=== PATIENT | male | born 1935 | race Caucasian/White ===

== ENCOUNTER 2017-07-02 12:03 | Inpatient (IN) ==
[2017-07-02] MEDS ORDERED: IODIXANOL IV ONE (12:04)
[2017-07-02] MEDS ORDERED: ADENOSINE 3 MG/ML VIAL IV ONE ×3 (12:04→23:00)
[2017-07-02] MEDS ORDERED: DILTIAZEM 25 MG/5 ML VIAL IV ONE ×5 (12:15→19:21)
[2017-07-02] MEDS ORDERED: DILTIAZEM 125 MG in 0.9 % SODIUM CHLORIDE 100 ML IV SCH (12:15)
[2017-07-02] MEDS ORDERED: 0.9 % SODIUM CHLORIDE 1,000 ML IV ONE ×3 (12:33→18:24)
--- NOTE | 2017-07-02 12:35 | Emergency Department Note ---
Arrhythmia/Palpitations HPI - General Chief Complaint: Arrhythmia/Palpitations Stated Complaint: rapid heart rate Time Seen by Provider: 07/02/17 12:15 Source: patient Mode of arrival: ambulatory Limitations: no limitations - History of Present Illness HPI Narrative: This patient was sent over from [facility] office with a tachycardia syndrome. Patient is asymptomatic except for up when walking around when he gets a little short of breath. He was slightly hypotensive in the 90s at the office. He has had this a couple times in the recent past. - Related Data Home Medications Medication Instructions Recorded Confirmed aspirin 81 mg tablet,delayed 81 mg PO QDAY tab 05/03/15 03/12/17 release albuterol sulfate concentrate 2.5 5 mg INHALATION Q4H PRN 08/26/15 03/12/17 mg/0.5 mL solution for nebulization ipratropium-albuterol 0.5 mg-3 INHALATION 0 Days 08/26/15 03/12/17 mg(2.5 mg base)/3 mL nebulization soln ascorbic acid (vitamin C) 250 mg 250 mg PO QDAY 03/10/16 03/12/17 tablet losartan 100 mg tablet 50 mg PO QDAY tab 12/18/16 03/12/17 cholecalciferol (vitamin D3) PO QDAY 02/23/17 03/12/17 Previous Rx's Medication Instructions Recorded ferrous sulfate 325 mg (65 mg 325 mg PO .COMPLEX #30 tab 09/24/15 iron) tablet furosemide 20 mg tablet 20 mg PO QDAY #90 tab 10/08/16 atorvastatin 10 mg tablet 10 mg PO QDAY #90 tab 11/10/16 predniSONE [Prednisone] 20 mg PO DAILY #23 tab 01/06/17 amlodipine 10 mg tablet 10 mg PO QDAY #30 tab 04/09/17 hydrocodone 7.5 mg-acetaminophen 1 tab PO Q6H PRN #30 tab 06/04/17 325 mg tablet tramadol 50 mg tablet 50 mg PO TID PRN 90 Days 07/01/17 Allergies Allergy/AdvReac Type Severity Reaction Status Date / Time No Known Drug Allergies Allergy Verified 07/02/17 11:07 Review of Systems Constitutional: Denies: fever Eyes: Denies: eye pain ENT ED: Denies: ear pain Cardiovascular: Reports: dyspnea on exertion. Denies: chest pain Respiratory: Denies: cough Gastrointestinal: Denies: abdominal pain, nausea Genitourinary: Denies: urgency Musculoskeletal: Denies: back pain Integumentary: Denies: rash Neurological: Denies: headache Past Medical History - Past Medical History [facility] Narrative: Medical History (Last Updated 07/02/17 @ 11:45 by Janine Andujar, ANDREEA, EXHIBITION CARVER) Acute exacerbation of chronic obstructive airways disease (Acute) Hypotension (Acute) Cardiac arrhythmia (Chronic) Kidney disease, chronic, stage III (GFR 30-59 ml/min) (Chronic) Hematuria (Chronic) Bilateral carotid artery stenosis (Chronic) Heart valve disease (Chronic) Tobacco abuse (Chronic) SVT (supraventricular tachycardia) (Chronic) Pulmonary hypertension, secondary (Chronic) Mitral valve disorder (Chronic) Lung nodule (Chronic) Hypertension, essential (Chronic) Hyperlipidemia (Chronic) Hip pain (Chronic) Erectile dysfunction (Chronic) CAD (coronary artery disease) (Chronic) Colon polyp (Chronic) COPD (chronic obstructive pulmonary disease) (Chronic) Back pain (Chronic) Anemia (Chronic) Allergic rhinitis (Chronic) Emphysema lung (Resolved) Hemoptysis (Resolved) History of peptic ulcer disease (Resolved) Hx of angiography (Resolved) Hypercholesteremia (Resolved) Hyperkalemia (Resolved) Muscle strain of right upper extremity (Resolved) Pneumonia (Resolved) Pneumothorax after biopsy (Resolved) Screening for colon cancer (Resolved) Screening for prostate cancer (Resolved) Past Surgical History (Last Reviewed 07/02/17 @ 11:44 by Janine Andujar, ANDREEA, EXHIBITION CARVER) History of gastrectomy (Chronic) Hx of appendectomy (Acute) History of carotid endarterectomy (Resolved) History of dental surgery (Resolved) Hx of angioplasty (Resolved) Hx of appendectomy (Resolved) Hx of colonoscopy (Resolved) Hx of esophagogastroduodenoscopy (Resolved) Ulcer, surgical (Resolved) Family History (Last Reviewed 07/02/17 @ 11:44 by Janine Andujar, ANDREEA, EXHIBITION CARVER) mother Family history of malignant neoplasm, Onset Age: 91 Family history of arthritis grandfather (maternal) Acute myocardial infarction son Osteoarthritis Malignant neoplasm of pancreas Medical history: Reports: COPD, coronary artery disease, hyperlipidemia, hypertension, peripheral artery disease, renal disease (Stage III), valvular heart disease (Aortic), other (Pulmonary hypertension, bilateral hearing loss, history of ulcers) Surgical history ED: Reports: angioplasty/stent, appendectomy, carotid endarterectomy, other (Billroth II) Physical Exam - General Limitations: no limitations General appearance: alert, in no apparent distress - Head Head exam: atraumatic, normocephalic - Eye Eye exam: Present: normal appearance - ENT ENT exam: normal exam - Neck Neck exam: Present: normal inspection - Chest Chest inspection: Present: normal inspection - Respiratory Respiratory exam: Present: normal lung sounds bilaterally - Cardiovascular Cardiovascular exam: Present: regular rate, normal rhythm, normal heart sounds - Abdominal Exam Abdominal exam: Present: soft. Absent: distention, tenderness - Neurological Exam Neurological exam: Present: alert - Psychiatric Psychiatric exam: Present: normal affect, normal mood - Skin Skin exam: Present: warm, dry, intact, normal color Course Vital Signs Temperature 97.6 F 07/02/17 12:04 Respiratory Rate 18 07/02/17 12:04 Blood Pressure 108/97 07/02/17 12:04 Pulse Oximetry (%) 97 07/02/17 12:04 Temperature 97.6 F 07/02/17 12:04 Pulse Rate 74 07/02/17 17:21 Respiratory Rate 15 07/02/17 17:21 Blood Pressure 120/70 07/02/17 17:15 Pulse Oximetry (%) 93 07/02/17 17:21 Arrhythmia/Palpitations - [facility] Narrative Medical decision making narrative: This patient was given 6 and then 12 mg of adenosine and did show some flutter waves. We then treated him with diltiazem 5 mg drip and multiple boluses of 10 mg each. His initial troponin was slightly elevated at 0.06 but repeat was 0.04 4 hours later. Have discussed the case with Dr. Ma and he will be admitted to telemetry. - Lab Data Lab results reviewed: Yes I reviewed the patient's lab results. Result diagrams: 07/02/17 12:25 07/02/17 12:25 Lab Results 07/02/17 07/02/17 07/02/17 Range/Units 12:25 12:25 12:25 WBC 7.3 (4.5-11.0) K/mcL RBC 3.69 L (4.50-5.90) M/mcL Hgb 11.6 L (13.5-16.5) g/dL Hct 35.0 L (41.0-55.0) % MCV 94.9 (80.0-100.0) fL MCH 31.4 (26.0-34.0) pg MCHC 33.1 (31.0-36.0) g/dL RDW 14.3 (11.5-14.5) % Plt Count 219 (140-440) K/mcL MPV 7.8 (7.4-10.4) fL Gran % 69.8 (38.0-78.0) % Lymph % (Auto) 18.7 (15.5-49.0) % [place] % (Auto) 9.4 (1.0-12.0) % Eos % (Auto) 1.5 (0.0-7.0) % Baso % (Auto) 0.6 (0.0-2.0) % Gran # 5.1 (1.8-8.0) K/mcL Lymph # (Auto) 1.4 L (1.5-4.8) K/mcL [place] # (Auto) 0.7 (0.1-0.9) K/mcL Eos # (Auto) 0.1 (0.0-0.7) K/mcL Baso # (Auto) 0 (0.0-0.3) K/mcL Sodium 138 (133-145) mmol/L Potassium 4.9 (3.3-5.1) mmol/L Chloride 101 (96-108) mmol/L Carbon Dioxide 25 (22-30) mmol/L Anion Gap 12.0 (8-16) BUN 32 H (8-23) mg/dl Creatinine 1.4 H (0.7-1.2) mg/dl GFR Calculation 46 Glucose 124 H (70-105) mg/dL Calcium 8.9 (8.6-10.4) mg/dl Total Bilirubin 0.4 (0.0-1.0) mg/dL AST 33 (0-37) U/l ALT 39 (0-40) U/l Alkaline Phosphatase 98 (39-117) U/L Troponin T 0.06 H* (0-0.03) ng/ml Total Protein 6.3 (5.9-8.4) gm/dL Albumin 3.8 (3.2-5.2) gm/dL Globulin 2.5 (2.2-3.7) gm/dL Albumin/Globulin Ratio 1.5 (1.0-2.3) 07/02/ Range/Units 16:10 WBC (4.5-11.0) K/mcL RBC (4.50-5.90) M/mcL Hgb (13.5-16.5) g/dL Hct (41.0-55.0) % MCV (80.0-100.0) fL MCH (26.0-34.0) pg MCHC (31.0-36.0) g/dL RDW (11.5-14.5) % Plt Count (140-440) K/mcL MPV (7.4-10.4) fL Gran % (38.0-78.0) % Lymph % (Auto) (15.5-49.0) % [place] % (Auto) (1.0-12.0) % Eos % (Auto) (0.0-7.0) % Baso % (Auto) (0.0-2.0) % Gran # (1.8-8.0) K/mcL Lymph # (Auto) (1.5-4.8) K/mcL [place] # (Auto) (0.1-0.9) K/mcL Eos # (Auto) (0.0-0.7) K/mcL Baso # (Auto) (0.0-0.3) K/mcL Sodium (133-145) mmol/L Potassium (3.3-5.1) mmol/L Chloride (96-108) mmol/L Carbon Dioxide (22-30) mmol/L Anion Gap (8-16) BUN (8-23) mg/dl Creatinine (0.7-1.2) mg/dl GFR Calculation Glucose (70-105) mg/dL Calcium (8.6-10.4) mg/dl Total Bilirubin (0.0-1.0) mg/dL AST (0-37) U/l ALT (0-40) U/l Alkaline Phosphatase (39-117) U/L Troponin T 0.04 H* (0-0.03) ng/ml Total Protein (5.9-8.4) gm/dL Albumin (3.2-5.2) gm/dL Globulin (2.2-3.7) gm/dL Albumin/Globulin Ratio (1.0-2.3) Disposition Pt seen by COFFEE SUPERVISOR/PA only: No Clinical Impression: Atrial flutter Disposition: Xfer As Outpt/Obs ([facility]) Condition: Good Referrals: Janine Andujar DNP, EXHIBITION CARVER [Primary Care Provider] - Time of Disposition: 17:44
[2017-07-02 12:48] LABS: Basophils # (Auto) 0 K/mcL (0.0-0.3); Basophils % (Auto) 0.6 % (0.0-2.0); Eosinophils # (Auto) 0.1 K/mcL (0.0-0.7); Eosinophils % (Auto) 1.5 % (0.0-7.0); Granulocytes % (Auto) 69.8 % (38.0-78.0); Lymphocytes # (Auto) 1.4 K/mcL (1.5-4.8); Lymphocytes % (Auto) 18.7 % (15.5-49.0); Mean Cell Volume 94.9 fL (80.0-100.0); Mean Corpuscular HGB Conc 33.1 g/dL (31.0-36.0); Mean Corpuscular Hemoglobin 31.4 pg (26.0-34.0); Monocytes # (Auto) 0.7 K/mcL (0.1-0.9); Monocytes % (Auto) 9.4 % (1.0-12.0); Platelet Count 219 K/mcL (140-440); RBC 3.69 M/mcL (4.50-5.90); Red Cell Distribution Width 14.3 % (11.5-14.5)
[2017-07-02 13:15] LABS: ALT/SGPT 39 U/l (0-40); Albumin 3.8 gm/dL (3.2-5.2); Albumin/Globulin Ratio 1.5 (1.0-2.3); Alkaline Phosphatase 98 U/L (39-117); Blood Urea Nitrogen 32 mg/dl (8-23)
[2017-07-02] MEDS ORDERED: traMADol 50 MG TABLET PO ONE (18:23)
[2017-07-02] MEDS ORDERED: HYDROcodone/APAP 5/325MG TABLET PO ONE (18:23)
[2017-07-02] MEDS ORDERED: ONDANSETRON 4 MG/2 ML VIAL IV PRN (20:36)
[2017-07-02] MEDS ORDERED: traZODone HCL 50 MG TABLET PO PRN (20:36)
[2017-07-02] MEDS ORDERED: guaiFENesin/CODEINE 10 ML UDC PO PRN (20:36)
[2017-07-02] MEDS ORDERED: POTASSIUM CHLORIDE 20 MEQ PACKET PO PRN (20:36)
[2017-07-02] MEDS ORDERED: MAGNESIUM SULFATE 2 GM/50 ML BAG IV PRN (20:36)
[2017-07-02] MEDS ORDERED: METOPROLOL TARTRATE 25 MG TABLET PO SCH (21:00)
[2017-07-02] MEDS: BUDESONIDE 0.5 MG/2 ML AMPUL.NEB NEB SCH (21:10)
[2017-07-02] MEDS: IPRATROPIUM 2.5 ML AMPUL.NEB NEB PRN (21:10)
[2017-07-02] MEDS ORDERED: IPRATROPIUM 2.5 ML AMPUL.NEB ONE (21:14)
[2017-07-02] MEDS ORDERED: DILTIAZEM 30 MG TABLET PO ONE (21:17)
[2017-07-02] MEDS: SENNOSIDES/DOCUSATE SODIUM 1 TAB TABLET PO SCH (21:18)
[2017-07-02] MEDS: METOPROLOL TARTRATE 5 MG/5 ML VIAL IV SCH (21:18)
[2017-07-02] MEDS: DOCUSATE SODIUM 100 MG CAPSULE PO SCH (21:18)
[2017-07-02] MEDS: HEPARIN 5,000 UNIT/ML VIAL SQ SCH (21:18)
--- NOTE | 2017-07-02 21:44 | Internal Med History&Physical ---
Medical - H&P: HPI Patient information: Note initiated : 07/02/17 at 9:40 pm Service Date, if different from initiated Date: [] Patient: Fareed West 81 y/o M admitted on 07/02/17 for Rapid Heart Rate. Chief Complaint: [] Chief complaint: SOB History of present illness: Mr. West is a 81 year old M who was seen at [facility] Aval[facility]'s office for chest palpitations and shortness of breath. e was subsequently referred to [facility] ER where initial workup was significant for a flutter with RVR with rate around 150. Patient was started on Cardizem drip. Initial troponin 0.06 followed by repeat troponin 4 hour 0.04. Patient responded well to diltiazem drip and subsequently hospitalist service was consulted. Other than that further workup in the ER was essentially unremarkable including CT angiogram chest. At the time of examination patient is alert oriented however fairly short of breath. he was able to answer most of the questions but unable to talk in full sentences. He has been seeing railroad dining car stewardess Dr. Truong along with interventional radiologist Ambrocio Rodriguez for PAD. he denies recent changes in medication. He denies high salt intake diet. He denies chest pain headache photophobia or sick contacts. Denies fever or productive cough. He is currently on aspirin and Plavix. eyes normal baseline he is able to ambulate and currently lives with his son and [id number]. He is fairly functional He denies diarrhea or abdominal pain joint pain and rash. REVIEW OF SYSTEMS a 10 point review of systems is performed and is negative except for those discussed above Review of systems: s above Medical - H&P: PMH Medical history: peripheral artery disease coronary artery disease ypertension Hyperlipidemia COPD Degenerative joint disease Surgical history: History of gastrectomy (Chronic) Hx of appendectomy (Acute) History of carotid endarterectomy (Resolved) History of dental surgery (Resolved) Hx of angioplasty (Resolved) Hx of appendectomy (Resolved) Hx of colonoscopy (Resolved) Hx of esophagogastroduodenoscopy (Resolved) Ulcer, surgical (Resolved) Pertinent family history: mother Family history of malignant neoplasm, Onset Age: 91 Family history of arthritis grandfather (maternal) Acute myocardial infarction son Osteoarthritis Malignant neoplasm of pancreas Functional capacity: uses cane/walker Drug use: none Alcohol use: none Medical - H&P: Meds Home Medications Medication Instructions Recorded Confirmed Type aspirin 81 mg tablet,delayed 81 mg PO QDAY tab 05/03/15 03/12/17 History release albuterol sulfate concentrate 2.5 5 mg INHALATION Q4H PRN 08/26/15 03/12/17 History mg/0.5 mL solution for nebulization ipratropium-albuterol 0.5 mg-3 INHALATION 0 Days 08/26/15 03/12/17 History mg(2.5 mg base)/3 mL nebulization soln ferrous sulfate 325 mg (65 mg 325 mg PO .COMPLEX #30 tab 09/24/15 03/12/17 Rx iron) tablet ascorbic acid (vitamin C) 250 mg 250 mg PO QDAY 03/10/16 03/12/17 History tablet furosemide 20 mg tablet 20 mg PO QDAY #90 tab 10/08/16 03/12/17 Rx atorvastatin 10 mg tablet 10 mg PO QDAY #90 tab 11/10/16 03/12/17 Rx losartan 100 mg tablet 50 mg PO QDAY tab 12/18/16 03/12/17 History predniSONE [Prednisone] 20 mg PO DAILY #23 tab 01/06/17 03/12/17 Rx cholecalciferol (vitamin D3) PO QDAY 02/23/17 03/12/17 History amlodipine 10 mg tablet 10 mg PO QDAY #30 tab 04/09/17 Rx hydrocodone 7.5 mg-acetaminophen 1 tab PO Q6H PRN #30 tab 06/04/17 Rx 325 mg tablet tramadol 50 mg tablet 50 mg PO TID PRN 90 Days 07/01/17 Rx Allergies Allergy/AdvReac Type Severity Reaction Status Date / Time No Known Drug Allergies Allergy Verified 07/02/17 11:07 Medical - H&P: Exam - Constitutional Vitals: Temp Pulse Resp BP Pulse Ox 97.6 F 92 H 18 113/80 94 07/02/17 20:47 07/02/17 21:11 07/02/17 21:11 07/02/17 20:47 07/02/17 21:27 General appearance: thin Exam: pupils symmetric oral cavity dry No eardischarge head normocephalic neck no lymphadenopathy s1 and S2 irregular rhythm, eSM grade 1 prolonged expiratory rhonchi bdomen soft Lower extremity no cyanosis clubbing stasis changes loss of hair folliclesLower extremity kin brawny induration lower extremity Psych alert cooperative neuro nonfocal Medical - H&P: Reslt - Labs CBC & Chem 7: 07/02/17 12:25 07/02/17 12:25 Medical - H&P: A/P (1) Atrial flutter with rapid ventricular response Current visit: Yes Status: Acute * A flutter with RVR-on diltiazem drip. ransition to oral diltiazem. Echo reviewed. EF 65%withmoderate to severe AR. ontinue rate control measures. Admitted to telemetry * cOPD exacerbations continue bronchodilators/nhaled steroids * History of peripheral vascular disease continue aspirin and statin * Hypertension continue olmesartan/amlodipine * full code plan * iV diltiazem,transition to by mouth diltiazem * pre-existing medical condition management as above * admitting to telemetry
[2017-07-02] MEDS: 0.9 % SODIUM CHLORIDE 10 ML SYRINGE IV SCH (22:26)
[2017-07-03] MEDS ORDERED: DILTIAZEM 125 MG in 0.9 % SODIUM CHLORIDE 100 ML IV SCH (00:15)
[2017-07-03] MEDS: ACETAMINOPHEN 325 MG TABLET PO PRN (01:25)
[2017-07-03] MEDS: 0.9 % SODIUM CHLORIDE 10 ML SYRINGE IV SCH ×3 (05:33→22:07)
[2017-07-03 06:23] LABS: Mean Cell Volume 94.7 fL (80.0-100.0); Mean Corpuscular Hemoglobin 31.3 pg (26.0-34.0); Platelet Count 187 K/mcL (140-440); RBC 3.48 M/mcL (4.50-5.90); Red Cell Distribution Width 14.2 % (11.5-14.5)
[2017-07-03 06:54] LABS: ALT/SGPT 80 U/l (0-40); Albumin 3.4 gm/dL (3.2-5.2); Albumin/Globulin Ratio 1.5 (1.0-2.3); Alkaline Phosphatase 139 U/L (39-117); Bilirubin,Direct < 0.2 mg/dL (0.0-0.3); Blood Urea Nitrogen 29 mg/dl (8-23); Gamma Glutamyl Transpeptidase 44 U/L (8-61); Uric Acid 7.5 mg/dL (2.5-8.0)
--- NOTE | 2017-07-03 06:57 | Cat Scan Report ---
CLINICAL INFORMATION: Dyspnea COMPARISON: 03/17/2016 and 04/21/[address] TECHNIQUE: Axial images obtained through the chest. 80 cc intravenous contrast administration was administered, and scanning was performed during pulmonary arterial phase. Sagittally and coronally reformatted images were obtained. MIP reformatted images. FINDINGS: Mediastinal windows show mild enlargement of the central pulmonary arteries compatible with pulmonary hypertension. Pulmonary arteries are well opacified - no evidence of pulmonary embolus. The thoracic aorta normal in contour and caliber with diffuse atherosclerotic plaque. The heart is mildly enlarged and heavy fibrofatty calcific abscess chronic plaque throughout the coronary arteries. A few mildly enlarged lymph nodes in the lower mediastinal region, ranging up to 12 mm in the azygos region, are unchanged previous study. They're almost certainly benign reactive lymph nodes Pulmonary parenchymal windows show severe, but stable, centrilobular emphysema changes featuring chronic bronchitis, elevation lung volumes multiple bullae, predominantly in the upper lobes, and scattered scarring. There is a 19 mm stellate density in the anterior segment left upper lobe (image 44) which shows progression in size since the 03/17/2016 study 1.5 years ago. At that time, it was only 9 mm. A small bandlike region of fibrosis more superiorly in the left upper lobe is stable. There are new moderate sized patchy alveolar infiltrates scattered throughout the right lower lobe (three and, to a lesser extent, the left lower lobe, right middle lobe and both upper lobes. There are also small amounts of debris within the trachea. Findings suspicious for aspiration pneumonia. Small bilateral pleural effusions have also developed. Images through the abdomen show small amount of ascites which is new. The noncontrasted kidneys spleen and liver are grossly normal. Moderate bilateral adrenal hyperplasia again noted IMPRESSION: 1. No evidence of pulmonary embolus 2. Severe centrilobular emphysema changes. Enlarged central pulmonary arteries compatible with pulmonary hypertension related to COPD 3. Moderate sized patchy infiltrates in the peripheral right lower lobe and smaller peripheral infiltrates in the left lower lobe, both upper and right middle lobes. There is also debris within the airways all suspicious for aspiration pneumonia. Small bilateral pleural effusions noted 4. 19 mm enlarging stellate density in the anterior segment of the left upper lobe. While this is likely represents progression of focal fibrosis, neoplasia cannot be excluded 5. Moderate bilateral adrenal hyperplasia - stable 6. Small amount of ascites is noted - new. Interpreted and Authenticated by: Ambrocio Lemus 07/03/17
[2017-07-03 07:18] LABS: Eosinophils % (Manual) 1 % (0-7); Lymphocytes % 17 % (15-49); Monocytes % (Manual) 2 % (1-12); Platelet Estimate NORMAL (NORMAL); RBC Morphology NORMAL (NORMAL); Segmented Neutrophils % 80 % (38-78)
[2017-07-03] MEDS: DILTIAZEM 30 MG TABLET PO SCH ×4 (07:26→23:42)
[2017-07-03] MEDS: MULTIVIT,THER IRON,CA,FA & MIN 1 TABLET PO SCH (07:26)
[2017-07-03] MEDS: DOCUSATE SODIUM 100 MG CAPSULE PO SCH ×2 (07:26→20:43)
[2017-07-03] MEDS: HEPARIN 5,000 UNIT/ML VIAL SQ SCH ×2 (07:26→20:43)
[2017-07-03] MEDS: IPRATROPIUM 2.5 ML AMPUL.NEB NEB PRN ×2 (08:17→19:50)
[2017-07-03] MEDS: BUDESONIDE 0.5 MG/2 ML AMPUL.NEB NEB SCH ×2 (08:17→19:50)
--- NOTE | 2017-07-03 09:01 | XRay Report ---
CLINICAL INFORMATION: Wheezing and shortness of breath COMPARISON: 01/06/2017 FINDINGS: The heart is mildly enlarged - increased from previous study. Mediastinum is unremarkable. The pulmonary arteries are mildly distended and there is mild interstitial edema throughout both lungs. Moderate bibasilar infiltrates have developed with small effusions IMPRESSION: 1. Mild CHF 2. Moderate bibasilar infiltrates with small effusions - suspect aspiration. Interpreted and Authenticated by: Ambrocio Lemus 07/03/17
[2017-07-03] MEDS ORDERED: DILTIAZEM 125 MG in 0.9 % SODIUM CHLORIDE 100 ML IV PRN (10:30)
--- NOTE | 2017-07-03 12:34 | Internal Med Progress Note ---
Medical - PN: Subj Patient information: Note initiated : 07/03/17 at 12:32 pm Service Date, if different from initiated Date: [] Patient: Fareed West a 81 y/o M admitted on 07/02/17 for Rapid Heart Rate. Chief Complaint: [] Interval history: 07/02-Mr. West is a 81 year old M who was seen at [facility] A[facility]'s office for chest palpitations and shortness of breath. e was subsequently referred to [facility] ER where initial workup was significant for a flutter with RVR with rate around 150. Patient was started on Cardizem drip. Initial troponin 0.06 followed by repeat troponin 4 hour 0.04. Patient responded well to diltiazem drip and subsequently hospitalist service was consulted. Other than that further workup in the ER was essentially unremarkable including CT angiogram chest. At the time of examination patient is alert oriented however fairly short of breath. he was able to answer most of the questions but unable to talk in full sentences. He has been seeing client solutions manager Dr. Truong along with interventional radiologist Ambrocio Rodriguez for PAD. he denies recent changes in medication. He denies high salt intake diet. He denies chest pain headache photophobia or sick contacts. Denies fever or productive cough. He is currently on aspirin and Plavix. \ 07/03- atient doing well. Now in sinus rhythm. On diltiazem 60 milligrams 4 times a day. No overnight fever chills nausea vomiting chest pain. no concerns per staff. Ambulating and tolerating diet. - Constitutional Vitals: Vital Signs Temp Pulse Resp BP Pulse Ox 97.4 F 78 20 154/65 94 07/03/17 07:05 07/03/17 08:18 07/03/17 08:18 07/03/17 07:05 07/03/17 08:18 Period Temp Pulse Resp BP Sys/Roche Pulse Ox Last 24 Hr 97.0 F-98.2 F 77-92 18-21 90-154/48-87 85-99 Intake and Output 07/02/17 07/03/17 07/03/17 21:59 05:59 13:59 Intake Total 42 / 42 420 / 420 Output Total 225 / 225 200 / 200 Balance -183 / -183 220 / 220 Weight 120 lb 120 lb Patient Weight 07/04/17 05:59 Weight 120 lb Intake & Output: Intake & Output 07/02/17 07/03/17 07/03/17 21:59 05:59 13:59 Intake Total 42 / 42 420 / 420 Output Total 225 / 225 200 / 200 Balance -183 / -183 220 / 220 Weight 120 lb 120 lb Intake: IV 42 / 42 Oral 420 / 420 Output: Void Amount 225 / 225 200 / 200 Other: Meal Breakfast Percent of Meal Consumed 100% Feeding Ability Assist with Tray Set Up # Voids 1 General appearance: no acute distress, thin Exam: lert oriented nonlabored breathing nondistended abdomen telemetry tachycardia with sinus Medical - PN: Obj Da - Labs CBC & Chem 7: 07/03/17 03:51 07/03/17 03:51 Labs: Abnormal Lab Results 07/03/17 07/03/17 03:51 03:51 RBC 3.48 L Hgb 10.9 L Hct 33.0 L Seg Neutrophils % 80 H Potassium 5.2 H Carbon Dioxide 19 L BUN 29 H Calcium 8.5 L AST 70 H ALT 80 H Alkaline Phosphatase 139 H Total Protein 5.6 L Meds: Medications Acetaminophen (Tylenol) 650 mg PO Q4-6HP PRN PRN Reason: PAIN/FEVER > 101 Last Admin: 07/03/17 01:25 Dose: 650 mg Budesonide (Pulmicort) 0.5 mg NEB Q12 [facility] Last Admin: 07/03/17 08:17 Dose: 0.5 mg Diltiazem HCl (Cardizem) 60 mg PO ACHS [facility] Last Admin: 07/03/17 07:26 Dose: 60 mg Docusate Sodium (Colace) 100 mg PO BID [facility] Last Admin: 07/03/17 07:26 Dose: 100 mg Guaifenesin/Codeine Phosphate (Robitussin Ac) 10 ml PO Q4HP PRN PRN Reason: Cough Heparin Sodium (Porcine) (Heparin) 5,000 unit SQ Q12 [facility] Last Admin: 07/03/17 07:26 Dose: 5,000 unit Magnesium Sulfate (Magnesium Sulfate) 2 gm in 50 mls @ 50 mls/hr IV UD PRN PRN Reason: MG = or < 1.7 Diltiazem HCl 125 mg/ Sodium (Chloride) 125 mls @ 5 mls/hr IV Q12HP PRN; Protocol; 5 MG/HR PRN Reason: Tachyarrhythmias Ipratropium Bishop (Atrovent) 2.5 ml NEB Q6HRT PRN PRN Reason: Wheezing Last Admin: 07/03/17 08:17 Dose: 2.5 ml Iron Carb/Multivit/[place]/Folic Acid (Multivitamin W/Minerals) 1 tab PO DAILY [facility] Last Admin: 07/03/17 07:26 Dose: 1 tab Ondansetron HCl (Zofran) 4 mg IV Q4-6HP PRN PRN Reason: Nausea And Vomiting Potassium Chloride (Klor-Con) 40 meq PO DAILYP PRN PRN Reason: K+ < 3.5 Senna/Docusate Sodium (Senna Plus Tablet) 1 tab PO HS [facility] Last Admin: 07/02/17 21:18 Dose: Not Given Sodium Chloride (Saline Flush) 10 ml IV Q8 [facility] Last Admin: 07/03/17 05:33 Dose: 10 ml Trazodone HCl (Desyrel) 50 mg PO HSP PRN PRN Reason: Insomnia Last Admin: 07/02/17 21:18 Dose: 50 mg Warfarin Sodium (Coumadin Per Pharmacy) 1 order PO DAILY@1400 [facility] Medical - PN: A/P - Time Spent With Patient Total time spent is greater than 50% in coordination of care (as documented) at patient's floor/unit and/or counseling patient: 15 - 24 minutes (1) Atrial flutter with rapid ventricular response Status: Acute Assessment and plan: * A flutter with RVR-esponded well to diltiazem drip and converted to sinus. Continue oral diltiazem. Echo reviewed. EF 65% with moderate to severe AR. * COPD exacerbations-esponding well to bronchodilators/nhaled steroids * History of peripheral vascular disease continue aspirin and statin * Hypertension continue olmesartan/amlodipine * full code plan * Continue oral diltiazem * pre-existing medical condition management as above * ossible discharge in 24 hours Current Visit: Yes Medical - PN: Qual - VTE Deep Vein Thrombosis/Pulmonary Embolism Present on Admission: No
[2017-07-03] MEDS: SENNOSIDES/DOCUSATE SODIUM 1 TAB TABLET PO SCH (20:43)
[2017-07-04] MEDS ORDERED: DILTIAZEM 125 MG/25 ML VIAL IV ONE (05:23)
[2017-07-04] MEDS ORDERED: ADENOSINE 3 MG/ML VIAL IV ONE (05:37)
[2017-07-04 06:06] LABS: Mean Cell Volume 94.3 fL (80.0-100.0); Mean Corpuscular HGB Conc 33.3 g/dL (31.0-36.0); Mean Corpuscular Hemoglobin 31.4 pg (26.0-34.0); Platelet Count 218 K/mcL (140-440); RBC 3.67 M/mcL (4.50-5.90); Red Cell Distribution Width 14.6 % (11.5-14.5)
[2017-07-04] MEDS: 0.9 % SODIUM CHLORIDE 10 ML SYRINGE IV SCH ×3 (06:15→23:59)
[2017-07-04] MEDS: DILTIAZEM 30 MG TABLET PO SCH ×4 (06:15→23:59)
[2017-07-04 06:50] LABS: ALT/SGPT 63 U/l (0-40); Albumin 3.4 gm/dL (3.2-5.2); Albumin/Globulin Ratio 1.4 (1.0-2.3); Alkaline Phosphatase 136 U/L (39-117); Bilirubin,Direct < 0.2 mg/dL (0.0-0.3); Blood Urea Nitrogen 28 mg/dl (8-23); Gamma Glutamyl Transpeptidase 43 U/L (8-61); Magnesium 2.1 mg/dL (1.6-2.5); Uric Acid 7.7 mg/dL (2.5-8.0)
[2017-07-04 06:51] LABS: Band Neutrophils % 2 % (0-10); Lymphocytes % 7 % (15-49); Monocytes % (Manual) 8 % (1-12); Platelet Estimate NORMAL (NORMAL); RBC Morphology NORMAL (NORMAL); Segmented Neutrophils % 81 % (38-78)
[2017-07-04] MEDS: IPRATROPIUM 2.5 ML AMPUL.NEB NEB PRN ×2 (07:23→19:52)
[2017-07-04] MEDS: BUDESONIDE 0.5 MG/2 ML AMPUL.NEB NEB SCH ×2 (07:23→19:52)
[2017-07-04] MEDS: ACETAMINOPHEN 325 MG TABLET PO PRN (08:19)
[2017-07-04] MEDS: HEPARIN 5,000 UNIT/ML VIAL SQ SCH ×2 (09:31→20:23)
[2017-07-04] MEDS: MULTIVIT,THER IRON,CA,FA & MIN 1 TABLET PO SCH (09:31)
[2017-07-04] MEDS: DOCUSATE SODIUM 100 MG CAPSULE PO SCH ×2 (09:32→20:18)
[2017-07-04] MEDS ORDERED: HYDROCODONE/APAP 7.5/325MG TABLET PO PRN (09:37)
--- NOTE | 2017-07-04 09:54 | Internal Med Progress Note ---
Medical - PN: Subj Patient information: Note initiated : 07/04/17 at 9:52 am Service Date, if different from initiated Date: [] Patient: Fareed West 81 y/o M admitted on 07/02/17 for Rapid Heart Rate. Chief Complaint: [] Interval history: 07/02-Mr. West is a 81 year old M who was seen at [facility] Avalos's office for chest palpitations and shortness of breath. e was subsequently referred to [facility] ER where initial workup was significant for a flutter with RVR with rate around 150. Patient was started on Cardizem drip. Initial troponin 0.06 followed by repeat troponin 4 hour 0.04. Patient responded well to diltiazem drip and subsequently hospitalist service was consulted. Other than that further workup in the ER was essentially unremarkable including CT angiogram chest. At the time of examination patient is alert oriented however fairly short of breath. he was able to answer most of the questions but unable to talk in full sentences. He has been seeing bookbinding machine operator Dr. Truong along with interventional radiologist Ambrocio Rodriguez for PAD. he denies recent changes in medication. He denies high salt intake diet. He denies chest pain headache photophobia or sick contacts. Denies fever or productive cough. He is currently on aspirin and Plavix. \ 07/03- atient doing well. Now in sinus rhythm. On diltiazem 60 milligrams 4 times a day. No overnight fever chills nausea vomiting chest pain. no concerns per staff. Ambulating and tolerating diet. 07/04- patient developed runs of SVT around 180. Responded to adenosine. Diltiazem drip started but discontinued after patient converted to sinus. therwiseno other overnight events including fever chills chest pain shortness of breath. Patient feels better. Ongoing physical therapy. Continue telemetry monitoring. Diltiazem at 60every 6 hours. anticipate discharge in 24 hours if no further episodes of rapid ventricular rate - Constitutional Vitals: Vital Signs Temp Pulse Resp BP Pulse Ox 100.1 F H 90 22 141/65 86 L 07/04/17 06:26 07/04/17 07:24 07/04/17 07:24 07/04/17 06:37 07/04/17 08:36 Period Temp Pulse Resp BP Sys/Roche Pulse Ox Last 24 Hr 97.7 F-100.1 F 70-90 18-22 123-165/60-129 86-100 Intake and Output 07/03/17 07/04/17 07/04/17 21:59 05:59 13:59 Intake Total 600 / 600 120 / 120 Output Total 350 / 350 400 / 400 Balance 250 / 250 -400 / -400 120 / 120 Weight 123 lb 3.2 oz Intake & Output: Intake & Output 07/03/17 07/04/17 07/04/17 21:59 05:59 13:59 Intake Total 600 / 600 120 / 120 Output Total 350 / 350 400 / 400 Balance 250 / 250 -400 / -400 120 / 120 Weight 123 lb 3.2 oz Intake: Oral 600 / 600 120 / 120 Output: Void Amount 350 / 350 400 / 400 Other: Meal Dinner Breakfast Percent of Meal Consumed 50% 100% Feeding Ability Assist with Tray Set Up Independent # Bowel Movements 0 1 General appearance: no acute distress, thin Exam: alert oriented nonlabored breathing with minimal rhonchi No pallor no anxiety Medical - PN: Obj Da - Labs CBC & Chem 7: 07/04/17 04:00 07/04/17 04:00 Labs: Abnormal Lab Results 07/04/17 07/04/17 07/03/17 04:00 04:00 03:51 RBC 3.67 L Hgb 11.5 L Hct 34.6 L RDW 14.6 H Seg Neutrophils % 81 H Lymphocytes % 7 L Potassium 5.2 H Carbon Dioxide 19 L BUN 28 H 29 H Calcium 8.5 L AST 40 H 70 H ALT 63 H 80 H Alkaline Phosphatase 136 H 139 H Total Protein 5.6 L 07/03/17 03:51 RBC 3.48 L Hgb 10.9 L Hct 33.0 L RDW Seg Neutrophils % 80 H Lymphocytes % Potassium Carbon Dioxide BUN Calcium AST ALT Alkaline Phosphatase Total Protein Meds: Medications Acetaminophen (Tylenol) 650 mg PO Q4-6HP PRN PRN Reason: PAIN/FEVER > 101 Last Admin: 07/04/17 08:19 Dose: 650 mg Hydrocodone Bitart/Acetaminophen ([place] 7.5/325mg) 1 tab PO Q6HP PRN PRN Reason: pain Aspirin (Ecotrin) 325 mg PO DAILY ONOFRE Atorvastatin Calcium (Lipitor) 10 mg PO HS ONOFRE Budesonide (Pulmicort) 0.5 mg NEB Q12 [facility] Last Admin: 07/04/17 07:23 Dose: 0.5 mg Diltiazem HCl (Cardizem) 60 mg PO Q6 [facility] Last Admin: 07/04/17 06:15 Dose: 60 mg Docusate Sodium (Colace) 100 mg PO BID [facility] Last Admin: 07/04/17 09:32 Dose: Not Given Furosemide (Lasix) 20 mg PO QDAY [facility] Guaifenesin/Codeine Phosphate (Robitussin Ac) 10 ml PO Q4HP PRN PRN Reason: Cough Heparin Sodium (Porcine) (Heparin) 5,000 unit SQ Q12 [facility] Last Admin: 07/04/17 09:31 Dose: 5,000 unit Magnesium Sulfate (Magnesium Sulfate) 2 gm in 50 mls @ 50 mls/hr IV UD PRN PRN Reason: MG = or < 1.7 Diltiazem HCl 125 mg/ Sodium (Chloride) 125 mls @ 5 mls/hr IV Q12HP PRN; Protocol; 5 MG/HR PRN Reason: Tachyarrhythmias Ipratropium Chama (Atrovent) 2.5 ml NEB Q6HRT PRN PRN Reason: Wheezing Last Admin: 07/04/17 07:23 Dose: 2.5 ml Iron Carb/Multivit/[place]/Folic Acid (Multivitamin W/Minerals) 1 tab PO DAILY [facility] Last Admin: 07/04/17 09:31 Dose: 1 tab Losartan Potassium (Cozaar) 50 mg PO DAILY [facility] Non-Formulary Medication (Albuterol Sulfate [Albuterol Sulfate]) 3 mg INHALATION TID [facility] Ondansetron HCl (Zofran) 4 mg IV Q4-6HP PRN PRN Reason: Nausea And Vomiting Potassium Chloride (Klor-Con) 40 meq PO DAILYP PRN PRN Reason: K+ < 3.5 Senna/Docusate Sodium (Senna Plus Tablet) 1 tab PO HS [facility] Last Admin: 07/03/17 20:43 Dose: 1 tab Sodium Chloride (Saline Flush) 10 ml IV Q8 [facility] Last Admin: 07/04/17 06:15 Dose: 10 ml Trazodone HCl (Desyrel) 50 mg PO HSP PRN PRN Reason: Insomnia Last Admin: 07/02/17 21:18 Dose: 50 mg Medical - PN: A/P - Time Spent With Patient Total time spent is greater than 50% in coordination of care (as documented) at patient's floor/unit and/or counseling patient: 25 - 35 minutes (1) Atrial flutter with rapid ventricular response Status: Acute Assessment and plan: * supraventricular tachycardia-responded to adenosine and now in sinus * A flutter with RVR-ow in sinus. continued Cardizem 60 every . echo reviewed. moderate to severe AR. * COPD exacerbation-clinically resolved and now at baseline * History of peripheral vascular disease continue aspirin and statin. * Hypertension continue olmesartan/amlodipine. systolics around 140 * full code plan * Continue telemetry monitoring * Continue oral diltiazem * pre-existing medical condition management as above Current Visit: Yes Medical - PN: Qual - VTE Deep Vein Thrombosis/Pulmonary Embolism Present on Admission: No
[2017-07-04] MEDS ORDERED: LOSARTAN 50 MG TABLET PO ONE (12:28)
[2017-07-04] MEDS ORDERED: FUROSEMIDE 20 MG TABLET PO ONE (12:30)
[2017-07-04] MEDS ORDERED: ASPIRIN 325 MG ENTERIC COATED TABLET PO ONE (12:30)
[2017-07-04] MEDS ORDERED: ALBUTEROL SULFATE 3 MG INHALATION SCH (15:00)
[2017-07-04] MEDS: SENNOSIDES/DOCUSATE SODIUM 1 TAB TABLET PO SCH (20:18)
[2017-07-04] MEDS ORDERED: ATORVASTATIN 20 MG TABLET PO SCH (21:00)
[2017-07-05] MEDS: 0.9 % SODIUM CHLORIDE 10 ML SYRINGE IV SCH ×2 (05:37→09:47)
[2017-07-05] MEDS: DILTIAZEM 30 MG TABLET PO SCH (05:37)
[2017-07-05 05:55] LABS: Mean Cell Volume 94.9 fL (80.0-100.0); Mean Corpuscular HGB Conc 32.8 g/dL (31.0-36.0); Mean Corpuscular Hemoglobin 31.2 pg (26.0-34.0); Platelet Count 227 K/mcL (140-440); RBC 4.02 M/mcL (4.50-5.90); Red Cell Distribution Width 14.9 % (11.5-14.5)
[2017-07-05 06:24] LABS: ALT/SGPT 46 U/l (0-40); Albumin 3.3 gm/dL (3.2-5.2); Albumin/Globulin Ratio 1.4 (1.0-2.3); Alkaline Phosphatase 122 U/L (39-117); Bilirubin,Direct < 0.2 mg/dL (0.0-0.3); Blood Urea Nitrogen 25 mg/dl (8-23); Gamma Glutamyl Transpeptidase 39 U/L (8-61)
[2017-07-05 07:04] LABS: Anisocytosis 1+ (NONE SEEN); Band Neutrophils % 1 % (0-10); Eosinophils % (Manual) 1 % (0-7); Lymphocytes % 5 % (15-49); Monocytes % (Manual) 7 % (1-12); Ovalocytes FEW (NONE SEEN); Platelet Estimate NORMAL (NORMAL); RBC Morphology ABNORM (NORMAL); Segmented Neutrophils % 81 % (38-78)
[2017-07-05] MEDS ORDERED: ASPIRIN 325 MG ENTERIC COATED TABLET PO SCH (09:00)
[2017-07-05] MEDS ORDERED: LOSARTAN 50 MG TABLET PO SCH (09:00)
[2017-07-05] MEDS ORDERED: FUROSEMIDE 20 MG TABLET PO SCH (09:00)
--- NOTE | 2017-07-05 09:09 | Discharge Summary ---
Medical - DS: Prov Patient information: Note initiated : 07/05/17 at 9:06 am Service Date, if different from initiated Date: [] Patient: Fareed West 81 y/o M admitted on 07/02/17 for Rapid Heart Rate. Chief Complaint: [] Date of admission: 07/02/17 20:37 Discharge date: 07/05/17 Primary care physician: Janine Andujar Medical - DS: Meds - Discharge Medications Prescriptions: Diltiazem HCl [Diltiazem 24Hr Cd] 240 mg PO DAILY #30 cap.er.24h Active and Home Medications: Home Medications aspirin 81 mg tablet,delayed release 325 mg PO QDAY tab 05/03/15 [History Confirmed 07/02/17 Last Taken 07/02/17] albuterol sulfate concentrate 2.5 mg/0.5 mL solution for nebulization 3 mg INHALATION TID 08/26/15 [History Confirmed 07/02/17 Last Taken 07/02/17] ipratropium-albuterol 0.5 mg-3 mg(2.5 mg base)/3 mL nebulization soln 3 ml INHALATION TID 0 Days 08/26/15 [History Confirmed 07/02/17 Last Taken 07/02/17] ascorbic acid (vitamin C) 250 mg tablet 250 mg PO QDAY 03/10/16 [History Confirmed 07/02/17 Last Taken 07/02/17] furosemide 20 mg tablet 20 mg PO QDAY #90 tab 10/08/16 [Rx Confirmed 07/02/17 Last Taken 07/02/17] atorvastatin 10 mg tablet 10 mg PO QDAY #90 tab 11/10/16 [Rx Confirmed 07/02/17 Last Taken 07/02/17] losartan 100 mg tablet 50 mg PO QDAY tab 12/18/16 [History Confirmed 07/02/17 Last Taken 07/02/17] cholecalciferol (vitamin D3) 1 tab PO QDAY 02/23/17 [History Confirmed 07/02/17 Last Taken 07/02/17] hydrocodone 7.5 mg-acetaminophen 325 mg tablet 1 tab PO Q6H PRN #30 tab [Rx Confirmed 07/02/17 Last Taken 07/02/17] tramadol 50 mg tablet 50 mg PO TID PRN 90 Days 07/01/17 [Rx Confirmed 07/02/17 Last Taken 07/02/17] Ferrous Sulfate 325 mg PO DAILY 07/02/17 [History Confirmed 07/02/17 Last Taken 07/02/17] Diltiazem HCl [Diltiazem 24Hr Cd] 240 mg PO DAILY #30 cap.er.24h 07/05/17 [Rx Last Taken Unknown] Medical - DS: Hosp Hospital course: DISCHARGE DIAGNOSIS * A flutter with RVR-ow in sinus. continued Cardizem 240 XL every day . echo reviewed. moderate to severe AR. * supraventricular tachycardia-responded to adenosine and now in sinus * COPD exacerbation-clinically resolved and now at baseline. Continue bronchodilators as outpatient * History of peripheral vascular disease continue aspirin and statin. * Hypertension continue olmesartan/amlodipine. systolics around 140 BRIEF HOSPITAL COURSE 07/02-Mr. West is a 81 year old M who was seen at [facility] Aval[facility]'s office for chest palpitations and shortness of breath. e was subsequently referred to [facility] ER where initial workup was significant for a flutter with RVR with rate around 150. Patient was started on Cardizem drip. Initial troponin 0.06 followed by repeat troponin 4 hour 0.04. Patient responded well to diltiazem drip and subsequently hospitalist service was consulted. Other than that further workup in the ER was essentially unremarkable including CT angiogram chest. At the time of examination patient is alert oriented however fairly short of breath. he was able to answer most of the questions but unable to talk in full sentences. He has been seeing utility appraiser Dr. Truong along with interventional radiologist Ambrocio Rodriguez for PAD. he denies recent changes in medication. He denies high salt intake diet. He denies chest pain headache photophobia or sick contacts. Denies fever or productive cough. He is currently on aspirin and Plavix. \ 07/03- atient doing well. Now in sinus rhythm. On diltiazem 60 milligrams 4 times a day. No overnight fever chills nausea vomiting chest pain. no concerns per staff. Ambulating and tolerating diet. 07/04- patient developed runs of SVT around 180. Responded to adenosine. Diltiazem drip started but discontinued after patient converted to sinus. the[place]o other overnight events including fever chills chest pain shortness of breath. Patient feels better. Ongoing physical therapy. Continue telemetry monitoring. Diltiazem at 60every 6 hours. anticipate discharge in 24 hours if no further episodes of rapid ventricular rate 07/05- no further episodes of rapid ventricular rhythm. Currently in sinus. o overnight events including fever chills chest palpitation. Tolerating diet and ambulating and tolerating physical therapy. Discharging home with detailed discharge instructions as below. Continue Cardizem 240 extended release daily Discharge diagnosis: flutter with RVR - Time Spent with Patient Total time spent providing and/or coordinating discharge services: Greater than 30 minutes Medical - DS: Exam - Constitutional Vitals: Vital Signs Temp Pulse Resp BP Pulse Ox 07/05/17 08:01 98.8 F 18 146/86 97 07/05/17 08:00 20 98 07/05/17 07:18 83 16 100 07/05/17 04:06 97 07/05/17 04:00 137/70 97 07/05/17 00:10 95 07/05/17 00:00 98.6 F 106/49 94 07/04/17 21:40 100 07/04/17 20:21 88 20 100 07/04/17 20:01 143/73 100 07/04/17 20:00 95 07/04/17 19:50 88 20 07/04/17 16:00 98.6 F 20 137/68 96 07/04/17 15:59 137/68 96 07/04/17 15:57 98.8 F 155/134 95 07/04/17 11:51 122/57 100 07/04/17 11:39 98.4 F 16 122/57 100 07/04/17 10:34 185/81 89 L 07/04/17 10:00 145/70 99 07/04/17 09:19 152/74 81 L Intake and Output 07/04/17 07/05/17 07/05/17 21:59 05:59 13:59 Intake Total 300 / 300 420 / 420 Output Total 375 / 375 500 / 500 250 / 250 Balance -75 / -75 -500 / -500 170 / 170 Intake: Oral 300 / 300 420 / 420 Output: Void Amount 375 / 375 500 / 500 Urine/Stool Mix 250 / 250 Other: Meal Lunch Breakfast Percent of Meal Consumed 50% 100% Feeding Ability Independent Independent # Voids 1 Weight 121 lb 4.8 oz Medical - DS: Data Labs on day of discharge: Labs from last 24 hours 07/05/17 07/05/17 03:50 03:50 WBC 8.3 RBC 4.02 L Hgb 12.5 L Hct 38.2 L MCV 94.9 MCH 31.2 MCHC 32.8 RDW 14.9 H Plt Count 227 MPV 7.7 Total Counted 100 Seg Neutrophils % 81 H Band Neutrophils % 1 Lymphocytes % 5 L Monocytes % (Manual) 7 Eosinophils % (Manual) 1 Reactive Lymphocytes 5 H Platelet Estimate Normal RBC Morphology Abnorm A Anisocytosis 1+ A Ovalocytes Few A Sodium 138 Potassium 4.3 Chloride 101 Carbon Dioxide 27 Anion Gap 10.0 BUN 25 H Creatinine 0.9 GFR Calculation 79 Glucose 98 Uric Acid 7.0 Calcium 8.9 Phosphorus 2.1 L Magnesium 2.0 Total Bilirubin 0.3 Direct Bilirubin < 0.2 GGT 39 AST 29 ALT 46 H Alkaline Phosphatase 122 H Lactate Dehydrogenase 199 Total Protein 5.6 L Albumin 3.3 Globulin 2.3 Albumin/Globulin Ratio 1.4 Triglycerides 87 Medical - DS: A/P - Patient/Caregiver Discharge Instructions Activity: increase activity as tolerated Diet: Cardiac Additional Instructions: Follow-up PCP in 5 days I recommend SNF physician to check CBC BMP UA as a posthospital follow-up Please schedule pulmonary function test as outpatient in 3 weeks Continue aggressive bowel regimen to prevent constipation Continue fall precautions All meals on chair sitting upright at 90 degrees to prevent aspiration Return to ER if worsening fever chills shortness of breath, diarrhea, bleeding Review risk and side effect profile of medications includingiltiazem. Side effect may include mild to severe reaction including rash, low blood pressure, slow heart rate and n rare cases even which can be prevented by close follow-up with PCP and monitoring for side effects Refrain from smoking and alcohol Continue diet and activity as advised Discussed importance of medication adherence Please review medication list with patient prior to discharge Please schedule follow-up with PCP/Providers prior to discharge and provide printouts Portions of this chart may have been created with [employer] voice recognition software. Occasional wrong-word or ?sound-like? substitutions may have occurred due to the inherent limitations of voice recognition software. Please read the chart carefully and recognize, using context, where the substitutions have occurred. CC- PCP Prescriptions: Diltiazem HCl [Diltiazem 24Hr Cd] 240 mg PO DAILY #30 cap.er.24h - Problem Maintenance (1) Atrial flutter with rapid ventricular response Status: Acute - Follow up Plan Follow up with: Janine Andujar, ANDREEA, DEBURR OPERATOR [Primary Care Provider] - Disposition: Home, Self-Care Prognosis: Good Rehab Potential: Fair I certify that the patient requires SNF services: No Overall status at discharge: patient is back to baseline Medical - DS: Qual - VTE Deep Vein Thrombosis/Pulmonary Embolism Present on Admission: No
[2017-07-05] MEDS: BUDESONIDE 0.5 MG/2 ML AMPUL.NEB NEB SCH (09:18)
[2017-07-05] MEDS: DOCUSATE SODIUM 100 MG CAPSULE PO SCH (09:21)
[2017-07-05] MEDS: MULTIVIT,THER IRON,CA,FA & MIN 1 TABLET PO SCH (09:22)
[2017-07-05] MEDS: HEPARIN 5,000 UNIT/ML VIAL SQ SCH (09:22)
[2017-07-05] MEDS ORDERED: NEUTRA PHOS 1 PACKET PO ONE (09:33)
[2017-07-05] MEDS ORDERED: IPRATROPIUM 2.5 ML AMPUL.NEB NEB PRN (11:25)
[2017-07-05] MEDS ORDERED: guaiFENesin/CODEINE 10 ML UDC PO PRN (11:25)
[2017-07-05] MEDS ORDERED: POTASSIUM CHLORIDE 20 MEQ PACKET PO PRN (11:25)
[2017-07-05] MEDS ORDERED: MAGNESIUM SULFATE 2 GM/50 ML BAG IV PRN (11:25)
[2017-07-05] MEDS ORDERED: traZODone HCL 50 MG TABLET PO PRN (11:25)
[2017-07-05] MEDS ORDERED: DILTIAZEM 125 MG in 0.9 % SODIUM CHLORIDE 100 ML IV PRN (11:25)
[2017-07-05] MEDS ORDERED: HYDROCODONE/APAP 7.5/325MG TABLET PO PRN (11:25)
[2017-07-05] MEDS ORDERED: ONDANSETRON 4 MG/2 ML VIAL IV PRN (11:25)
[2017-07-05] MEDS ORDERED: ACETAMINOPHEN 325 MG TABLET PO PRN (11:25)
[2017-07-05] MEDS ORDERED: DILTIAZEM 30 MG TABLET PO SCH (12:00)
[2017-07-05] MEDS ORDERED: 0.9 % SODIUM CHLORIDE 10 ML SYRINGE IV SCH (14:00)
[2017-07-05] MEDS ORDERED: ATORVASTATIN 20 MG TABLET PO SCH (21:00)
[2017-07-05] MEDS ORDERED: DOCUSATE SODIUM 100 MG CAPSULE PO SCH (21:00)
[2017-07-05] MEDS ORDERED: SENNOSIDES/DOCUSATE SODIUM 1 TAB TABLET PO SCH (21:00)
[2017-07-05] MEDS ORDERED: HEPARIN 5,000 UNIT/ML VIAL SQ SCH (21:00)
[2017-07-05] MEDS ORDERED: BUDESONIDE 0.5 MG/2 ML AMPUL.NEB NEB SCH (21:00)
[2017-07-06] MEDS ORDERED: FUROSEMIDE 20 MG TABLET PO SCH (09:00)
[2017-07-06] MEDS ORDERED: NEUTRA PHOS 1 PACKET PO SCH (09:00)
[2017-07-06] MEDS ORDERED: ASPIRIN 325 MG ENTERIC COATED TABLET PO SCH (09:00)
[2017-07-06] MEDS ORDERED: LOSARTAN 50 MG TABLET PO SCH (09:00)
[2017-07-06] MEDS ORDERED: MULTIVIT,THER IRON,CA,FA & MIN 1 TABLET PO SCH (09:00)
== END 2017-07-05 11:05 | disposition home or self-care (01) | DRG 309 ==
LOC: ED 12:03 → ICU 20:37
PROVIDERS: ADMIT Internal Medicine; ATTEND Internal Medicine

== ENCOUNTER 2019-03-29 09:56 | Inpatient (IN) ==
[2019-03-29] MEDS ORDERED: IPRATROPIUM/ALBUTEROL 3 ML AMPUL.NEB NEB ONE (10:30)
--- NOTE | 2019-03-29 10:41 | XRay Report ---
CLINICAL INFORMATION: Sob, cough COMPARISON: 10/27/2018 plain film and chest CT from 09/08/2017 FINDINGS: Heart size, mediastinum and pulmonary vessels are normal. A moderate patchy infiltrate has developed in the anterior segment of the left upper lobe with a small infiltrate in the right middle lobe. Moderate underlying centrilobular emphysema noted (confirmed on [address] No effusions. Mild old compression fractures midthoracic spine stable IMPRESSION: Moderate patchy left upper lobe and small right middle lobe infiltrates Moderate/severe centrilobular emphysema Interpreted and Authenticated by: Ambrocio Lemus 03/29/19
[2019-03-29] MEDS ORDERED: LEVOFLOXACIN 500 MG/100 ML BAG IV ONE (10:54)
[2019-03-29 12:14] LABS: Hematocrit 37.5 % (41.0-55.0); Hemoglobin 12.2 g/dL (13.5-16.5); Mean Cell Volume 92.5 fL (80.0-100.0); Mean Corpuscular HGB Conc 32.7 g/dL (31.0-36.0); Mean Platelet Volume 8.4 fL (7.4-10.4); Platelet Count 216 K/mcL (140-440); RBC 4.05 M/mcL (4.50-5.90); Red Cell Distribution Width 14.4 % (11.5-14.5); WBC 16.2 K/mcL (4.5-11.0)
[2019-03-29 12:29] LABS: ALT/SGPT 13 U/l (0-40); AST/SGOT 14 U/l (0-37); Albumin 3.4 gm/dL (3.2-5.2); Albumin/Globulin Ratio 1.1 (1.0-2.3); Alkaline Phosphatase 70 U/L (39-117); Bilirubin,Total 0.5 mg/dL (0.0-1.0); Blood Urea Nitrogen 50 mg/dl (8-23); Carbon Dioxide 24 mmol/L (22-30); Chloride 94 mmol/L (96-108); Globulin 3.2 gm/dL (2.2-3.7); Glomerular Filtration Rate 39; Glucose 137 mg/dL (70-105); Potassium 4.2 mmol/L (3.3-5.1); Sodium 134 mmol/L (133-145)
[2019-03-29 12:32] LABS: Lymphocytes % 6 % (15-49); Monocytes % (Manual) 9 % (1-12); Platelet Estimate NORMAL (NORMAL); Polychromasia RARE (NONE SEEN); RBC Morphology ABNORMAL (NORMAL); Segmented Neutrophils % 85 % (38-78)
--- NOTE | 2019-03-29 12:49 | Emergency Department Note ---
General Adult HPI - General Chief complaint: Cold/Flu Symptoms Stated complaint: Cold symptoms Time Seen by Provider: 03/29/19 10:29 Source: patient Mode of arrival: ambulatory Limitations: no limitations - History of Present Illness HPI Narrative: 83-year-old male presents with shortness of breath for the last month and a half. Progressively getting worse and not improving. He has a productive cough with greenish sputum that is occasionally blood-tinged. Shortness of breath is much worse with any exertion. Positive chills, unknown fever for the last couple of days. No nausea or vomiting. Has had a few episodes of diarrhea. No chest pain. Has had similar episodes in the past but states he is getting worse, not better. Associated symptoms: Reports: cough, diaphoresis, fever/chills, malaise, shortness of breath. Denies: confusion, chest pain, loss of appetite, nausea/vomiting, rash, seizure, syncope, weakness Treatments Prior to Arrival: none - Related Data Home Medications Medication Instructions Recorded Confirmed ascorbic acid (vitamin C) 250 mg 500 mg PO QDAY tab 01/21/18 02/28/19 tablet aspirin 325 mg tablet 325 mg PO QDAY 01/21/18 02/28/19 cholecalciferol (vitamin D3) 2,000 1,000 unit PO QDAY cap 07/06/18 02/28/19 unit capsule cyanocobalamin (vit B-12) 1,000 1,000 mcg PO QDAY 07/06/18 02/28/19 mcg tablet tramadol 50 mg tablet 50 mg PO TID PRN tab 10/03/18 02/28/19 ferrous sulfate 325 mg (65 mg 325 mg PO QDAY tab 02/28/19 02/28/19 iron) tablet furosemide 20 mg tablet 20 mg PO BID #180 tab 02/28/19 02/28/19 nitroglycerin 0.4 mg sublingual 0.4 mg SUBLINGUAL Q5-15M PRN 02/28/19 02/28/19 tablet Previous Rx's Medication Instructions Recorded atorvastatin 10 mg tablet 10 mg PO QDAY #90 tab 03/10/18 fluticasone fur. 100 mcg-umeclid 1 inh INHALATION QDAY #60 each 09/05/18 62.5 mcg-vilant 25 mcg inhalat.powder hydrocodone 7.5 mg-acetaminophen 1 tab PO Q6H PRN #30 tab 09/13/18 325 mg tablet diltiazem CD 240 mg 240 mg PO DAILY #90 cap 10/12/18 capsule,extended release 24 hr compressor, for nebulizer See Dose Instructions .ROUTE 10/27/18 .MEDSUPPLY #1 each Allergies Allergy/AdvReac Type Severity Reaction Status Date / Time No Known Drug Allergies Allergy Verified 03/29/19 09:56 Review of Systems All systems ED: reviewed and negative except as stated. Past Medical History - Past Medical History [facility] Narrative: Medical History (Last Reviewed 02/28/19 @ 09:52 by Mary Goyal MD) Osteoporosis (Acute) Chest pressure (Acute) Acute exacerbation of chronic obstructive airways disease (Acute) Mitral valve disorder (Chronic) C. difficile diarrhea (Resolved) Atrial fibrillation with rapid ventricular response (Resolved) Hypotension (Resolved) Cardiac arrhythmia (Chronic) Kidney disease, chronic, stage III (GFR 30-59 ml/min) (Chronic) Hematuria (Chronic) Bilateral carotid artery stenosis (Chronic) Heart valve disease (Chronic) Tobacco abuse (Resolved) SVT (supraventricular tachycardia) (Chronic) Pulmonary hypertension, secondary (Chronic) Mitral valve disorder (Chronic) Lung nodule (Chronic) Hypertension, essential (Chronic) Hyperlipidemia (Chronic) Hip pain (Chronic) Hearing loss (Chronic) Erectile dysfunction (Chronic) CAD (coronary artery disease) (Chronic) Colon polyp (Chronic) COPD (chronic obstructive pulmonary disease) (Chronic) Back pain (Chronic) Anemia (Chronic) Allergic rhinitis (Chronic) Emphysema lung (Resolved) Hemoptysis (Resolved) History of peptic ulcer disease (Resolved) Hx of angiography (Resolved) Hypercholesteremia (Resolved) Hyperkalemia (Resolved) Muscle strain of right upper extremity (Resolved) Pneumonia (Resolved) Pneumothorax after biopsy (Resolved) Screening for colon cancer (Resolved) Screening for prostate cancer (Resolved) Past Surgical History (Last Reviewed 02/28/19 @ 09:52 by Mary Goyal MD) History of gastrectomy (Chronic) Hx of appendectomy (Acute) History of endoscopy (Chronic 07/20/18) History of carotid endarterectomy (Resolved) History of dental surgery (Resolved) Hx of angioplasty (Resolved) Hx of appendectomy (Resolved) Hx of colonoscopy (Resolved) Hx of esophagogastroduodenoscopy (Resolved) Ulcer, surgical (Resolved) Medical history: Reports: COPD, CAD (coronary artery disease), hyperlipidemia, hypertension, peripheral artery disease, renal disease (Stage III), valvular heart disease (Aortic), other (Pulmonary hypertension, bilateral hearing loss, history of ulcers). Denies: CHF Surgical history ED: Reports: angioplasty/stent, appendectomy, carotid endarterectomy, other (Billroth II) - Social History smoking status: Former smoker (quit in september 2018) Alcohol use: Reports: Unknown Drug use: Reports: none Physical Exam Limitations: no limitations General appearance: alert Head: atraumatic, normocephalic, normal inspection Eye: Present: normal appearance. Absent: conjunctival injection ENT: normal exam, normal oropharynx, mucous membranes moist, TM's normal bilaterally, normal external ear exam Chest: Present: symmetric chest wall rise Respiratory: Present: rales/crackles (Crackles in the bases bilaterally and diminished throughout arrival. Speaks 2-3 words at this time.). Absent: respiratory distress Cardiovascular: Present: regular rate, normal heart sounds Extremities: Present: normal inspection. Absent: pedal edema Neurological: Present: alert, oriented X3 Psychiatric: Present: normal affect, normal mood Skin: Present: warm, dry, intact, normal color. Absent: rash, cyanosis, diaphoresis, erythema Course Course Narrative: At [address]255 I did speak with Dr. Oleary, hospitalist, who agrees to accept this patient. Vital Signs Temperature 97.7 F 03/29/19 09:56 Pulse Rate 75 03/29/19 09:56 Respiratory Rate 20 03/29/19 09:56 Blood Pressure 94/51 03/29/19 09:56 Pulse Oximetry (%) 91 03/29/19 09:56 Temperature 97.7 F 03/29/19 09:56 Pulse Rate 72 03/29/19 12:24 Respiratory Rate 20 03/29/19 09:56 Blood Pressure 123/63 03/29/19 12:15 Pulse Oximetry (%) 90 03/29/19 12:24 Medical Decision Making - Lab Data Lab results reviewed: Yes I reviewed the patient's lab results. Result diagrams: 03/29/19 10:22 03/29/19 10:22 Lab Results 03/29/19 03/29/19 03/29/19 Range/Units 10:22 10:22 10:22 WBC 16.2 H (4.5-11.0) K/mcL RBC 4.05 L (4.50-5.90) M/mcL Hgb 12.2 L (13.5-16.5) g/dL Hct 37.5 L (41.0-55.0) % MCV 92.5 (80.0-100.0) fL MCH 30.2 (26.0-34.0) pg MCHC 32.7 (31.0-36.0) g/dL RDW 14.4 (11.5-14.5) % Plt Count 216 (140-440) K/mcL MPV 8.4 (7.4-10.4) fL Total Counted 100 Seg Neutrophils % 85 H (38-78) % Band Neutrophils % Not Reportable Lymphocytes % 6 L (15-49) % Monocytes % (Manual) 9 (1-12) % Platelet Estimate Normal (NORMAL) RBC Morphology Abnormal (NORMAL) Polychromasia Rare A (NONE SEEN) D-Dimer (0.00-0.40) ug/ml VBG Lactic Acid 1.1 (0.5-2.0) mmol/L Sodium 134 (133-145) mmol/L Potassium 4.2 (3.3-5.1) mmol/L Chloride 94 L (96-108) mmol/L Carbon Dioxide 24 (22-30) mmol/L Anion Gap 16.0 (8-16) BUN 50 H (8-23) mg/dl Creatinine 1.6 H (0.7-1.2) mg/dl GFR Calculation 39 Glucose 137 H (70-105) mg/dL Calcium 9.0 (8.6-10.4) mg/dl Total Bilirubin 0.5 (0.0-1.0) mg/dL AST 14 (0-37) U/l ALT 13 (0-40) U/l Alkaline Phosphatase 70 (39-117) U/L NT-Pro-B Natriuret Pep 1620.0 H (0-450) pg/ml Total Protein 6.6 (5.9-8.4) gm/dL Albumin 3.4 (3.2-5.2) gm/dL Globulin 3.2 (2.2-3.7) gm/dL Albumin/Globulin Ratio 1.1 (1.0-2.3) Procalcitonin (<0.10) ng/mL 03/29/19 03/29/19 Range/Units 10:22 10:22 WBC (4.5-11.0) K/mcL RBC (4.50-5.90) M/mcL Hgb (13.5-16.5) g/dL Hct (41.0-55.0) % MCV (80.0-100.0) fL MCH (26.0-34.0) pg MCHC (31.0-36.0) g/dL RDW (11.5-14.5) % Plt Count (140-440) K/mcL MPV (7.4-10.4) fL Total Counted Seg Neutrophils % (38-78) % Band Neutrophils % Lymphocytes % (15-49) % Monocytes % (Manual) (1-12) % Platelet Estimate (NORMAL) RBC Morphology (NORMAL) Polychromasia (NONE SEEN) D-Dimer 0.96 H (0.00-0.40) ug/ml VBG Lactic Acid (0.5-2.0) mmol/L Sodium (133-145) mmol/L Potassium (3.3-5.1) mmol/L Chloride (96-108) mmol/L Carbon Dioxide (22-30) mmol/L Anion Gap (8-16) BUN (8-23) mg/dl Creatinine (0.7-1.2) mg/dl GFR Calculation Glucose (70-105) mg/dL Calcium (8.6-10.4) mg/dl Total Bilirubin (0.0-1.0) mg/dL AST (0-37) U/l ALT (0-40) U/l Alkaline Phosphatase (39-117) U/L NT-Pro-B Natriuret Pep (0-450) pg/ml Total Protein (5.9-8.4) gm/dL Albumin (3.2-5.2) gm/dL Globulin (2.2-3.7) gm/dL Albumin/Globulin Ratio (1.0-2.3) Procalcitonin 0.83 (<0.10) ng/mL - Radiology Data Radiology results reviewed: Yes I reviewed the patient's radiology results. Disposition Pt seen by RN INFUSION/PA only: Yes Clinical Impression: SOB (shortness of breath), Pneumonia Disposition: Xfer As Outpt/Obs ([facility]) Condition: Fair Referrals: Janine Andujar, ANDREEA, ORTHOTIC AIDE [Primary Care Provider] - Time of Disposition: 12:55
--- NOTE | 2019-03-29 14:05 | Internal Med History&Physical ---
Medical - H&P: HPI Patient information: Note initiated : 03/29/19 at 1:59 pm Service Date, if different from initiated Date: [] Patient: Fareed West 83 y/o M admitted on for Cold symptoms. Chief Complaint: [] History of present illness: Mr. West is a 83 year old M with history of COPD on home oxygen 2 L at [facility] presents to the emergency room with complaints of shortness of breath that has been going on for the last 1 month. Over the last few days the patient shortness of breath is progressively gotten worse. The patient notes that he ran out of his inhaler as few days ago. He also has cough with greenish- yellowish sputum. Shortness of breath is gotten worse that he is unable to do his activities of daily living. The patient denies any fever chills headache changes in vision difficulty in sw allowing denies any chest pain nausea vomiting did have some transient abdominal pain which is resolved now no diarrhea or constipation reported. No joint pains no leg swelling no blood in the stools or melena reported In the emergency room on presentation patient is afebrile heart rate 75 blood p ressure 123/63, saturating 91% on 2 L of oxygen. Labs show W his count of 16,000 hemoglobin 12.2 platelets 216 chemistries show a creatinine of 1.6 which is at baseline procalcitonin is 0.83 lactic acid 1.1 Chest x-ray shows emphysema right middle lobe as well as left upper lobe infiltrate Patient is being admitted to the hospital with a diagnosis of pneumonia and COPD exacerbation All systems: reviewed and no additional remarkable complaints except as stated (as per HPI) Medical - H&P: PM Medical history: Medical History (Last Reviewed 02/28/19 @ 09:52 by Mray Goyal MD) Osteoporosis (Acute) Chest pressure (Acute) Acute exacerbation of chronic obstructive airways disease (Acute) Mitral valve disorder (Chronic) C. difficile diarrhea (Resolved) Atrial fibrillation with rapid ventricular response (Resolved) Hypotension (Resolved) Cardiac arrhythmia (Chronic) Kidney disease, chronic, stage III (GFR 30-59 ml/min) (Chronic) Hematuria (Chronic) Bilateral carotid artery stenosis (Chronic) Heart valve disease (Chronic) Tobacco abuse (Resolved) SVT (supraventricular tachycardia) (Chronic) Pulmonary hypertension, secondary (Chronic) Mitral valve disorder (Chronic) Lung nodule (Chronic) Hypertension, essential (Chronic) Hyperlipidemia (Chronic) Hip pain (Chronic) Hearing loss (Chronic) Erectile dysfunction (Chronic) CAD (coronary artery disease) (Chronic) Colon polyp (Chronic) COPD (chronic obstructive pulmonary disease) (Chronic) Back pain (Chronic) Anemia (Chronic) Allergic rhinitis (Chronic) Emphysema lung (Resolved) Hemoptysis (Resolved) History of peptic ulcer disease (Resolved) Hx of angiography (Resolved) Hypercholesteremia (Resolved) Hyperkalemia (Resolved) Muscle strain of right upper extremity (Resolved) Pneumonia (Resolved) Pneumothorax after biopsy (Resolved) Screening for colon cancer (Resolved) Screening for prostate cancer (Resolved) Surgical history: Past Surgical History (Last Reviewed 02/28/19 @ 09:52 by Mary Goyal MD) History of gastrectomy (Chronic) Hx of appendectomy (Acute) History of endoscopy (Chronic 07/20/18) History of carotid endarterectomy (Resolved) History of dental surgery (Resolved) Hx of angioplasty (Resolved) Hx of appendectomy (Resolved) Hx of colonoscopy (Resolved) Hx of esophagogastroduodenoscopy (Resolved) Ulcer, surgical (Resolved) Pertinent family history: Family History (Last Reviewed 02/28/19 @ 09:52 by Mary Goyal MD) mother Family history of malignant neoplasm, Onset Age: 91 Family history of arthritis grandfather (maternal) Acute myocardial infarction son Osteoarthritis Malignant neoplasm of pancreas Medical - H&P: Meds Home Medications Medication Instructions Recorded Confirmed Type ascorbic acid (vitamin C) 250 mg 500 mg PO QDAY tab 01/21/18 03/29/19 History tablet aspirin 325 mg tablet 325 mg PO QDAY 01/21/18 03/29/19 History atorvastatin 10 mg tablet 10 mg PO QDAY #90 tab 03/10/18 03/29/19 Rx cholecalciferol (vitamin D3) 2,000 1,000 unit PO QDAY cap 07/06/18 03/29/19 History unit capsule cyanocobalamin (vit B-12) 1,000 1,000 mcg PO QDAY 07/06/18 03/29/19 History mcg tablet fluticasone fur. 100 mcg-umeclid 1 inh INHALATION QDAY #60 each 09/05/18 03/29/19 Rx 62.5 mcg-vilant 25 mcg inhalat.powder hydrocodone 7.5 mg-acetaminophen 1 tab PO Q6H PRN #30 tab 09/13/18 03/29/19 Rx 325 mg tablet tramadol 50 mg tablet 50 mg PO TIDP PRN tab 10/03/18 03/29/19 History diltiazem CD 240 mg 240 mg PO DAILY #90 cap 10/12/18 03/29/19 Rx capsule,extended release 24 hr compressor, for nebulizer See Dose Instructions .ROUTE 10/27/18 10/27/18 Rx .MEDSUPPLY #1 each ferrous sulfate 325 mg (65 mg 325 mg PO QDAY tab 02/28/19 03/29/19 History iron) tablet furosemide 20 mg tablet 20 mg PO BID #180 tab 02/28/19 03/29/19 History nitroglycerin 0.4 mg sublingual 0.4 mg SUBLINGUAL Q5-15M PRN 02/28/19 03/29/19 History tablet Allergies Allergy/AdvReac Type Severity Reaction Status Date / Time No Known Drug Allergies Allergy Verified 03/29/19 09:56 Medical - H&P: Exam - Constitutional Vitals: Temp Pulse Resp BP Pulse Ox 97.7 F 75 20 110/57 98 03/29/19 09:56 03/29/19 13:49 03/29/19 11:10 03/29/19 13:49 03/29/19 13:49 Exam: GENERAL: The patient is a well-developed, well-nourished in no apparent distress. Is alert and oriented x3. VITAL SIGNS: Reviewed and as noted elsewhere. HEENT: Head is normocephalic and atraumatic. Extraocular muscles are intact. Pupils are equal, round, and reactive to light. Nares appeared normal. Mouth appears any without lesions. Mucous membranes are dry NECK: Normal to inspection, Supple, No lymphadenopathy or thyromegaly. LUNGS: Air entry equal on both sides, chuck exp wheezing, no crackles or rhonchi noted. No accessory muscles of respiration HEART: Regular rate and rhythm normal, S1 and S2 heard, no Gallop, S3 or Rub Noted, No Gross murmur heard. ABDOMEN: Soft, nontender, and nondistended. Positive bowel sounds. No hepatosplenomegaly was noted. EXTREMITIES: No cyanosis, clubbing, rash, lesions or edema. NEUROLOGIC: Cranial nerves II through XII are grossly intact. Motor and Sensory System Grossly Intact PSYCHIATRIC: Normal affect, Normal Mood. Appropriate Behavior. SKIN: No ulceration or wounds noted, No jaundice, No rash noted. Medical - H&P: Reslt - Labs CBC & Chem 7: 03/29/19 10:22 03/29/19 10:22 Labs: Short CBC 03/29/19 Range/Units 10:22 WBC 16.2 H (4.5-11.0) K/mcL Hgb 12.2 L (13.5-16.5) g/dL Hct 37.5 L (41.0-55.0) % Plt Count 216 (140-440) K/mcL BMP 03/29/19 10:22 Sodium 134 Potassium 4.2 Chloride 94 L Carbon Dioxide 24 BUN 50 H Creatinine 1.6 H Glucose 137 H Calcium 9.0 Liver Function 03/29/19 Range/Units 10:22 Total Bilirubin 0.5 (0.0-1.0) mg/dL AST 14 (0-37) U/l ALT 13 (0-40) U/l Alkaline Phosphatase 70 (39-117) U/L Albumin 3.4 (3.2-5.2) gm/dL Medical - H&P: A/P - Narrative A/P Narrative: A/P Pneumonia,bacterial Acute exacerbation of COPD Chronic Respiratory failure, on 2 L oxygen Mitral valve disease Emphysema h/o aflutter/Afib CAD Plan Admit to med surg Steroids and abx for copd Levofloxacin for pna sputum cx , blood cx sent , viral resp panel resume home medications as appropriate not on anticoagulation? DVT heps q Diet regular DNR code status.
[2019-03-29] MEDS ORDERED: HYDROCODONE/APAP 7.5/325MG TABLET PO PRN (15:00)
[2019-03-29] MEDS ORDERED: NALOXONE HCL 0.4 MG/ML VIAL IV PRN (15:00)
[2019-03-29] MEDS ORDERED: ACETAMINOPHEN 325 MG TABLET PO PRN (15:00)
[2019-03-29] MEDS ORDERED: LEVOFLOXACIN 500 MG TABLET PO ONE (15:00)
[2019-03-29] MEDS ORDERED: ONDANSETRON 4 MG/2 ML VIAL IV PRN (15:00)
[2019-03-29] MEDS ORDERED: NITROGLYCERIN 0.4 MG TAB.SUBL SL PRN (15:00)
[2019-03-29] MEDS: IPRATROPIUM/ALBUTEROL 3 ML AMPUL.NEB NEB SCH ×3 (15:17→22:14)
[2019-03-29] MEDS: predniSONE 20 MG TABLET PO SCH (15:58)
[2019-03-29] MEDS: 0.9 % SODIUM CHLORIDE 10 ML SYRINGE IV SCH ×2 (16:00→20:44)
[2019-03-29] MEDS: FUROSEMIDE 20 MG TABLET PO SCH (20:43)
[2019-03-29] MEDS: HEPARIN 5,000 UNIT/ML VIAL SQ SCH (20:43)
--- NOTE | 2019-03-29 21:59 | Emergency Department Note ---
ED Note Addendum Note Addendum: I discussed this case with the mid-level provider and agree with the assessment and plan.
[2019-03-30] MEDS: IPRATROPIUM/ALBUTEROL 3 ML AMPUL.NEB NEB SCH ×6 (03:03→23:30)
[2019-03-30 06:01] LABS: Basophils # (Auto) 0 K/mcL (0.0-0.3); Basophils % (Auto) 0 % (0.0-2.0); Eosinophils # (Auto) 0 K/mcL (0.0-0.7); Eosinophils % (Auto) 0 % (0.0-7.0); Granulocytes % (Auto) 91.9 % (38.0-78.0); Hematocrit 35.7 % (41.0-55.0); Hemoglobin 11.6 g/dL (13.5-16.5); Lymphocytes # (Auto) 0.3 K/mcL (1.5-4.8); Lymphocytes % (Auto) 2.5 % (15.5-49.0); Mean Cell Volume 92.8 fL (80.0-100.0); Mean Corpuscular HGB Conc 32.6 g/dL (31.0-36.0); Mean Platelet Volume 7.9 fL (7.4-10.4); Monocytes # (Auto) 0.8 K/mcL (0.1-0.9); Monocytes % (Auto) 5.6 % (1.0-12.0); Platelet Count 201 K/mcL (140-440); RBC 3.85 M/mcL (4.50-5.90); Red Cell Distribution Width 14.8 % (11.5-14.5); WBC 13.4 K/mcL (4.5-11.0)
[2019-03-30 06:33] LABS: ALT/SGPT 10 U/l (0-40); AST/SGOT 11 U/l (0-37); Albumin/Globulin Ratio 0.9 (1.0-2.3); Alkaline Phosphatase 66 U/L (39-117); Bilirubin,Direct < 0.2 mg/dL (0.0-0.3); Bilirubin,Total 0.3 mg/dL (0.0-1.0); Blood Urea Nitrogen 46 mg/dl (8-23); Calcium 8.7 mg/dl (8.6-10.4); Carbon Dioxide 26 mmol/L (22-30); Chloride 95 mmol/L (96-108); Gamma Glutamyl Transpeptidase 10 U/L (8-61); Globulin 3.3 gm/dL (2.2-3.7); Glomerular Filtration Rate 39; Glucose 152 mg/dL (70-105); Lactate Dehydrogenase 130 U/L (94-250); Magnesium 2.3 mg/dL (1.6-2.5); Phosphorous 3.3 mg/dL (2.7-4.5); Potassium 3.9 mmol/L (3.3-5.1); Sodium 135 mmol/L (133-145); Triglycerides 54 mg/dl (<150); Uric Acid 9.8 mg/dL (2.5-8.0)
[2019-03-30] MEDS ORDERED: PANTOPRAZOLE 40 MG TABLET PO SCH (07:30)
[2019-03-30] MEDS ORDERED: ASPIRIN 325 MG ENTERIC COATED TABLET PO SCH (09:00)
[2019-03-30] MEDS ORDERED: DILTIAZEM 240 MG CAP.XL.24H PO SCH (09:00)
[2019-03-30] MEDS ORDERED: ATORVASTATIN 20 MG TABLET PO SCH (09:00)
[2019-03-30] MEDS ORDERED: FERROUS SULFATE 325 MG TABLET PO SCH (09:00)
[2019-03-30] MEDS ORDERED: FLUTICASONE 100 MCG INH SCH (09:00)
[2019-03-30] MEDS ORDERED: CYANOCOBALAMIN (VITAMIN B-12) 500 MCG TABLET PO SCH (09:00)
[2019-03-30] MEDS ORDERED: VILANTEROL INH SCH (09:00)
[2019-03-30] MEDS ORDERED: ASCORBIC ACID 500 MG TABLET PO SCH (09:00)
[2019-03-30] MEDS ORDERED: UMECLIDINIUM 62.5 MCG INH SCH (09:00)
[2019-03-30] MEDS: predniSONE 20 MG TABLET PO SCH (09:40)
[2019-03-30] MEDS: HEPARIN 5,000 UNIT/ML VIAL SQ SCH ×2 (09:40→21:04)
[2019-03-30] MEDS: 0.9 % SODIUM CHLORIDE 10 ML SYRINGE IV SCH ×3 (09:42→21:05)
[2019-03-30] MEDS: FUROSEMIDE 20 MG TABLET PO SCH ×2 (09:43→21:05)
--- NOTE | 2019-03-30 11:07 | Internal Med Progress Note ---
Medical - PN: Subj Patient information: Note initiated : 03/30/19 at 11:01 am Service Date, if different from initiated Date: [] Patient: Fareed West 83 y/o M admitted on 03/29/19 for Cold symptoms. Chief Complaint: [] Interval history: Mr. West is a 83 year old M with history of COPD on home oxygen 2 L [place] presents to the emergency room with complaints of shortness of breath that has been going on for the last 1 month. Over the last few days the patient shortness of breath is progressively gotten worse. The patient notes that he ran out of his inhaler as few days ago. He also has cough with greenish- yellowish sputum. Shortness of breath is gotten worse that he is unable to do his activities of daily living. The patient denies any fever chills headache changes in vision difficulty in swa llowing denies any chest pain nausea vomiting did have some transient abdominal pain which is resolved now no diarrhea or constipation reported. No joint pains no leg swelling no blood in the stools or melena reported In the emergency room on presentation patient is afebrile heart rate 75 blood pr essure 123/63, saturating 91% on 2 L of oxygen. Labs show W his count of 16,000 hemoglobin 12.2 platelets 216 chemistries show a creatinine of 1.6 which is at baseline procalcitonin is 0.83 lactic acid 1.1 Chest x-ray shows emphysema right middle lobe as well as left upper lobe infiltrate Patient is being admitted to the hospital with a diagnosis of pneumonia and COPD exacerbation 03/30 Patient seen examined Patient still short of breath on exertion, he is on 1.5 L of oxygen to keep his oxygen saturation more than 90%. He does feel better compared to yesterday WBC count is trending down his blood pressure was low, health a.m. blood pressure medications as well as his diuretics Patient has irregular rhythm intermittently, he does have a history of A. fib I reviewed with him he follows with Dr. Garcia takes aspirin, Pertinent ROS: Denies headache, dizziness Denies chest pain, palpitations Improving cough and shortness of breath Denies abdominal pain, nausea or vomiting. - Constitutional Vitals: Vital Signs Temp Pulse Resp BP Pulse Ox 97.9 F 84 20 95/62 96 03/30/19 07:42 03/30/19 07:26 03/30/19 07:42 03/30/19 07:42 03/30/19 07:42 Period Temp Pulse Resp BP Sys/Roche Pulse Ox Last 24 Hr 97.3 F-98.7 F 48-132 18-20 92-130/43-71 88-99 Intake and Output 03/29/19 03/30/19 03/30/19 21:59 05:59 13:59 Intake Total 240 500 120 Output Total 250 200 375 Balance -10 300 -255 Weight 113 lb Intake & Output: Intake & Output 03/29/19 03/30/19 03/30/19 21:59 05:59 13:59 Intake Total 240 500 120 Output Total 250 200 375 Balance -10 300 -255 Weight 113 lb Intake: Oral 240 500 120 Output: Void Amount 250 200 375 Other: Meal Dinner Breakfast Percent of Meal Consumed 100% 100% Feeding Ability Independent Independent Urine Appearance Clear Clear Urine Color Light Rubi Bright Yellow Exam: Constitutional; Afebrile, cooperative, alert, not in distress. Respiratory system: Air Entry equal on both sides, air entry is much improved compared to yesterday, very mild wheeze now. CVS- Rate rhythm regular, S1,S2 heard, no gallop, no rub. Abdomen- Soft nontender abdomen, no organomegaly, no tenderness, no guarding or rigidity, BASTER HAND- AOOx3, moving all extremities, no gross focal deficit noted. Medical - PN: Obj Da - Labs CBC & Chem 7: 03/30/19 04:47 03/30/19 04:47 Labs: Abnormal Lab Results 03/30/19 03/30/19 03/29/19 04:47 04:47 10:22 WBC 13.4 H RBC 3.85 L Hgb 11.6 L Hct 35.7 L RDW 14.8 H Gran % 91.9 H Lymph % (Auto) 2.5 L Gran # 12.3 H Lymph # (Auto) 0.3 L Seg Neutrophils % Lymphocytes % Polychromasia D-Dimer 0.96 H Chloride 95 L BUN 46 H Creatinine 1.6 H Glucose 152 H Uric Acid 9.8 H NT-Pro-B Natriuret Pep Albumin 3.0 L Albumin/Globulin Ratio 0.9 L 03/29/19 03/29/19 10:22 10:22 WBC 16.2 H RBC 4.05 L Hgb 12.2 L Hct 37.5 L RDW Gran % Lymph % (Auto) Gran # Lymph # (Auto) Seg Neutrophils % 85 H Lymphocytes % 6 L Polychromasia Rare A D-Dimer Chloride 94 L BUN 50 H Creatinine 1.6 H Glucose 137 H Uric Acid NT-Pro-B Natriuret Pep 1620.0 H Albumin Albumin/Globulin Ratio Meds: Medications Acetaminophen (Tylenol) 650 mg PO Q6HP PRN PRN Reason: PAIN/FEVER > 101 Hydrocodone Bitart/Acetaminophen ([place] 7.5/325mg) 1 tab PO Q6HP PRN PRN Reason: pain Albuterol/Ipratropium (Duoneb) 3 ml NEB Q4HRT [facility] Last Admin: 03/30/19 07:06 Dose: 3 ml Documented by: Ascorbic Acid (Vitamin C) 500 mg PO DAILY [facility] Last Admin: 03/30/19 09:40 Dose: 500 mg Documented by: Aspirin (Ecotrin) 325 mg PO DAILY [facility] Last Admin: 03/30/19 09:40 Dose: 325 mg Documented by: Atorvastatin Calcium (Lipitor) 10 mg PO QDAY [facility] Last Admin: 03/30/19 09:40 Dose: 10 mg Documented by: Cyanocobalamin (Vitamin B-12) 1,000 mcg PO DAILY [facility] Last Admin: 03/30/19 09:39 Dose: 1,000 mcg Documented by: Diltiazem HCl (Cardizem Cd) 240 mg PO DAILY [facility] Last Admin: 03/30/19 09:43 Dose: Not Given Documented by: Ferrous Sulfate (Ferrous Sulfate) 325 mg PO QDAY [facility] Last Admin: 03/30/19 09:40 Dose: 325 mg Documented by: Furosemide (Lasix) 20 mg PO BID [facility] Last Admin: 03/30/19 09:43 Dose: Not Given Documented by: Heparin Sodium (Porcine) (Heparin) 5,000 unit SQ Q12 [facility] Last Admin: 03/30/19 09:40 Dose: 5,000 unit Documented by: Levofloxacin (Levaquin) 750 mg PO Q48H [facility]; Protocol Naloxone HCl (Narcan) 0.1 mg IV Q2MIN PRN PRN Reason: Opiate Reversal Nitroglycerin (Nitrostat) 0.4 mg SL Q5MINP PRN PRN Reason: Chest Pain Ondansetron HCl (Zofran) 4 mg IV Q6HP PRN PRN Reason: Nausea And Vomiting Pantoprazole [facility] ([facility]tonix) [facility] Last Admin: 03/30/19 07:33 Dose: 40 mg Documented by: Fluticasone 100 Mcg- Umeclidinium 62.5 Mcg- Vilanterol 25 Mcg Inhaler 1 dose INH DAILY [facility]Pred[facility]one) [facility] Last Admin: 03/30/19 09:40 Dose: 40 mg Documented by: Sodium Chloride (Saline Flush) 10 ml IV Q8 [facility] Last Admin: 03/30/19 09:42 Dose: 10 ml Documented by: Medical - PN: A/P - Time Spent With Patient Total time spent is greater than 50% in coordination of care (as documented) at patient's floor/unit and/or counseling patient: - Narrative A/P Narrative: A/P Pneumonia,bacterial Acute exacerbation of COPD Chronic Respiratory failure, on 2 L oxygen Mitral valve disease Emphysema h/o aflutter/Afib CAD Plan Steroids and abx for copd, pt improving Levofloxacin for pna, improving, wbc trending down sputum cx , blood cx sent , viral resp panel is negative resume home medications as appropriate not on anticoagulation? on asa, follows with Dr garcia for his cardiac issues. DVT hep sq Diet regular DNR code status. Medical - PN: Qual - VTE Deep Vein Thrombosis/Pulmonary Embolism Present on Admission: No
[2019-03-30] MEDS ORDERED: DIGOXIN 500 MCG/2 ML AMPUL IV ONE ×2 (16:00→16:09)
[2019-03-30] MEDS ORDERED: METOPROLOL TARTRATE 5 MG/5 ML VIAL IV PRN (16:00)
--- NOTE | 2019-03-30 16:05 | Internal Med Progress Note ---
Medical - PN: Subj Patient information: Note initiated : 03/30/19 at 4:03 pm Service Date, if different from initiated Date: [] Patient: Fareed West 83 y/o M admitted on 03/29/19 for Cold symptoms. Chief Complaint: [] Interval history: Mr. West is a 83 year old M with history of COPD on home oxygen 2 L [place] presents to the emergency room with complaints of shortness of breath that has been going on for the last 1 month. Over the last few days the patient shortness of breath is progressively gotten worse. The patient notes that he ran out of his inhaler as few days ago. He also has cough with greenish- yellowish sputum. Shortness of breath is gotten worse that he is unable to do his activities of daily living. The patient denies any fever chills headache changes in vision difficulty in swa [place]lowing denies any chest pain nausea vomiting did have some transient abdominal pain which is resolved now no diarrhea or constipation reported. No joint pains no leg swelling no blood in the stools or melena reported In the emergency room on presentation patient is afebrile heart rate 75 blood pr essure 123/63, saturating 91% on 2 L of oxygen. Labs show W his count of 16,000 hemoglobin 12.2 platelets 216 chemistries show a creatinine of 1.6 which is at baseline procalcitonin is 0.83 lactic acid 1.1 Chest x-ray shows emphysema right middle lobe as well as left upper lobe infiltrate Patient is being admitted to the hospital with a diagnosis of pneumonia and COPD exacerbation 03/30 Patient seen examined Patient still short of breath on exertion, he is on 1.5 L of oxygen to keep his oxygen saturation more than 90%. He does feel better compared to yesterday WBC count is trending down his blood pressure was low, health a.m. blood pressure medications as well as his diuretics Patient has irregular rhythm intermittently, he does have a history of A. fib I reviewed with him he follows with Dr. John takes aspirin, 03/30 4 PM- patient heart rate in 180 with blood pressure down to mid 70s. Digoxin loaded 250 mcg/metoprolol IV as needed. Transfer to telemetry. Hold antihypertensives. Continue close monitoring hemodynamics. Inadequate response to digoxin with heart rate/RVR sustained around 180. Failed metoprolol dose with blood pressure dropping to 70s. Started on amiodarone l oad. Critical time spent over 45 minutes on management of A. fib RVR/hypotension - Constitutional Vitals: Vital Signs Temp Pulse Resp BP Pulse Ox 97.5 F 46 L 14 121/67 96 03/30/19 11:57 03/30/19 15:30 03/30/19 15:30 03/30/19 11:57 03/30/19 15:30 Period Temp Pulse Resp BP Sys/Roche Pulse Ox Last 24 Hr 97.5 F-98.7 F 46-97 14-20 92-130/43-68 95-98 Intake and Output 03/30/19 03/30/19 03/30/19 05:59 13:59 21:59 Intake Total 500 120 Output Total 200 375 300 Balance 300 -255 -300 Weight 113 lb Patient Weight 03/31/19 05:59 Weight 113 lb Intake & Output: Intake & Output 03/30/19 03/30/19 03/30/19 05:59 13:59 21:59 Intake Total 500 120 Output Total 200 375 300 Balance 300 -255 -300 Weight 113 lb Intake: Oral 500 120 Output: Void Amount 200 375 300 Other: Meal Breakfast Percent of Meal Consumed 100% Feeding Ability Independent Urine Appearance Clear Clear Clear Urine Color Light Rubi Bright Yellow Dark Yellow Urine Odor Normal General appearance: moderate distress (lightheaded), thin Exam: Short of breath Tachycardic around 180 Crackles bases Anxious Medical - PN: Obj Da - Labs CBC & Chem 7: 03/31/19 03:57 03/31/19 03:57 Labs: Abnormal Lab Results 03/30/19 03/30/19 03/29/19 04:47 04:47 10:22 WBC 13.4 H RBC 3.85 L Hgb 11.6 L Hct 35.7 L RDW 14.8 H Gran % 91.9 H Lymph % (Auto) 2.5 L Gran # 12.3 H Lymph # (Auto) 0.3 L Seg Neutrophils % Lymphocytes % Polychromasia D-Dimer 0.96 H Chloride 95 L BUN 46 H Creatinine 1.6 H Glucose 152 H Uric Acid 9.8 H NT-Pro-B Natriuret Pep Albumin 3.0 L Albumin/Globulin Ratio 0.9 L 05/22/19 05/22/19 10:22 10:22 WBC 16.2 H RBC 4.05 L Hgb 12.2 L Hct 37.5 L RDW Gran % Lymph % (Auto) Gran # Lymph # (Auto) Seg Neutrophils % 85 H Lymphocytes % 6 L Polychromasia Rare A D-Dimer Chloride 94 L BUN 50 H Creatinine 1.6 H Glucose 137 H Uric Acid NT-Pro-B Natriuret Pep 1620.0 H Albumin Albumin/Globulin Ratio Meds: Medications Acetaminophen (Tylenol) 650 mg PO Q6HP PRN PRN Reason: PAIN/FEVER > 101 Hydrocodone Bitart/Acetaminophen ([place] 7.5/325mg) 1 tab PO Q6HP PRN PRN Reason: pain Albuterol/Ipratropium (Duoneb) [address] [facility] Last Admin: 03/30/19 15:20 Dose: 3 ml Documented by: Ascorbic Acid (Vitamin C) [address] [facility] Last Admin: 03/30/19 09:40 Dose: 500 mg Documented by: Aspirin (Ecotrin) [address] [facility] Last Admin: 03/30/19 09:40 Dose: 325 mg Documented by: Atorvastatin Calcium (Lipitor) [address] [facility] Last Admin: 03/30/19 09:40 Dose: 10 mg Documented by: Cyanocobalamin (Vitamin B-12) 1,[address] [facility] Last Admin: 03/30/19 09:39 Dose: 1,000 mcg Documented by: Digoxin (Lanoxin) 250 mcg IV ONCE ONE Stop: 03/30/19 16:01 Diltiazem HCl (Cardizem Cd) [address] [facility] Last Admin: 03/30/19 09:43 Dose: Not Given Documented by: Ferrous Sulfate (Ferrous Sulfate) [address] [facility] Last Admin: 03/30/19 09:40 Dose: 325 mg Documented by: Furosemide (Lasix) [address] [facility] Last Admin: 03/30/19 09:43 Dose: Not Given Documented by: Heparin Sodium (Porcine) (Heparin) 5,[address] [facility] Last Admin: 03/30/19 09:40 Dose: 5,000 unit Documented by: Levofloxacin (Levaquin) [address] [facility]; Protocol Metoprolol Tartrate (Lopressor) 5 mg IV Q5M PRN PRN Reason: heart rate> 130 Stop: 03/30/19 16:11 Naloxone HCl (Narcan) 0.1 mg IV Q2MIN PRN PRN Reason: Opiate Reversal Nitroglycerin (Nitrostat) 0.4 mg SL Q5MINP PRN PRN Reason: Chest Pain Ondansetron HCl (Zofran) 4 mg IV Q6HP PRN PRN Reason: Nausea And Vomiting Pantoprazole Sodium (Protonix) 40 mg PO [facility] Last Admin: 03/30/19 07:33 Dose: 40 mg Documented by: Fluticasone 100 Mcg- Umeclidinium 62.5 Mcg- Vilanterol 25 Mcg Inhaler [address] [facility] Prednisone (Prednisone) 40 mg PO [facility] Last Admin: 03/30/19 09:40 Dose: 40 mg Documented by: Sodium Chloride (Saline Flush) [address] [facility] Last Admin: 03/30/19 09:42 Dose: 10 ml Documented by: Medical - PN: A/P - Time Spent With Patient Total time spent is greater than 50% in coordination of care (as documented) at patient's floor/unit and/or counseling patient: 25 - 35 minutes (critical care time) (1) Atrial flutter with rapid ventricular response Status: Acute Assessment and plan: * A. fib RVR-inadequately response to IV metoprolol/digoxin load. Started on a miodarone in light of hypotension. * Hypotension-hold antihypertensive/start crystalloid challenge. Likely secondary to RVR-related low cardiac output Plan * Transfer to ICU * Crystalloid bolus * Amiodarone load Current Visit: No Medical - PN: Qual - VTE Deep Vein Thrombosis/Pulmonary Embolism Present on Admission: No
[2019-03-30] MEDS ORDERED: 0.9 % SODIUM CHLORIDE 500 ML IV ONE (16:48)
[2019-03-30] MEDS ORDERED: NALOXONE HCL 0.4 MG/ML VIAL IV PRN (16:49)
[2019-03-30] MEDS ORDERED: NITROGLYCERIN 0.4 MG TAB.SUBL SL PRN (16:49)
[2019-03-30] MEDS ORDERED: ONDANSETRON 4 MG/2 ML VIAL IV PRN (16:49)
[2019-03-30] MEDS ORDERED: ACETAMINOPHEN 325 MG TABLET PO PRN (16:49)
[2019-03-30] MEDS: HYDROCODONE/APAP 7.5/325MG TABLET PO PRN (19:24)
[2019-03-30] MEDS ORDERED: METOPROLOL TARTRATE 5 MG/5 ML VIAL IV ONE ×2 (22:29→22:48)
[2019-03-30] MEDS: METOPROLOL TARTRATE 5 MG/5 ML VIAL IV SCH ×2 (22:35→23:19)
[2019-03-30] MEDS ORDERED: AMIODARONE 150 MG/3 ML VIAL IV ONE ×2 (22:58→23:05)
[2019-03-30] MEDS ORDERED: AMIODARONE 360 MG/200 ML BAG IV ONE (23:00)
[2019-03-30] MEDS ORDERED: AMIODARONE 150 MG in DEXTROSE 5% IN WATER 50 ML IV ONE (23:10)
[2019-03-30] MEDS ORDERED: AMIODARONE 360 MG in PREMIX 1 BAG IV SCH (23:45)
[2019-03-31] MEDS: IPRATROPIUM/ALBUTEROL 3 ML AMPUL.NEB NEB SCH ×2 (04:19→07:32)
[2019-03-31] MEDS ORDERED: AMIODARONE 360 MG/200 ML BAG IV ONE (05:23)
[2019-03-31] MEDS ORDERED: AMIODARONE 360 MG in PREMIX 1 BAG IV SCH (05:30)
[2019-03-31] MEDS: 0.9 % SODIUM CHLORIDE 10 ML SYRINGE IV SCH ×3 (05:40→21:00)
[2019-03-31 06:56] LABS: Basophils # (Auto) 0 K/mcL (0.0-0.3); Basophils % (Auto) 0 % (0.0-2.0); Eosinophils # (Auto) 0 K/mcL (0.0-0.7); Eosinophils % (Auto) 0.4 % (0.0-7.0); Granulocytes % (Auto) 89.1 % (38.0-78.0); Hematocrit 35.4 % (41.0-55.0); Hemoglobin 11.3 g/dL (13.5-16.5); Lymphocytes # (Auto) 0.3 K/mcL (1.5-4.8); Lymphocytes % (Auto) 3.5 % (15.5-49.0); Mean Cell Volume 93.3 fL (80.0-100.0); Mean Platelet Volume 7.7 fL (7.4-10.4); Monocytes # (Auto) 0.7 K/mcL (0.1-0.9); Platelet Count 218 K/mcL (140-440); RBC 3.79 M/mcL (4.50-5.90); Red Cell Distribution Width 14.6 % (11.5-14.5); WBC 9.7 K/mcL (4.5-11.0)
[2019-03-31 07:11] LABS: ALT/SGPT 19 U/l (0-40); AST/SGOT 21 U/l (0-37); Albumin 2.6 gm/dL (3.2-5.2); Albumin/Globulin Ratio 0.8 (1.0-2.3); Alkaline Phosphatase 66 U/L (39-117); Bilirubin,Direct < 0.2 mg/dL (0.0-0.3); Bilirubin,Total 0.2 mg/dL (0.0-1.0); Blood Urea Nitrogen 51 mg/dl (8-23); Calcium 8.4 mg/dl (8.6-10.4); Carbon Dioxide 24 mmol/L (22-30); Chloride 98 mmol/L (96-108); Gamma Glutamyl Transpeptidase 13 U/L (8-61); Globulin 3.4 gm/dL (2.2-3.7); Glomerular Filtration Rate 42; Glucose 132 mg/dL (70-105); Lactate Dehydrogenase 192 U/L (94-250); Magnesium 2.7 mg/dL (1.6-2.5); Sodium 137 mmol/L (133-145); Triglycerides 75 mg/dl (<150); Uric Acid 9.6 mg/dL (2.5-8.0)
[2019-03-31] MEDS: PANTOPRAZOLE 40 MG TABLET PO SCH (07:38)
[2019-03-31] MEDS: CYANOCOBALAMIN (VITAMIN B-12) 500 MCG TABLET PO SCH (08:36)
[2019-03-31] MEDS: predniSONE 20 MG TABLET PO SCH (08:37)
[2019-03-31] MEDS: ASPIRIN 325 MG ENTERIC COATED TABLET PO SCH (08:37)
[2019-03-31] MEDS: FUROSEMIDE 20 MG TABLET PO SCH ×2 (08:38→21:00)
[2019-03-31] MEDS: FERROUS SULFATE 325 MG TABLET PO SCH (08:38)
[2019-03-31] MEDS: ASCORBIC ACID 500 MG TABLET PO SCH (08:39)
[2019-03-31] MEDS: ATORVASTATIN 20 MG TABLET PO SCH (08:39)
[2019-03-31] MEDS: HEPARIN 5,000 UNIT/ML VIAL SQ SCH ×2 (08:40→21:00)
[2019-03-31] MEDS: UMECLIDINIUM 62.5 MCG INH SCH ×2 (08:41→11:11)
[2019-03-31] MEDS: VILANTEROL INH SCH ×2 (08:41→11:11)
[2019-03-31] MEDS: FLUTICASONE 100 MCG INH SCH ×2 (08:41→11:11)
[2019-03-31] MEDS: LEVOFLOXACIN 750 MG TABLET PO SCH (08:43)
[2019-03-31] MEDS ORDERED: LEVOFLOXACIN 750 MG TABLET PO SCH (09:00)
[2019-03-31] MEDS ORDERED: IPRATROPIUM/ALBUTEROL 3 ML AMPUL.NEB NEB PRN (09:05)
[2019-03-31] MEDS: DILTIAZEM 240 MG CAP.XL.24H PO SCH (09:45)
--- NOTE | 2019-03-31 11:20 | Internal Med Progress Note ---
Medical - PN: Subj Patient information: Note initiated : 03/31/19 at 11:17 am Service Date, if different from initiated Date: [] Patient: Fareed West 83 y/o M admitted on 03/29/19 for Cold symptoms. Chief Complaint: [] Interval history: Mr. West is a 83 year old M with history of COPD on home oxygen 2 L at [facility] presents to the emergency room with complaints of shortness of breath that has been going on for the last 1 month. Over the last few days the patient shortness of breath is progressively gotten worse. The patient notes that he ran out of his inhaler as few days ago. He also has cough with greenish- yellowish sputum. Shortness of breath is gotten worse that he is unable to do his activities of daily living. The patient denies any fever chills headache changes in vision difficulty in sw allowing denies any chest pain nausea vomiting did have some transient abdominal pain which is resolved now no diarrhea or constipation reported. No joint pains no leg swelling no blood in the stools or melena reported In the emergency room on presentation patient is afebrile heart rate 75 blood p ressure 123/63, saturating 91% on 2 L of oxygen. Labs show W his count of 16,000 hemoglobin 12.2 platelets 216 chemistries show a creatinine of 1.6 which is at baseline procalcitonin is 0.83 lactic acid 1.1 Chest x-ray shows emphysema right middle lobe as well as left upper lobe infiltrate Patient is being admitted to the hospital with a diagnosis of pneumonia and COPD exacerbation 03/30 Patient seen examined Patient still short of breath on exertion, he is on 1.5 L of oxygen to keep his oxygen saturation more than 90%. He does feel better compared to yesterday WBC count is trending down his blood pressure was low, health a.m. blood pressure medications as well as his diuretics Patient has irregular rhythm intermittently, he does have a history of A. fib I reviewed with him he follows with Dr. John takes aspirin, 03/30 4 PM- patient heart rate in 180 with blood pressure down to mid 70s. Digoxin loaded 250 mcg/metoprolol IV as needed. Transfer to telemetry. Hold antihypertensives. Continue close monitoring hemodynamics. Inadequate response to digoxin with heart rate/RVR sustained around 180. Failed metoprolol dose with blood pressure dropping to 70s. Started on amiodarone load. 03/31-patient doing well. Currently in sinus after amiodarone load. Blood pressures 140. Feeling a lot better. Stable hemodynamics. Continue telemetry monitoring. Restart diltiazem. White count down from 16.2-9.7. On antibiotic coverage/steroids for pneumonia/COPD flare. Currently on 2 L oxygen. - Constitutional Vitals: Vital Signs Temp Pulse Resp BP Pulse Ox 98.4 F 90 20 140/55 93 03/31/19 08:01 03/31/19 07:35 03/31/19 08:01 03/31/19 09:32 03/31/19 08:32 Period Temp Pulse Resp BP Sys/Roche Pulse Ox Last 24 Hr 97.5 F-99.6 F 42-188 14-20 79-174/53-95 92-100 Intake and Output 03/30/19 03/31/19 03/31/19 21:59 05:59 13:59 Intake Total 540 245 60 Output Total 300 250 Balance 240 -5 60 Weight 118 lb 12.8 oz Intake & Output: Intake & Output 03/30/19 03/31/19 03/31/19 21:59 05:59 13:59 Intake Total 540 245 60 Output Total 300 250 Balance 240 -5 60 Weight 118 lb 12.8 oz Intake: IV 245 60 Cordarone 150 mg In Dextrose 5% 53 in Water 50 ml @ 300 mls/hr IV ONCE ONE Rx#:[id number] Nexterone 360 mg In Premix 1 192 60 Bag @ 0.5 MG/MIN 16.67 mls/hr IV .Q12H [facility] Rx#:[id number] Oral 540 Output: Void Amount 300 250 Other: Meal Dinner Percent of Meal Consumed 50% Feeding Ability Independent Urine Appearance Clear Urine Color Dark Yellow Urine Odor Normal Stool Size Small Stool Color Brown Stool Consistency Formed # Bowel Movements 1 General appearance: no acute distress Exam: Alert oriented sinus rhythm No anxiety Nonlabored breathing Medical - PN: Obj Da - Labs CBC & Chem 7: 03/31/19 03:57 03/31/19 03:57 Labs: Abnormal Lab Results 03/31/19 03/31/19 03/30/19 03:57 03:57 04:47 WBC RBC 3.79 L Hgb 11.3 L Hct 35.4 L RDW 14.6 H Gran % 89.1 H Lymph % (Auto) 3.5 L Gran # 8.6 H Lymph # (Auto) 0.3 L Seg Neutrophils % Lymphocytes % Polychromasia D-Dimer Chloride 95 L BUN 51 H 46 H Creatinine 1.5 H 1.6 H Glucose 132 H 152 H Uric Acid 9.6 H 9.8 H Calcium 8.4 L Magnesium 2.7 H NT-Pro-B Natriuret Pep Albumin 2.6 L 3.0 L Albumin/Globulin Ratio 0.8 L 0.9 L 03/30/19 03/29/19 03/29/19 04:47 10:22 10:22 WBC 13.4 H RBC 3.85 L Hgb 11.6 L Hct 35.7 L RDW 14.8 H Gran % 91.9 H Lymph % (Auto) 2.5 L Gran # 12.3 H Lymph # (Auto) 0.3 L Seg Neutrophils % Lymphocytes % Polychromasia D-Dimer 0.96 H Chloride 94 L BUN 50 H Creatinine 1.6 H Glucose 137 H Uric Acid Calcium Magnesium NT-Pro-B Natriuret Pep 1620.0 H Albumin Albumin/Globulin Ratio 03/29/19 10:22 WBC 16.2 H RBC 4.05 L Hgb 12.2 L Hct 37.5 L RDW Gran % Lymph % (Auto) Gran # Lymph # (Auto) Seg Neutrophils % 85 H Lymphocytes % 6 L Polychromasia Rare A D-Dimer Chloride BUN Creatinine Glucose Uric Acid Calcium Magnesium NT-Pro-B Natriuret Pep Albumin Albumin/Globulin Ratio Meds: Medications Acetaminophen (Tylenol) 650 mg PO Q6HP PRN PRN Reason: PAIN/FEVER > 101 Hydrocodone Bitart/Acetaminophen ([place] 7.5/325mg) 1 tab PO Q6HP PRN PRN Reason: pain Last Admin: 03/30/19 19:24 Dose: 1 tab Documented by: Albuterol/Ipratropium (Duoneb) 3 ml NEB Q4HP PRN PRN Reason: Shortness Of Breath Or Wheezing Ascorbic Acid (Vitamin C) 500 mg PO DAILY [facility] Last Admin: 03/31/19 08:39 Dose: 500 mg Documented by: Aspirin (Ecotrin) 325 mg PO DAILY [facility] Last Admin: 03/31/19 08:37 Dose: 325 mg Documented by: Atorvastatin Calcium (Lipitor) 10 mg PO QDAY [facility] Last Admin: 03/31/19 08:39 Dose: 10 mg Documented by: Cyanocobalamin (Vitamin B-12) 1,000 mcg PO DAILY [facility] Last Admin: 03/31/19 08:36 Dose: 1,000 mcg Documented by: Diltiazem HCl (Cardizem Cd) 240 mg PO DAILY [facility] Last Admin: 03/31/19 09:45 Dose: 240 mg Documented by: Ferrous Sulfate (Ferrous Sulfate) 325 mg PO QDAY [facility] Last Admin: 03/31/19 08:38 Dose: 325 mg Documented by: Furosemide (Lasix) 20 mg PO BID [facility] Last Admin: 03/31/19 08:38 Dose: 20 mg Documented by: Heparin Sodium (Porcine) (Heparin) 5,000 unit SQ Q12 [facility] Last Admin: 03/31/19 08:40 Dose: 5,000 unit Documented by: Levofloxacin (Levaquin) 750 mg PO Q48H [facility]; Protocol Last Admin: 03/31/19 08:43 Dose: 750 mg Documented by: Naloxone HCl (Narcan) 0.1 mg IV Q2MIN PRN PRN Reason: Opiate Reversal Nitroglycerin (Nitrostat) 0.4 mg SL Q5MINP PRN PRN Reason: Chest Pain Ondansetron HCl (Zofran) 4 mg IV Q6HP PRN PRN Reason: Nausea And Vomiting [facility] Admin: 03/31/19 07:38 Dose: 40 mg Documented by: Fluticasone 100 Mcg- Umeclidinium 62.5 Mcg- Vilanterol 25 Mcg Inhaler 1 dose INH DAILY [facility] Last Admin: 03/31/19 11:11 Dose: 1 dose Documented by: Prednisone (Prednisone) [address] [facility] Last Admin: 03/31/19 08:37 Dose: 40 mg Documented by: Sodium Chloride (Saline Flush) 10 ml IV Q8 [facility] Last Admin: 03/31/19 05:40 Dose: Not Given Documented by: Medical - PN: A/P - Time Spent With Patient Total time spent is greater than 50% in coordination of care (as documented) at patient's floor/unit and/or counseling patient: 25 - 35 minutes (1) Atrial flutter with rapid ventricular response Status: Acute Assessment and plan: * Paroxysmal A. fib RVR-converted to sinus post amiodarone load. Continue diltiazem, DC amiodarone. Continue aspirin for CVA prophylaxis * Hypotension-hold antihypertensive/start crystalloid challenge. Likely secondary to RVR-related low cardiac output * Bacterial pneumonia clinically improving on Levaquin * COPD exacerbation continue bronchodilators/pulmonary toilet/steroids, sputum cultures negative so far * Hypoxic respiratory failure secondary to above continue oxygen/probably tolerate * DNR * Prophylaxis heparin Plan * Continue telemetry monitoring * DC amiodarone * Continue antibiotic coverage/pulmonary toilet and steroids * PT OT/nutrition support * Discharge planning Current Visit: No Medical - PN: Qual - VTE Deep Vein Thrombosis/Pulmonary Embolism Present on Admission: No
[2019-04-01] MEDS: 0.9 % SODIUM CHLORIDE 10 ML SYRINGE IV SCH ×3 (05:50→21:21)
[2019-04-01 05:52] LABS: Basophils # (Auto) 0 K/mcL (0.0-0.3); Basophils % (Auto) 0.1 % (0.0-2.0); Eosinophils # (Auto) 0 K/mcL (0.0-0.7); Eosinophils % (Auto) 0 % (0.0-7.0); Granulocytes % (Auto) 90.2 % (38.0-78.0); Hematocrit 35.6 % (41.0-55.0); Hemoglobin 11.6 g/dL (13.5-16.5); Lymphocytes # (Auto) 0.6 K/mcL (1.5-4.8); Lymphocytes % (Auto) 5.2 % (15.5-49.0); Mean Cell Volume 92.8 fL (80.0-100.0); Mean Corpuscular HGB Conc 32.5 g/dL (31.0-36.0); Mean Platelet Volume 7.7 fL (7.4-10.4); Monocytes # (Auto) 0.5 K/mcL (0.1-0.9); Monocytes % (Auto) 4.5 % (1.0-12.0); Platelet Count 264 K/mcL (140-440); RBC 3.83 M/mcL (4.50-5.90); Red Cell Distribution Width 14.6 % (11.5-14.5); WBC 10.6 K/mcL (4.5-11.0)
[2019-04-01 06:08] LABS: ALT/SGPT 21 U/l (0-40); AST/SGOT 19 U/l (0-37); Albumin 2.9 gm/dL (3.2-5.2); Albumin/Globulin Ratio 0.9 (1.0-2.3); Alkaline Phosphatase 64 U/L (39-117); Bilirubin,Direct < 0.2 mg/dL (0.0-0.3); Bilirubin,Total 0.2 mg/dL (0.0-1.0); Blood Urea Nitrogen 51 mg/dl (8-23); Calcium 8.7 mg/dl (8.6-10.4); Carbon Dioxide 26 mmol/L (22-30); Chloride 98 mmol/L (96-108); Gamma Glutamyl Transpeptidase 16 U/L (8-61); Globulin 3.3 gm/dL (2.2-3.7); Glomerular Filtration Rate 46; Glucose 111 mg/dL (70-105); Lactate Dehydrogenase 171 U/L (94-250); Magnesium 2.6 mg/dL (1.6-2.5); Phosphorous 2.7 mg/dL (2.7-4.5); Potassium 4.5 mmol/L (3.3-5.1); Sodium 137 mmol/L (133-145); Triglycerides 88 mg/dl (<150); Uric Acid 9.6 mg/dL (2.5-8.0)
[2019-04-01] MEDS: DILTIAZEM 240 MG CAP.XL.24H PO SCH (09:09)
[2019-04-01] MEDS: ASCORBIC ACID 500 MG TABLET PO SCH (09:09)
[2019-04-01] MEDS: ASPIRIN 325 MG ENTERIC COATED TABLET PO SCH (09:10)
[2019-04-01] MEDS: ATORVASTATIN 20 MG TABLET PO SCH (09:10)
[2019-04-01] MEDS: CYANOCOBALAMIN (VITAMIN B-12) 500 MCG TABLET PO SCH (09:10)
[2019-04-01] MEDS: PANTOPRAZOLE 40 MG TABLET PO SCH (09:10)
[2019-04-01] MEDS: FERROUS SULFATE 325 MG TABLET PO SCH (09:10)
[2019-04-01] MEDS: FUROSEMIDE 20 MG TABLET PO SCH ×2 (09:11→21:21)
[2019-04-01] MEDS: predniSONE 20 MG TABLET PO SCH (09:11)
[2019-04-01] MEDS: HEPARIN 5,000 UNIT/ML VIAL SQ SCH ×2 (09:11→21:21)
[2019-04-01] MEDS: VILANTEROL INH SCH (09:25)
[2019-04-01] MEDS: FLUTICASONE 100 MCG INH SCH (09:25)
[2019-04-01] MEDS: UMECLIDINIUM 62.5 MCG INH SCH (09:25)
--- NOTE | 2019-04-01 10:17 | Internal Med Progress Note ---
Medical - PN: Subj Patient information: Note initiated : 04/01/19 at 10:15 am Service Date, if different from initiated Date: [] Patient: aFreed West 83 y/o M admitted on 03/29/19 for Cold symptoms. Chief Complaint: [] Interval history: Mr. West is a 83 year old M with history of COPD on home oxygen 2 L at [facility] presents to the emergency room with complaints of shortness of breath that has been going on for the last 1 month. Over the last few days the patient shortness of breath is progressively gotten worse. The patient notes that he ran out of his inhaler as few days ago. He also has cough with greenish- yellowish sputum. Shortness of breath is gotten worse that he is unable to do his activities of daily living. The patient denies any fever chills headache changes in vision difficulty in sw allowing denies any chest pain nausea vomiting did have some transient abdominal pain which is resolved now no diarrhea or constipation reported. No joint pains no leg swelling no blood in the stools or melena reported In the emergency room on presentation patient is afebrile heart rate 75 blood p ressure 123/63, saturating 91% on 2 L of oxygen. Labs show W his count of 16,000 hemoglobin 12.2 platelets 216 chemistries show a creatinine of 1.6 which is at baseline procalcitonin is 0.83 lactic acid 1.1 Chest x-ray shows emphysema right middle lobe as well as left upper lobe infiltrate Patient is being admitted to the hospital with a diagnosis of pneumonia and COPD exacerbation 03/30 Patient seen examined Patient still short of breath on exertion, he is on 1.5 L of oxygen to keep his oxygen saturation more than 90%. He does feel better compared to yesterday WBC count is trending down his blood pressure was low, health a.m. blood pressure medications as well as his diuretics Patient has irregular rhythm intermittently, he does have a history of A. fib I reviewed with him he follows with Dr. John takes aspirin, 03/30 4 PM- patient heart rate in 180 with blood pressure down to mid 70s. Digoxin loaded 250 mcg/metoprolol IV as needed. Transfer to telemetry. Hold antihypertensives. Continue close monitoring hemodynamics. Inadequate response to digoxin with heart rate/RVR sustained around 180. Failed metoprolol dose with blood pressure dropping to 70s. Started on amiodarone load. 03/31-patient doing well. Currently in sinus after amiodarone load. Blood pressures 140. Feeling a lot better. Stable hemodynamics. Continue telemetry monitoring. Restart diltiazem. White count down from 16.2-9.7. On antibiotic coverage/steroids for pneumonia/COPD flare. Currently on 2 L oxygen. 04/01- patient doing well. Currently in sinus rhythm. Off oxygen. One episode of RVR around early this morning. Short lived. White count down to 10.6 and 16.2. Hypotension resolved. Clinical improvement pneumonia noted. Possible discharge in 24 hours with no further episodes of RVR. We will downgrade to medical floor later this evening if remains rate controlled. No overnight fever or chills. Stable labs, creatinine 1.4. - Constitutional Vitals: Vital Signs Temp Pulse Resp BP Pulse Ox 98.3 F 72 20 154/71 92 04/01/19 07:36 03/31/19 23:19 04/01/19 07:36 04/01/19 07:36 04/01/19 07:36 Period Temp Pulse Resp BP Sys/Roche Pulse Ox Last 24 Hr 97.4 F-99.3 F 72 16-20 119-154/57-106 92-98 Intake and Output 03/31/19 04/01/19 04/01/19 21:59 05:59 13:59 Intake Total 480 650 240 Output Total 240 575 125 Balance 240 75 115 Weight 121 lb 4.8 oz Intake & Output: Intake & Output 03/31/19 04/01/19 04/01/19 21:59 05:59 13:59 Intake Total 480 650 240 Output Total 240 575 125 Balance 240 75 115 Weight 121 lb 4.8 oz Intake: Oral 480 650 240 Output: Void Amount 240 575 125 # of times incontinent of urine 0 Other: Meal Dinner Breakfast Percent of Meal Consumed 100% 90 Feeding Ability Independent Independent Urine Appearance Clear Clear Urine Color Dark Yellow Bright Yellow Urine Odor Normal # Voids 0 General appearance: no acute distress Exam: Alert oriented Nonlabored breathing, minimal rhonchi Sinus rhythm on telemetry Ambulating Anxiety Medical - PN: Obj Da - Labs CBC & Chem 7: 04/01/19 03:35 04/01/19 03:35 Labs: Abnormal Lab Results 04/01/19 04/01/19 03/31/19 03:35 03:35 03:57 WBC RBC 3.83 L Hgb 11.6 L Hct 35.6 L RDW 14.6 H Gran % 90.2 H Lymph % (Auto) 5.2 L Gran # 9.5 H Lymph # (Auto) 0.6 L Seg Neutrophils % Lymphocytes % Polychromasia D-Dimer Chloride BUN 51 H 51 H Creatinine 1.4 H 1.5 H Glucose 111 H 132 H Uric Acid 9.6 H 9.6 H Calcium 8.4 L Magnesium 2.6 H 2.7 H NT-Pro-B Natriuret Pep Albumin 2.9 L 2.6 L Albumin/Globulin Ratio 0.9 L 0.8 L 03/31/19 03/30/19 03/30/19 03:57 04:47 04:47 WBC 13.4 H RBC 3.79 L 3.85 L Hgb 11.3 L 11.6 L Hct 35.4 L 35.7 L RDW 14.6 H 14.8 H Gran % 89.1 H 91.9 H Lymph % (Auto) 3.5 L 2.5 L Gran # 8.6 H 12.3 H Lymph # (Auto) 0.3 L 0.3 L Seg Neutrophils % Lymphocytes % Polychromasia D-Dimer Chloride 95 L BUN 46 H Creatinine 1.6 H Glucose 152 H Uric Acid 9.8 H Calcium Magnesium NT-Pro-B Natriuret Pep Albumin 3.0 L Albumin/Globulin Ratio 0.9 L 03/29/19 03/29/19 03/29/19 10:22 10:22 10:22 WBC 16.2 H RBC 4.05 L Hgb 12.2 L Hct 37.5 L RDW Gran % Lymph % (Auto) Gran # Lymph # (Auto) Seg Neutrophils % 85 H Lymphocytes % 6 L Polychromasia Rare A D-Dimer 0.96 H Chloride 94 L BUN 50 H Creatinine 1.6 H Glucose 137 H Uric Acid Calcium Magnesium NT-Pro-B Natriuret Pep 1620.0 H Albumin Albumin/Globulin Ratio Meds: Medications Acetaminophen (Tylenol) 650 mg PO Q6HP PRN PRN Reason: PAIN/FEVER > 101 Hydrocodone Bitart/Acetaminophen ([place] 7.5/325mg) 1 tab PO Q6HP PRN PRN Reason: pain Last Admin: 03/30/19 19:24 Dose: 1 tab Documented by: Albuterol/Ipratropium (Duoneb) 3 ml NEB Q4HP PRN PRN Reason: Shortness Of Breath Or Wheezing Ascorbic Acid (Vitamin C) 500 mg PO DAILY [facility] Last Admin: 04/01/19 09:09 Dose: 500 mg Documented by: Aspirin (Ecotrin) 325 mg PO DAILY [facility] Last Admin: 04/01/19 09:10 Dose: 325 mg Documented by: Atorvastatin Calcium (Lipitor) 10 mg PO QDAY [facility] Last Admin: 04/01/19 09:10 Dose: 10 mg Documented by: Cyanocobalamin (Vitamin B-12) 1,000 mcg PO DAILY [facility] Last Admin: 04/01/19 09:10 Dose: 1,000 mcg Documented by: Diltiazem HCl (Cardizem Cd) 240 mg PO DAILY [facility] Last Admin: 04/01/19 09:09 Dose: 240 mg Documented by: Ferrous Sulfate (Ferrous Sulfate) 325 mg PO QDAY [facility] Last Admin: 04/01/19 09:10 Dose: 325 mg Documented by: Furosemide (Lasix) 20 mg PO BID [facility] Last Admin: 04/01/19 09:11 Dose: 20 mg Documented by: Heparin Sodium (Porcine) (Heparin) 5,000 unit SQ Q12 [facility] Last Admin: 04/01/19 09:11 Dose: 5,000 unit Documented by: Levofloxacin (Levaquin) 750 mg PO Q48H [facility]; Protocol Last Admin: 03/31/19 08:43 Dose: 750 mg Documented by: Naloxone HCl (Narcan) 0.1 mg IV Q2MIN PRN PRN Reason: Opiate Reversal Nitroglycerin (Nitrostat) 0.4 mg SL Q5MINP PRN PRN Reason: Chest Pain Ondansetron HCl (Zofran) 4 mg IV Q6HP PRN PRN Reason: Nausea And Vomiting [facility] Last Admin: 04/01/19 09:10 Dose: 40 mg Documented by: Fluticasone 100 Mcg- Umeclidinium 62.5 Mcg- Vilanterol 25 Mcg Inhaler 1 dose INH DAILY [facility] Last Admin: 04/01/19 09:25 Dose: 1 dose Documented by: Prednisone (Prednisone) 40 mg PO [facility] Last Admin: 04/01/19 09:11 Dose: 40 mg Documented by: Sodium Chloride (Saline Flush) 10 ml IV Q8 [facility] Last Admin: 04/01/19 05:50 Dose: 10 ml Documented by: Medical - PN: A/P - Time Spent With Patient Total time spent is greater than 50% in coordination of care (as documented) at patient's floor/unit and/or counseling patient: 15 - 24 minutes (1) Atrial flutter with rapid ventricular response Status: Acute Assessment and plan: * Bacterial pneumonia clinically improving on Levaquin * COPD exacerbation continue bronchodilators/pulmonary toilet/steroids, sputum cultures negative so far * Hypoxic respiratory failure secondary to above -Clinically resolved now on RA * Paroxysmal A. fib RVR-converted to sinus post amiodarone load. Continue diltiazem. Continue aspirin for CVA prophylaxis * Hypotension-resolved. Likely secondary to RVR-related low cardiac output * DNR * Prophylaxis heparin Plan * Transfer to medical floor * Continue antibiotic coverage/pulmonary toilet and steroids * PT OT/nutrition support * Discharge in 24 hours Current Visit: No Medical - PN: Qual - VTE Deep Vein Thrombosis/Pulmonary Embolism Present on Admission: No
[2019-04-01] MEDS: HYDROCODONE/APAP 7.5/325MG TABLET PO PRN (16:08)
[2019-04-02 05:33] LABS: ALT/SGPT 19 U/l (0-40); AST/SGOT 17 U/l (0-37); Albumin 2.8 gm/dL (3.2-5.2); Albumin/Globulin Ratio 0.9 (1.0-2.3); Alkaline Phosphatase 61 U/L (39-117); Bilirubin,Direct < 0.2 mg/dL (0.0-0.3); Bilirubin,Total 0.3 mg/dL (0.0-1.0); Blood Urea Nitrogen 54 mg/dl (8-23); Calcium 8.7 mg/dl (8.6-10.4); Carbon Dioxide 26 mmol/L (22-30); Chloride 98 mmol/L (96-108); Gamma Glutamyl Transpeptidase 16 U/L (8-61); Globulin 3.2 gm/dL (2.2-3.7); Glomerular Filtration Rate 46; Glucose 116 mg/dL (70-105); Lactate Dehydrogenase 192 U/L (94-250); Magnesium 2.5 mg/dL (1.6-2.5); Phosphorous 3.1 mg/dL (2.7-4.5); Potassium 4.9 mmol/L (3.3-5.1); Sodium 135 mmol/L (133-145); Triglycerides 112 mg/dl (<150); Uric Acid 8.8 mg/dL (2.5-8.0)
[2019-04-02 05:35] LABS: Basophils # (Auto) 0 K/mcL (0.0-0.3); Basophils % (Auto) 0 % (0.0-2.0); Eosinophils # (Auto) 0 K/mcL (0.0-0.7); Eosinophils % (Auto) 0.2 % (0.0-7.0); Granulocytes % (Auto) 87.4 % (38.0-78.0); Hematocrit 38.9 % (41.0-55.0); Hemoglobin 12.4 g/dL (13.5-16.5); Lymphocytes # (Auto) 0.8 K/mcL (1.5-4.8); Mean Cell Volume 92.9 fL (80.0-100.0); Mean Corpuscular HGB Conc 31.9 g/dL (31.0-36.0); Mean Platelet Volume 7.2 fL (7.4-10.4); Monocytes # (Auto) 0.4 K/mcL (0.1-0.9); Monocytes % (Auto) 4.4 % (1.0-12.0); Platelet Count 270 K/mcL (140-440); RBC 4.19 M/mcL (4.50-5.90); Red Cell Distribution Width 14.4 % (11.5-14.5); WBC 9.7 K/mcL (4.5-11.0)
[2019-04-02] MEDS: 0.9 % SODIUM CHLORIDE 10 ML SYRINGE IV SCH (05:52)
[2019-04-02] MEDS: PANTOPRAZOLE 40 MG TABLET PO SCH (07:12)
[2019-04-02] MEDS: LEVOFLOXACIN 750 MG TABLET PO SCH (08:57)
[2019-04-02] MEDS: FUROSEMIDE 20 MG TABLET PO SCH (08:58)
[2019-04-02] MEDS: ATORVASTATIN 20 MG TABLET PO SCH (08:58)
[2019-04-02] MEDS: FERROUS SULFATE 325 MG TABLET PO SCH (08:58)
[2019-04-02] MEDS: predniSONE 20 MG TABLET PO SCH (08:59)
[2019-04-02] MEDS: CYANOCOBALAMIN (VITAMIN B-12) 500 MCG TABLET PO SCH (08:59)
[2019-04-02] MEDS: ASCORBIC ACID 500 MG TABLET PO SCH (08:59)
[2019-04-02] MEDS: ASPIRIN 325 MG ENTERIC COATED TABLET PO SCH (08:59)
[2019-04-02] MEDS: FLUTICASONE 100 MCG INH SCH (09:00)
[2019-04-02] MEDS: UMECLIDINIUM 62.5 MCG INH SCH (09:00)
[2019-04-02] MEDS: VILANTEROL INH SCH (09:00)
[2019-04-02] MEDS: HEPARIN 5,000 UNIT/ML VIAL SQ SCH (09:00)
[2019-04-02] MEDS: DILTIAZEM 240 MG CAP.XL.24H PO SCH (09:00)
--- NOTE | 2019-04-02 09:48 | Discharge Summary ---
Medical - DS: Prov Patient information: Note initiated : 04/02/19 at 9:45 am Service Date, if different from initiated Date: [] Patient: Fareed West 83 y/o M admitted on 03/29/19 for Cold symptoms. Chief Complaint: [] Date of admission: 03/29/19 14:54 Discharge date: 04/02/19 Primary care physician: Janine Andujar Consults: 03/29/19 12:54 Consult to Physician [CONS] Stat Comment: Consulting Provider: Lisa Oleary Reason For Exam: Physician to Consult Medical - DS: Meds - Discharge Medications Prescriptions: Levofloxacin [Levaquin] 750 mg PO Q48H #3 tab predniSONE [Prednisone] 40 [facility] tab Active and Home Medications: Home Medications ascorbic acid (vitamin C) 250 mg tablet 500 mg PO QDAY tab 01/21/18 [History Confirmed 03/29/19 Last Taken 03/28/19] aspirin 325 mg tablet 325 mg PO QDAY 01/21/18 [History Confirmed 03/29/19 Last Taken 03/28/19] atorvastatin 10 mg tablet 10 mg PO QDAY #90 tab 03/10/18 [Rx Confirmed 03/29/19 Last Taken 03/28/19] cholecalciferol (vitamin D3) 2,000 unit capsule 1,000 unit PO QDAY cap 07/06/18 [History Confirmed 03/29/19 Last Taken 03/28/19] cyanocobalamin (vit B-12) 1,000 mcg tablet 1,000 mcg PO QDAY 07/06/18 [History Confirmed 03/29/19 Last Taken 03/28/19] fluticasone fur. 100 mcg-umeclid 62.5 mcg-vilant 25 mcg inhalat.powder 1 inh INHALATION QDAY #60 each 09/05/18 [Rx Confirmed 03/29/19 Last Taken Unknown] hydrocodone 7.5 mg-acetaminophen 325 mg tablet 1 tab PO Q6H PRN #30 tab 09/13/18 [Rx Confirmed 03/29/19 Last Taken Unknown] tramadol 50 mg tablet 50 mg PO TIDP PRN tab 10/03/18 [History Confirmed 03/29/19 Last Taken Unknown] diltiazem CD 240 mg capsule,extended release 24 hr 240 mg PO DAILY #90 cap 10/12/18 [Rx Confirmed 03/29/19 Last Taken 03/28/19] compressor, for nebulizer See Dose Instructions .ROUTE .MEDSUPPLY #1 each 10/27/18 [Rx Confirmed 10/27/18 Last Taken Unknown] ferrous sulfate 325 mg (65 mg iron) tablet 325 mg PO QDAY tab 02/28/19 [History Confirmed 03/29/19 Last Taken 03/28/19] furosemide 20 mg tablet 20 mg PO BID #180 tab 02/28/19 [History Confirmed 03/29/19 Last Taken 03/28/19] nitroglycerin 0.4 mg sublingual tablet 0.4 mg SUBLINGUAL Q5-15M PRN 02/28/19 [History Confirmed 03/29/19 Last Taken Unknown] Levofloxacin [Levaquin] 750 mg PO Q48H #3 tab 04/02/19 [Rx Last Taken Unknown] predniSONE [Prednisone] 40 [facility] #4 tab 04/02/19 [Rx Last Taken Unknown] Medical - DS: Hosp Hospital course: Discharge diagnoses * Bacterial pneumonia clinically improved on Levaquin. Continue additional 3 doses * COPD exacerbation clinical improvement noted on bronchodilators/pulmonary toilet/steroids, sputum cultures negative so far. Continue outpatient bronchodilators/steroids for additional 48 hours. * Hypoxic respiratory failure secondary to above -Clinically resolved now on room air * Paroxysmal A. fib RVR-converted to sinus post amiodarone load. Continue diltiazem. Continue aspirin for CVA prophylaxis * Hypotension-resolved. Likely secondary to RVR-related low cardiac output * Hyperlipidemia continue statin * Degenerative joint disease continue home dose Eleva * GERD contributing PPI * History of iron deficiency anemia continue oral iron Brief hospital course Mr. West is a 83 year old M with history of COPD on home oxygen 2 L at baseline presents to the emergency room with complaints of shortness of breath that has been going on for the last 1 month. Over the last few days the patient shortness of breath is progressively gotten worse. The patient notes that he ran out of his inhaler as few days ago. He also has cough with greenish- yellowish sputum. Shortness of breath is gotten worse that he is unable to do his activities of daily living. The patient denies any fever chills headache changes in vision difficulty in swallowing denies any chest pain nausea vomiting did have some transient abdominal pain which is resolved now no diarrhea or constipation reported. No joint pains no leg swelling no blood in the stools or melena reported In the emergency room on presentation patient is afebrile heart rate 75 blood pressure 123/63, saturating 91% on 2 L of oxygen. Labs show W his count of 16,000 hemoglobin 12.2 platelets 216 chemistries show a creatinine of 1.6 which is at baseline procalcitonin is 0.83 lactic acid 1.1 Chest x-ray shows emphysema right middle lobe as well as left upper lobe infiltrate Patient is being admitted to the hospital with a diagnosis of pneumonia and COPD exacerbation 03/30 Patient seen examined Patient still short of breath on exertion, he is on 1.5 L of oxygen to keep his oxygen saturation more than 90%. He does feel better compared to yesterday WBC count is trending down his blood pressure was low, health a.m. blood pressure medications as well as his diuretics Patient has irregular rhythm intermittently, he does have a history of A. fib I reviewed with him he follows with Dr. John takes aspirin, 03/30 4 PM- patient heart rate in 180 with blood pressure down to mid 70s. Digoxin loaded 250 mcg/metoprolol IV as needed. Transfer to telemetry. Hold antihypertensives. Continue close monitoring hemodynamics. Inadequate response to digoxin with heart rate/RVR sustained around 180. Failed metoprolol dose with blood pressure dropping to 70s. Started on amiodarone load. 03/31-patient doing well. Currently in sinus after amiodarone load. Blood pressures 140. Feeling a lot better. Stable hemodynamics. Continue telemetry monitoring. Restart diltiazem. White count down from 16.2-9.7. On antibiotic coverage/steroids for pneumonia/COPD flare. Currently on 2 L oxygen. 04/01- patient doing well. Currently in sinus rhythm. Off oxygen. One episode of RVR around early this morning. Short lived. White count down to 10.6 and 16.2. Hypotension resolved. Clinical improvement pneumonia noted. Possible discharge in 24 hours with no further episodes of RVR. We will downgrade to medical floor later this evening if remains rate controlled. No overnight fever or chills. Stable labs, creatinine 1.4. 04/02-patient doing remarkably better. Currently in paroxysmal A. fib. Rate controlled. No overnight fever chills. Currently on room air. Denies fever chills cough. Ambulating and tolerating physical therapy and diet. Feels at baseline. Requesting discharge. Continue antibiotics for additional 3 doses along with steroid for additional 48 hours. Follow outpatient with PCP on discharge. Instructions as below Discharge diagnosis: . - Time Spent with Patient Total time spent providing and/or coordinating discharge services: Greater than 30 minutes Medical - DS: Exam - Constitutional Vitals: Vital Signs Temp Pulse Resp BP BP Pulse Ox 04/02/19 08:01 98.3 F 20 123/72 92 04/02/19 03:26 96.8 F L 16 141/64 92 04/01/19 23:21 97.5 F 63 16 129/61 97 04/01/19 19:03 98.8 F 67 16 133/59 91 04/01/19 16:02 151/88 93 04/01/19 12:35 146/81 04/01/19 12:00 99.4 F H 20 138/67 94 04/01/19 11:36 138/67 Intake and Output 04/01/19 04/02/19 04/02/19 21:59 05:59 13:59 Intake Total 990 240 Output Total 350 Balance 990 -110 Intake: Oral 870 240 Tube Feeding 120 Output: Void Amount 350 # of times incontinent of urine 0 Other: Meal Dinner Breakfast Percent of Meal Consumed 90 100% Feeding Ability Independent Independent Urine Appearance Clear Urine Color Bright Yellow Urine Odor Normal # Voids 1 0 Weight 119 lb Medical - DS: Data Labs on day of discharge: Labs from last 24 hours 04/02/19 04/02/19 03:26 03:26 WBC 9.7 RBC 4.19 L Hgb 12.4 L Hct 38.9 L MCV 92.9 MCH 29.7 MCHC 31.9 RDW 14.4 Plt Count 270 MPV 7.2 L Gran % 87.4 H Lymph % (Auto) 8.0 L [place] % (Auto) 4.4 Eos % (Auto) 0.2 Baso % (Auto) 0 Gran # 8.4 H Lymph # (Auto) 0.8 L [place] # (Auto) 0.4 Eos # (Auto) 0 Baso # (Auto) 0 Sodium 135 Potassium 4.9 Chloride 98 Carbon Dioxide 26 Anion Gap 11.0 BUN 54 H Creatinine 1.4 H GFR Calculation 46 Glucose 116 H Uric Acid 8.8 H Calcium 8.7 Phosphorus 3.1 Magnesium 2.5 Total Bilirubin 0.3 Direct Bilirubin < 0.2 GGT 16 AST 17 ALT 19 Alkaline Phosphatase 61 Lactate Dehydrogenase 192 Total Protein 6.0 Albumin 2.8 L Globulin 3.2 Albumin/Globulin Ratio 0.9 L Triglycerides 112 Preliminary micro results at discharge 03/29/19 10:22 Blood Culture - Preliminary Blood 03/29/19 10:39 Blood Culture - Preliminary Blood Medical - DS: A/P - Patient/Caregiver Discharge Instructions Activity: increase activity as tolerated, resume usual activities as tolerated Diet: Regular Diet Additional Instructions: Follow-up PCP in 5 days I recommend [facility] physician to check CBC BMP UA as a posthospital follow-up Continue antibiotic for additional 3 doses Continue steroid for 48 hours Recommend pulmonary function test as outpatient in 3 weeks Continue aggressive bowel regimen to prevent constipation Continue fall precautions All meals on chair sitting upright at 90 degrees to prevent aspiration Return to ER if worsening fever chills shortness of breath, diarrhea, bleeding Review risk and side effect profile of medications including antibiotics. Side effect may include mild to severe reaction including rash, diarrhea, cdiff and even which can be prevented by close follow-up with PCP and monitoring for side effects Refrain from smoking and alcohol Continue diet and activity as advised Discussed importance of medication adherence Please review medication list with patient prior to discharge Please schedule follow-up with PCP/Providers prior to discharge and provide printouts Prescriptions: Levofloxacin [Levaquin] 750 mg PO Q48H #3 tab predniSONE [Prednisone] 40 mg PO QAC #4 tab - Problem Maintenance (1) Atrial flutter with rapid ventricular response Status: Acute - Follow up Plan Follow up with: Janine Andujar, ANDREEA, [employer] ADMIN[employer]RATIVE TECHNICIAN [Primary Care Provider] - Disposition: Home, Self-Care Prognosis: Fair Rehab Potential: Fair I certify that the patient requires SNF services: No Overall status at discharge: patient is progressing back to baseline Medical - DS: Qual - VTE Deep Vein Thrombosis/Pulmonary Embolism Present on Admission: No
== END 2019-04-02 11:35 | disposition home or self-care (01) | DRG 190 ==
LOC: ED 09:56 → MEDSUR 14:54 → ICU 03-30 16:43
PROVIDERS: ADMIT Internal Medicine; ATTEND Internal Medicine

== ENCOUNTER 2020-04-13 10:57 | Inpatient (IN) ==
[2020-04-13] MEDS ORDERED: LACTATED RINGERS 1,000 ML IV ONE (11:17)
[2020-04-13] MEDS ORDERED: IPRATROPIUM/ALBUTEROL 3 ML AMPUL.NEB NEB ONE (11:17)
[2020-04-13] MEDS ORDERED: DILTIAZEM 25 MG/5 ML VIAL IV ONE ×2 (11:28→12:55)
[2020-04-13] MEDS ORDERED: DIGOXIN 500 MCG/2 ML AMPUL IV ONE (11:45)
--- NOTE | 2020-04-13 12:12 | Emergency Department Note ---
Weakness HPI - General Chief complaint: Weakness Stated complaint: Increased weakness and sob Time Seen by Provider: 04/13/20 11:09 Source: patient, family Mode of arrival: ambulatory - History of Present Illness HPI Narrative: This 84-year-old gentleman is brought in by his daughter secondary to generalized weakness, increased difficulty with his breathing. The last 2 days. Notably he was seen here a few weeks ago at which time he was thought to have an episode of atrial fibrillation which had resolved and where he stayed in sinus rhythm. Discharge to home with a negative chest x-ray. While on one other occasion he was thought to have COPD exacerbation and he was discharged to home on doxycycline as well as some prednisone. At this time he denies chest pain. Notably he had an episode of atrial tachycardia with a rate in the 180s while he was in the ED and on the monitor and along with that episode of tachycardia his blood pressure was in the 50s systolic. He normally is on 3 L of O2 at home via nasal cannula but on arrival he was on 5 L of. He's had a slight cough, nonproductive, not associated with fevers or chest pain. He denies ankle edema. He does take blood thinners and denies any recent falls or trauma. No nausea or vomiting, he is not eating real well, denies black tarry stools, denies diarrhea. MD Complaint: generalized weakness, lack of energy Onset (ago): day(s) Duration: constant Location: generalized - Related Data Home Medications Medication Instructions Recorded Confirmed ascorbic acid (vitamin C) 250 mg 500 mg PO QDAY tab 01/21/18 04/06/20 tablet aspirin 325 mg tablet 325 mg PO QDAY 01/21/18 04/13/20 cholecalciferol (vitamin D3) 50 2,000 unit PO QDAY cap 07/06/18 04/13/20 mcg (2,000 unit) capsule cyanocobalamin (vitamin B-12) 1,000 mcg PO QDAY 07/06/18 04/13/20 1,000 mcg tablet nitroglycerin 0.4 mg sublingual 0.4 mg SUBLINGUAL Q5-15M PRN 02/28/19 04/13/20 tablet furosemide 20 mg tablet 20 mg PO BID #180 tab 07/03/19 04/13/20 levothyroxine 25 mcg capsule 25 mcg PO QDAY 07/03/19 04/13/20 Clopidogrel Bisulfate [Plavix] 75 mg PO DAILY 04/06/20 04/06/20 Trelegy 1 puff IH DAILY 04/06/20 04/06/20 Previous Rx's Medication Instructions Recorded atorvastatin 10 mg tablet 10 mg PO QDAY #90 tab 03/10/18 hydrocodone 7.5 mg-acetaminophen 1 tab PO Q6H PRN #30 tab 09/13/18 325 mg tablet diltiazem HCl 240 mg 240 mg PO DAILY #90 cap 10/12/18 capsule,extended release 24 hr Allergies Allergy/AdvReac Type Severity Reaction Status Date / Time No Known Drug Allergies Allergy Verified 03/20/20 18:47 Review of Systems Limitations: ROS unobtainable due to patients medical condition Constitutional: Denies: fever, chills ENT ED: Denies: throat pain Cardiovascular: Reports: palpitations, dyspnea on exertion. Denies: chest pain Respiratory: Reports: shortness of breath, cough Gastrointestinal: Denies: abdominal pain, nausea, vomiting Genitourinary: Denies: dysuria Past Medical History - Past Medical History [facility] Narrative: - Past Medical History [facility] Narrative: Medical History (Last Reviewed 01/02/20 @ 08:00 by Fareed Sánchez MD) Peripheral arterial disease (Chronic ~10/2014) CAD (coronary artery disease) (Chronic) Atrial flutter with rapid ventricular response (Resolved) Pulmonary hypertension, secondary (Chronic) Hyperlipidemia (Chronic) Hypertension, essential (Chronic) Bilateral carotid artery stenosis (Chronic) Mitral valve disorder (Chronic) Aortic valve disorder (Chronic) Cardiac arrhythmia (Chronic) Kidney disease, chronic, stage III (GFR 30-59 ml/min) (Chronic) COPD (chronic obstructive pulmonary disease) with emphysema (Chronic) Osteoporosis (Chronic) Clostridium difficile infection (Resolved) Intussusception of jejunum (Chronic) Hematuria (Chronic) Tobacco abuse (Resolved) SVT (supraventricular tachycardia) (Chronic) Lung nodule (Chronic) Hip pain (Chronic) Hearing loss (Chronic) Erectile dysfunction (Chronic) Colon polyp (Chronic) Back pain (Chronic) Anemia (Chronic) Allergic rhinitis (Chronic) Acute exacerbation of chronic obstructive airways disease (Resolved) Atrial fibrillation (Resolved) Atrial fibrillation with rapid ventricular response (Resolved) C. difficile diarrhea (Resolved) Chest pressure (Resolved) Dehydration (Resolved) Dehydration with hyponatremia (Resolved) Diarrhea (Resolved) Emphysema lung (Resolved) Foreign body left in wound (Resolved) Hemoptysis (Resolved) History of peptic ulcer disease (Resolved) Hx of angiography (Resolved) Hypercholesteremia (Resolved) Hyperkalemia (Resolved) Hypotension (Resolved) Muscle strain of right upper extremity (Resolved) Occipital scalp laceration (Resolved) Orthostatic hypotension (Resolved) Pneumonia (Resolved) Pneumonia (Resolved) Pneumothorax after biopsy (Resolved) Screening for colon cancer (Resolved) Screening for prostate cancer (Resolved) Heart valve disease (Inactive) Past Surgical History (Last Reviewed 01/02/20 @ 08:00 by Fareed Sánchez MD) S/P insertion of iliac artery stent (Chronic) Hx of appendectomy (Acute) History of endoscopy (Chronic 07/20/18) History of carotid endarterectomy (Resolved) History of dental surgery (Resolved) History of gastrectomy (Resolved) Hx of angioplasty (Resolved) Hx of appendectomy (Resolved) Hx of colonoscopy (Resolved) Hx of esophagogastroduodenoscopy (Resolved) Ulcer, surgical (Resolved) Source: old records reviewed, nursing notes reviewed Medical history: Reports: CAD (coronary artery disease), COPD, hyperlipidemia, hypertension, peripheral artery disease, renal disease (Stage III), valvular heart disease (Aortic), other (Pulmonary hypertension, bilateral hearing loss, history of ulcers). Denies: CHF Psychiatric history: Reports: no psych history Surgical history ED: Reports: angioplasty/stent, appendectomy, carotid endarterectomy, other (Billroth II) Family history: Reports: cancer, hypertension - Social History smoking status: Former smoker Alcohol use: Reports: Unknown Drug use: Reports: none Physical Exam General appearance: alert, cachectic, in distress, nontoxic Head: atraumatic, normocephalic, normal inspection Eye: Present: normal appearance, PERRL, EOMI. Absent: scleral icterus, conjunctival injection ENT: Present: normal exam, normal oropharynx, mucous membranes dry, other (hearing aids bilaterally, quite hard of hearing) Neck: Present: normal inspection, full ROM, trachea midline. Absent: tenderness, lymphadenopathy Chest: Present: normal inspection, symmetric chest wall rise Respiratory: Present: rales/crackles, accessory muscle use, decreased breath sounds. Absent: wheezes Cardiovascular: Present: regular rate, tachycardia. Absent: gallop, JVD Abdominal: Present: soft, diminished bowel sounds. Absent: distention, tenderness, guarding, rebound, rigidity Extremities: Present: normal inspection, full ROM. Absent: tenderness, pedal edema, cyanosis, clubbing Back: Present: normal inspection. Absent: CVA tenderness (R), CVA tenderness (L) Neurological: Present: alert, oriented X3 Psychiatric: Present: normal affect Skin: Present: warm, dry, cyanosis, pallor. Absent: rash, diaphoresis Course - Reevaluation(s) Reevaluation #1: Patient started on IV fluids, we did give him a small fluid bolus as he was hypotensive. Given that his blood pressure recently was 84 systolic we held off on giving him Cardizem IV. Instead we chose to use digoxin 0.25 mg IV for rate control and at this time he is still in sinus rhythm. Pulmonary EKG showing sinus tachycardia, occasional PVCs, [address] segment depression in V4. P pulmonale and signs of right ventricular hypertrophy. Reevaluation #2: Did get hold of the family member and this seems to be a compliance issue with his medications as well. He cannot remember exactly when his dose of diltiazem was. His blood pressure did improve with small fluid bolus and administration of digoxin IV. In comparing his creatinine of 1.7 with previous values. This seems about the same. His proBNP is elevated compared to one that was done a year ago. He had 2 episodes of tachycardia which appeared to be in atrial tachycardia with a rate of 180 and associated with hypotension while he was in the ED. This was documented on the rhythm strip. His troponin was 0.02, is not having active chest pain at this time. I do think that his condition warrants observation in the hospital for 24 hours. Given that he's had 2 episodes of hypotension. CBC otherwise with normal white count. Chest x-ray without acute infiltrates, his lung exam without acute wheezing and thus I do not think he has COPD exacerbation. His weakness is rather from a rhythm issue. We did give him 10 mg IV of Cardizem and right now he is in sinus tachycardia and his blood pressure has been stable after fluid administration. Hospitalist, Dr. Sargent was paged Vital Signs Temperature 97.2 F 04/13/20 10:58 Pulse Rate 120 H 04/13/20 10:58 Respiratory Rate 23 H 04/13/20 10:58 Blood Pressure 156/83 04/13/20 10:58 Pulse Oximetry (%) 93 04/13/20 10:58 Temperature 97.2 F 04/13/20 10:58 Pulse Rate 158 H 04/13/20 12:31 Respiratory Rate 21 04/13/20 12:31 Blood Pressure 129/79 04/13/20 12:31 Pulse Oximetry (%) 100 04/13/20 12:31 Weakness - MDM Narrative Medical decision making narrative: Impression is CHF, atrial tachycardia associated with hypotension. History of COPD, generalized weakness from atrial tachycardia - Lab Data Lab results reviewed: Yes I reviewed the patient's lab results. Result diagrams: 04/13/20 11:26 04/13/20 11:25 Lab Results 04/13/20 04/13/20 04/13/20 Range/Units 11:25 11:25 11:25 WBC (4.50-11.00) K/mcL RBC (4.63-6.08) M/mcL Hgb (13.7-17.5) g/dL Hct (40.1-51.0) % MCV (80.0-100.0) fL MCH (26.0-34.0) pg MCHC (31.0-36.0) g/dL RDW (11.5-14.5) % Plt Count (140-440) K/mcL MPV (7.4-10.4) fL Gran % (38.0-78.0) % Lymph % (Auto) (15.5-49.0) % [place] % (Auto) (1.0-12.0) % Eos % (Auto) (0.0-7.0) % Baso % (Auto) (0.0-2.0) % Gran # (1.80-8.00) K/mcL Lymph # (Auto) (1.50-4.80) K/mcL [place] # (Auto) (0.10-0.90) K/mcL Eos # (Auto) (0.00-0.70) K/mcL Baso # (Auto) (0.00-0.30) K/mcL VBG Lactic Acid 1.2 (0.5-2.0) mmol/L Sodium 139 (133-145) mmol/L Potassium 4.0 (3.3-5.1) mmol/L Chloride 98 (96-108) mmol/L Carbon Dioxide 27 (22-30) mmol/L Anion Gap 14.0 (8-16) BUN 31 H (8-23) mg/dl Creatinine 1.7 H (0.7-1.2) mg/dl GFR Calculation 36 Glucose 118 H (70-105) mg/dL Calcium 8.8 (8.6-10.4) mg/dl Total Bilirubin 0.3 (0.0-1.0) mg/dL AST 17 (0-37) U/l ALT 13 (0-40) U/l Alkaline Phosphatase 65 (39-117) U/L Troponin T 0.02 (0-0.03) ng/ml NT-Pro-B Natriuret Pep 3267.0 H (0-450) pg/ml Total Protein 6.5 (5.9-8.4) gm/dL Albumin 3.6 (3.2-5.2) gm/dL Globulin 2.9 (2.2-3.7) gm/dL Albumin/Globulin Ratio 1.2 (1.0-2.3) 04/13/20 Range/Units 11:26 WBC 9.6 (4.50-11.00) K/mcL RBC 4.19 L (4.63-6.08) M/mcL Hgb 12.9 L (13.7-17.5) g/dL Hct 39.6 L (40.1-51.0) % MCV 94.5 (80.0-100.0) fL MCH 30.8 (26.0-34.0) pg MCHC 32.6 (31.0-36.0) g/dL RDW 13.4 (11.5-14.5) % Plt Count 233 (140-440) K/mcL MPV 9.4 (7.4-10.4) fL Gran % 72.0 (38.0-78.0) % Lymph % (Auto) 17.2 (15.5-49.0) % [place] % (Auto) 8.9 (1.0-12.0) % Eos % (Auto) 1.6 (0.0-7.0) % Baso % (Auto) 0.3 (0.0-2.0) % Gran # 6.89 (1.80-8.00) K/mcL Lymph # (Auto) 1.65 (1.50-4.80) K/mcL [place] # (Auto) 0.85 (0.10-0.90) K/mcL Eos # (Auto) 0.15 (0.00-0.70) K/mcL Baso # (Auto) 0.03 (0.00-0.30) K/mcL VBG Lactic Acid (0.5-2.0) mmol/L Sodium (133-145) mmol/L Potassium (3.3-5.1) mmol/L Chloride (96-108) mmol/L Carbon Dioxide (22-30) mmol/L Anion Gap (8-16) BUN (8-23) mg/dl Creatinine (0.7-1.2) mg/dl GFR Calculation Glucose (70-105) mg/dL Calcium (8.6-10.4) mg/dl Total Bilirubin (0.0-1.0) mg/dL AST (0-37) U/l ALT (0-40) U/l Alkaline Phosphatase (39-117) U/L Troponin T (0-0.03) ng/ml NT-Pro-B Natriuret Pep (0-450) pg/ml Total Protein (5.9-8.4) gm/dL Albumin (3.2-5.2) gm/dL Globulin (2.2-3.7) gm/dL Albumin/Globulin Ratio (1.0-2.3) - Radiology Data Radiology results reviewed: Yes I reviewed the patient's radiology results. - EKG Data EKG attestation: Yes I reviewed and interpreted this EKG. EKG results narrative: Occasional PACs, occasional PVCs. EKG shows normal: sinus rhythm Rate: tachycardia Rhythm: NSR, arrhythmia, junctional, PVC's Voltage: c/w atrial hypertrophy Disposition Pt seen by [employer]/PA only: No Clinical Impression: Atrial tachycardia determined by electrocardiography, Hypotension, COPD (chronic obstructive pulmonary disease) with emphysema, Dehydration, Kidney disease, chronic, stage III (GFR 30-59 ml/min) Disposition: Xfer As Outpt/Obs ([facility]) Condition: Fair Referrals: Janine Andujar, ANDREEA, BIOMETR[employer] SCREENER [Primary Care Provider] -
[2020-04-13 12:25] LABS: Basophils # (Auto) 0.03 K/mcL (0.00-0.30); Basophils % (Auto) 0.3 % (0.0-2.0); Eosinophils # (Auto) 0.15 K/mcL (0.00-0.70); Eosinophils % (Auto) 1.6 % (0.0-7.0); Hematocrit 39.6 % (40.1-51.0); Hemoglobin 12.9 g/dL (13.7-17.5); Lymphocytes # (Auto) 1.65 K/mcL (1.50-4.80); Lymphocytes % (Auto) 17.2 % (15.5-49.0); Mean Cell Volume 94.5 fL (80.0-100.0); Mean Corpuscular HGB Conc 32.6 g/dL (31.0-36.0); Mean Platelet Volume 9.4 fL (7.4-10.4); Monocytes # (Auto) 0.85 K/mcL (0.10-0.90); Monocytes % (Auto) 8.9 % (1.0-12.0); Platelet Count 233 K/mcL (140-440); RBC 4.19 M/mcL (4.63-6.08); Red Cell Distribution Width 13.4 % (11.5-14.5); WBC 9.6 K/mcL (4.50-11.00)
[2020-04-13 12:51] LABS: ALT/SGPT 13 U/l (0-40); AST/SGOT 17 U/l (0-37); Albumin 3.6 gm/dL (3.2-5.2); Albumin/Globulin Ratio 1.2 (1.0-2.3); Alkaline Phosphatase 65 U/L (39-117); Bilirubin,Total 0.3 mg/dL (0.0-1.0); Blood Urea Nitrogen 31 mg/dl (8-23); Calcium 8.8 mg/dl (8.6-10.4); Carbon Dioxide 27 mmol/L (22-30); Chloride 98 mmol/L (96-108); Globulin 2.9 gm/dL (2.2-3.7); Glucose 118 mg/dL (70-105)
[2020-04-13 12:59] LABS: Glomerular Filtration Rate 36
[2020-04-13 14:39] LABS: Thyroid Stimulating Hormone 1.23 uIU/ml (0.27-5.01)
--- NOTE | 2020-04-13 14:40 | Internal Med History&Physical ---
Medical - H&P: [facility] Patient information: Note initiated : 04/13/20 at 2:34 pm Service Date, if different from initiated Date: [] Patient: Fareed West a 84 y/o M admitted on for Increased weakness and sob. Chief Complaint: [] History of present illness: Mr. West is a 84 year old M Presents the ED with several days of shortness of breath and weakness. In the ED he was found to be hypotensive and tachycardic but appeared to be SVT. Than digoxin and then when his blood pressure came up was given diltiazem with b estela rate control. Old notes mention paroxysmal atrial fibrillation/flutter. Looking at some of t he old EKGs no obvious fibrillation/flutter although a couple telemetry strips and the beginning of a EKG look like they might have started to catch this arrhythmia but difficult to tell. When EKG with an SVT in the past. Patient is never been on anticoagulation. Patient reports a chronic cough but nothing new, states he coughs up phlegm. Family members question whether or not he is taking his medications correctly. Patient denies any headache fever chills. Denies chest pain. No swelling in his legs. This x-ray shows chronic changes, including fibrosis. Had a recent CT chest. Review of Systems: Pertinent positives as above. Denies headache/fever/chills/nausea/vomiting/chest or abdominal pain//diarrhea. Remaining 10 point review of system reviewed negative Medical - H&P: [facility] Medical history: Medical History (Last Reviewed 01/02/20 @ 08:00 by Fareed Sánchez MD) Peripheral arterial disease (Chronic ~10/2014) CAD (coronary artery disease) (Chronic) Atrial flutter with rapid ventricular response (Resolved) Pulmonary hypertension, secondary (Chronic) Hyperlipidemia (Chronic) Hypertension, essential (Chronic) Bilateral carotid artery stenosis (Chronic) Mitral valve disorder (Chronic) Aortic valve disorder (Chronic) Cardiac arrhythmia (Chronic) Kidney disease, chronic, stage III (GFR 30-59 ml/min) (Chronic) COPD (chronic obstructive pulmonary disease) with emphysema (Chronic) Osteoporosis (Chronic) Clostridium difficile infection (Resolved) Intussusception of jejunum (Chronic) Hematuria (Chronic) Tobacco abuse (Resolved) SVT (supraventricular tachycardia) (Chronic) Lung nodule (Chronic) Hip pain (Chronic) Hearing loss (Chronic) Erectile dysfunction (Chronic) Colon polyp (Chronic) Back pain (Chronic) Anemia (Chronic) Allergic rhinitis (Chronic) Acute exacerbation of chronic obstructive airways disease (Resolved) Atrial fibrillation (Resolved) Atrial fibrillation with rapid ventricular response (Resolved) C. difficile diarrhea (Resolved) Chest pressure (Resolved) Dehydration (Resolved) Dehydration with hyponatremia (Resolved) Diarrhea (Resolved) Emphysema lung (Resolved) Foreign body left in wound (Resolved) Hemoptysis (Resolved) History of peptic ulcer disease (Resolved) Hx of angiography (Resolved) Hypercholesteremia (Resolved) Hyperkalemia (Resolved) Hypotension (Resolved) Muscle strain of right upper extremity (Resolved) Occipital scalp laceration (Resolved) Orthostatic hypotension (Resolved) Pneumonia (Resolved) Pneumonia (Resolved) Pneumothorax after biopsy (Resolved) Screening for colon cancer (Resolved) Screening for prostate cancer (Resolved) Heart valve disease (Inactive) Past Surgical History (Last Reviewed 01/02/20 @ 08:00 by Fareed Sánchez MD) S/P insertion of iliac artery stent (Chronic) Hx of appendectomy (Acute) History of endoscopy (Chronic 07/20/18) History of carotid endarterectomy (Resolved) History of dental surgery (Resolved) History of gastrectomy (Resolved) Hx of angioplasty (Resolved) Hx of appendectomy (Resolved) Hx of colonoscopy (Resolved) Hx of esophagogastroduodenoscopy (Resolved) Ulcer, surgical (Resolved) Family History (Last Reviewed 01/02/20 @ 08:00 by Fareed Sánchez MD) mother Family history of malignant neoplasm, Onset Age: 91 Family history of arthritis grandfather (maternal) Acute myocardial infarction son Osteoarthritis Malignant neoplasm of pancreas Social History (Last Updated 01/02/20 @ 09:28 by Fareed Sánchez MD) Patient states he quit smoking several years ago Denies alcohol Ambulates with a cane Lives at home with family Medical - H&P: Meds Home Medications Medication Instructions Recorded Confirmed Type ascorbic acid (vitamin C) 250 mg 500 mg PO QHS tab 01/21/18 04/13/20 History tablet aspirin 325 mg tablet 325 mg PO QDAY 01/21/18 04/13/20 History atorvastatin 10 mg tablet 10 mg PO QDAY #90 tab 03/10/18 04/13/20 Rx cholecalciferol (vitamin D3) 50 2,000 unit PO QDAY cap 07/06/18 04/13/20 History mcg (2,000 unit) capsule cyanocobalamin (vitamin B-12) 1,000 mcg PO QDAY 07/06/18 04/13/20 History 1,000 mcg tablet hydrocodone 7.5 mg-acetaminophen 1 tab PO Q6H PRN #30 tab 09/13/18 04/13/20 Rx 325 mg tablet diltiazem HCl 240 mg 240 mg PO DAILY #90 cap 10/12/18 04/13/20 Rx capsule,extended release 24 hr nitroglycerin 0.4 mg sublingual 0.4 mg SUBLINGUAL Q5-15M PRN 02/28/19 04/13/20 History tablet furosemide 20 mg tablet 20 mg PO BID #180 tab 07/03/19 04/13/20 History levothyroxine 25 mcg capsule 25 mcg PO QDAY 07/03/19 04/13/20 History Trelegy 1 puff IH DAILY 04/06/20 04/13/20 History Allergies Allergy/AdvReac Type Severity Reaction Status Date / Time No Known Drug Allergies Allergy Verified 03/20/20 18:47 Medical - H&P: Exam - Constitutional Vitals: Temp Pulse Resp BP Pulse Ox 97.2 F 75 16 148/58 97 04/13/20 10:58 04/13/20 14:17 04/13/20 14:17 04/13/20 14:17 04/13/20 14:17 Exam: General: Alert, Awake, No acute Distress Eyes/N/T: EOMI, PERRL, dry MM Head/Neck: neck supple, normocephalic atraumatic CV: Regular with occasional irregularity, telemetry with PACs and an occasional PVC, No murmurs, normal s1/s2 Pulm: Clear b/l, no wheezing/rhonchi/rales, prolonged expiratory phase Abd: soft, nontender, +BS x4 Ext: no clubbing/cyanosis/edema Neuro: Alert, no focal deficits, moves all extremities, CN 2-12 grossly intact, symmetrical strength b/l upper/lower, sensations intact b/l upper/lower Skin: warm/dry Medical - H&P: Reslt - Labs CBC & Chem 7: 04/13/20 11:26 04/13/20 11:25 Labs: Short CBC 04/13/20 Range/Units 11:26 WBC 9.6 (4.50-11.00) K/mcL Hgb 12.9 L (13.7-17.5) g/dL Hct 39.6 L (40.1-51.0) % Plt Count 233 (140-440) K/mcL BMP 04/13/20 11:25 Sodium 139 Potassium 4.0 Chloride 98 Carbon Dioxide 27 BUN 31 H Creatinine 1.7 H Glucose 118 H Calcium 8.8 Cardiac Enzymes 04/13/20 Range/Units 11:25 Troponin T 0.02 (0-0.03) ng/ml Liver Function 04/13/20 Range/Units 11:25 Total Bilirubin 0.3 (0.0-1.0) mg/dL AST 17 (0-37) U/l ALT 13 (0-40) U/l Alkaline Phosphatase 65 (39-117) U/L Albumin 3.6 (3.2-5.2) gm/dL Medical - H&P: A/P - Narrative A/P Narrative: A: *SVT with hypotension: Resolved in ED but had several episodes. *History of arrhythmia: -Old notes mention paroxysmal atrial flutter/fibrillation but unable to find any EKGs definitively show this and patient not on anticoagulation -one was obviously SVT, others ?MAT *Family concerned he may not be taking his medications correctly: *COPD (on 3L NC@home): *HTN: *PVD: incluing HIMANSHU/LE dz/SUE *CKD IIIb: *volume depletion: P: -monitor on tele -con home dilt -may updated echo done over a year ago -cont home IH, prn nebs, home O2 -check TSH/Mg -cont ASA/Plavix - -pt/ot -ppx: heparin DNR
[2020-04-13] MEDS ORDERED: ACETAMINOPHEN 325 MG TABLET PO PRN (15:53)
[2020-04-13] MEDS ORDERED: METOPROLOL TARTRATE 5 MG/5 ML VIAL IV PRN ×2 (15:53→19:03)
[2020-04-13] MEDS ORDERED: POLYETHYLENE GLYCOL 3350 17 GM PACKET PO PRN (15:53)
[2020-04-13] MEDS ORDERED: POTASSIUM CHLORIDE 20 MEQ TABLET PO PRN ×2 (15:53)
[2020-04-13] MEDS ORDERED: ONDANSETRON 4 MG/2 ML VIAL IV PRN (15:53)
[2020-04-13] MEDS ORDERED: IPRATROPIUM/ALBUTEROL 3 ML AMPUL.NEB NEB PRN (15:53)
[2020-04-13] MEDS ORDERED: POTASSIUM CHLORIDE 40 MEQ in DEXTROSE 5% IN WATER 500 ML IV PRN (15:53)
[2020-04-13] MEDS ORDERED: MAGNESIUM SULFATE 2 GM/50 ML BAG IV PRN (15:53)
[2020-04-13] MEDS ORDERED: SENNOSIDES 1 TABLET PO PRN (15:53)
[2020-04-13] MEDS ORDERED: NITROGLYCERIN 0.4 MG TAB.SUBL SL PRN (15:53)
[2020-04-13] MEDS ORDERED: DILTIAZEM 120 MG CAP.XL.24H PO ONE ×2 (16:03→16:09)
[2020-04-13] MEDS ORDERED: ADENOSINE 3 MG/ML VIAL IV ONE (16:26)
[2020-04-13] MEDS: METOPROLOL TARTRATE 5 MG/5 ML VIAL IV SCH ×2 (16:30→19:02)
--- NOTE | 2020-04-13 16:59 | XRay Report ---
CLINICAL INFORMATION: dyspnea COMPARISON: 04/06/2020 plain film and chest CT 10/19/2019 FINDINGS: Mild cardiomegaly is unchanged. Mediastinum and pulmonary vessels are unremarkable. Moderate COPD (confirmed on [address]) again appreciated. Scattered fibrosis in the lateral left midlung and basilar region similar to multiple prior exams. No new pulmonary abnormalities. Possible 20% atypical right pneumothorax appreciated. Patient has been admitted and will return for additional views no effusions IMPRESSION: 1. Possible 20% right pneumothorax. The patient has been admitted and additional PA lateral and cone views of the right upper lobe will be obtained. 2. Moderate COPD. Scattered scarring in the left mid and both lung bases, but no definite infiltrate 3. Mild stable cardiomegaly Interpreted and Authenticated by: Ambrocio Lemus 04/13/20
--- NOTE | 2020-04-13 17:29 | XRay Report ---
CLINICAL INFORMATION: COPD with dyspnea. Possible right pneumothorax on portable chest COMPARISON: Chest CT 04/02/2020 portable chest x-ray 04/13/2020. FINDINGS: Mild cardiomegaly is unchanged. Mediastinum and pulmonary vessels are normal. Moderate COPD changes appreciated. There is no evidence of right pneumothorax. 16 mm focal scarring in the right apex is unchanged from the CT IMPRESSION: Mild cardiomegaly and moderate COPD. No acute disease. No evidence of right pneumothorax Interpreted and Authenticated by: Ambrocio Lemus 04/13/20
[2020-04-13] MEDS ORDERED: LABETALOL 5 MG/ML ML IV PRN ×2 (18:27→20:06)
[2020-04-13] MEDS ORDERED: ENALAPRILAT 1.25 MG/ML VIAL IV PRN ×2 (18:29→20:06)
[2020-04-13] MEDS ORDERED: ADENOSINE 3 MG/ML VIAL IV PRN (19:04)
[2020-04-13] MEDS: 0.9 % SODIUM CHLORIDE 10 ML SYRINGE IV SCH (20:45)
[2020-04-13] MEDS: HEPARIN 5,000 UNIT/ML VIAL SQ SCH (20:45)
[2020-04-13] MEDS: DOCUSATE SODIUM 100 MG CAPSULE PO SCH (20:45)
[2020-04-13] MEDS ORDERED: METOPROLOL TARTRATE 5 MG/5 ML VIAL IV ONE (23:49)
[2020-04-14] MEDS ORDERED: LABETALOL 5 MG/ML ML IV ONE (00:36)
[2020-04-14] MEDS: HYDROCODONE/APAP 7.5/325MG TABLET PO PRN ×2 (04:48→14:08)
[2020-04-14] MEDS: 0.9 % SODIUM CHLORIDE 10 ML SYRINGE IV SCH ×3 (05:35→21:07)
[2020-04-14 07:37] LABS: Bilirubin,Direct < 0.2 mg/dL (0.0-0.3); Chloride 97 mmol/L (96-108)
[2020-04-14 07:39] LABS: ALT/SGPT 12 U/l (0-40); AST/SGOT 19 U/l (0-37); Albumin 3.5 gm/dL (3.2-5.2); Albumin/Globulin Ratio 1.2 (1.0-2.3); Alkaline Phosphatase 67 U/L (39-117); Bilirubin,Total 0.4 mg/dL (0.0-1.0); Blood Urea Nitrogen 27 mg/dl (8-23); Calcium 9.4 mg/dl (8.6-10.4); Carbon Dioxide 28 mmol/L (22-30); Globulin 2.9 gm/dL (2.2-3.7); Glomerular Filtration Rate 45; Glucose 104 mg/dL (70-105); Lactate Dehydrogenase 226 U/L (94-250); Phosphorous 3.3 mg/dL (2.7-4.5); Triglycerides 94 mg/dl (<150)
[2020-04-14] MEDS: LEVOTHYROXINE 25 MCG TABLET PO SCH (07:45)
--- NOTE | 2020-04-14 07:50 | Internal Med Progress Note ---
Medical - PN: Subj Patient information: Note initiated : 04/14/20 at 7:46 am Service Date, if different from initiated Date: [] Patient: Fareed West 84 y/o M admitted on 04/13/20 for Increased weakness and sob. Chief Complaint: [] Interval history: Mr. West is a 84 year old M Presents the ED with several days of shortness of breath and weakness. In the ED he was found to be hypotensive and tachycardic but appeared to be SVT. Than digoxin and then when his blood pressure came up was given diltiazem with better rate control. Old notes mention paroxysmal atrial fibrillation/flutter. Looking at some of th e old EKGs no obvious fibrillation/flutter although a couple telemetry strips and the beginning of a EKG look like they might have started to catch this arrhythmia but difficult to tell. When EKG with an SVT in the past. Patient is never been on anticoagulation. Patient reports a chronic cough but nothing new, states he coughs up phlegm. Family members question whether or not he is taking his medications correctly. Patient denies any headache fever chills. Denies chest pain. No swelling in his legs. This x-ray shows chronic changes, including fibrosis. Had a recent CT chest. 04/14 Patient feeling well this morning. No complaints other than occasional shortness of breath but he does have chronic shortness of breath and chronic cough. Rhythm stable overnight. Telemetry with sinus and occasionally bigeminy, does have PVCs and PACs as well. Review of Systems: denies headache/fever/chills/nausea/vomiting/chest or abdominal pain/diarrhea. Otherwise see above. - Constitutional Vitals: Vital Signs Temp Pulse Resp BP Pulse Ox 98.7 F 65 17 113/67 98 04/14/20 04:01 04/14/20 07:01 04/14/20 07:01 04/14/20 07:01 04/14/20 07:01 Period Temp Pulse Resp BP Sys/Roche Pulse Ox Last 24 Hr 97.2 F-98.8 F 40-160 8-35 48-203/19-117 82-100 Intake and Output 04/13/20 04/14/20 04/14/20 21:59 05:59 13:59 Intake Total 0 Output Total 225 450 Balance -225 -450 Weight 54.119 kg Intake & Output: Intake & Output 04/13/20 04/14/20 04/14/20 21:59 05:59 13:59 Intake Total 0 Output Total 225 450 Balance -225 -450 Weight 54.119 kg Intake: Oral 0 Output: Void Amount 225 450 Other: Urine Appearance Clear Clear Urine Color Pale Pale Stool Size Large Stool Color Brown Stool Consistency Formed # Voids 1 Exam: General: Alert, Awake, No acute Distress Eyes/N/T: EOMI, Head/Neck: neck supple, CV: Regular with occasional irregularity, telemetry with PACs & PVC and occasionally bigeminy , No murmurs, Pulm: Clear b/l, no wheezing/rhonchi/rales, prolonged expiratory phase Abd: soft, nontender, +BS x4 Ext: no clubbing/cyanosis/edema Neuro: Alert, no focal deficits, moves all extremities, Skin: warm/dry Medical - PN: Obj Da - Labs CBC & Chem 7: 04/13/20 11:26 04/14/20 04:35 Labs: Abnormal Lab Results 04/14/20 04/13/20 04/13/20 04:35 11:26 11:25 RBC 4.19 L Hgb 12.9 L Hct 39.6 L BUN 27 H 31 H Creatinine 1.4 H 1.7 H Glucose 118 H Uric Acid 9.0 H NT-Pro-B Natriuret Pep 3267.0 H Meds: Medications Acetaminophen (Tylenol) 650 mg PO Q6HP PRN PRN Reason: PAIN/FEVER > 101 Hydrocodone Bitart/Acetaminophen ([place] 7.5/325mg) 1 tab PO Q6HP PRN; Protocol PRN Reason: pain Last Admin: 04/14/20 04:48 Dose: 1 tab Documented by: Adenosine (Adenocard) 6 mg IV ONCE PRN PRN Reason: Tachyarrhythmias Albuterol/Ipratropium (Duoneb) 3 ml NEB Q4HP PRN PRN Reason: Shortness Of Breath Aspirin (Aspirin) 81 mg PO DAILY [facility] Atorvastatin Calcium (Lipitor) 10 mg PO QDAY [facility] Diltiazem HCl (Cardizem Cd) 240 mg PO DAILY [facility] Docusate Sodium (Colace) 100 mg PO BID [facility] Last Admin: 04/13/20 20:45 Dose: 100 mg Documented by: Enalaprilat (Vasotec) 0 mg IV Q3HP PRN PRN Reason: Blood Pressure - High Heparin Sodium (Porcine) (Heparin) 5,000 unit SQ Q12 [facility] Last Admin: 04/13/20 20:45 Dose: 5,000 unit Documented by: Potassium Chloride 40 meq/ (Dextrose) 520 mls @ 130 mls/hr IV UD PRN PRN Reason: Potassium < 3 Magnesium Sulfate (Magnesium Sulfate) 2 gm in 50 mls @ 50 mls/hr IV UD PRN PRN Reason: Magnesium </= 1.6 Labetalol HCl (Trandate) 0 mg IV Q2HP PRN PRN Reason: Blood Pressure - High Last Admin: 04/14/20 00:39 Dose: 10 mg Documented by: Levothyroxine Sodium (Synthroid) 25 mcg PO QAMAC [facility] Last Admin: 04/14/20 07:45 Dose: 25 mcg Documented by: Nitroglycerin (Nitrostat) 0.4 mg SL Q5M PRN PRN Reason: Chest Pain Ondansetron HCl (Zofran) 4 mg IV Q4HP PRN PRN Reason: Nausea And Vomiting Trelegy Inhaler 1 dose INH DAILY [facility] Polyethylene Glycol (Miralax) 17 gm PO DAILYP PRN PRN Reason: Constipation Potassium Chloride (Kdur) 40 meq PO UD PRN PRN Reason: Potssium is 3-3.5 Potassium Chloride (Kdur) 40 meq PO UD PRN PRN Reason: Potassium < 3 Senna (Senokot) 2 tab PO DAILYP PRN PRN Reason: Constipation Sodium Chloride (Saline Flush) 10 ml IV Q8 [facility] Last Admin: 04/14/20 05:35 Dose: 10 ml Documented by: Medical - PN: A/P - Time Spent With Patient Total time spent is greater than 50% in coordination of care (as documented) at patient's floor/unit and/or counseling patient: - Narrative A/P Narrative: A: *SVT w/borderline hypotension: several episodes in ED then again in ICU x1 -TSH/Mg ok *History of arrhythmia: -Old notes mention paroxysmal atrial flutter/fibrillation but unable to find any EKGs definitively showing this and patient not on anticoagulation -one was obviously SVT, others ?MAT specifically -is on diltiazem but family concerned he may not be taking consistently *possible medication noncompliance: *COPD (on 3L NC@home): *HTN: home med diltiazem 240 *PVD: incluing HIMANSHU/LE dz/SUE with stents to carotids and LE's *CKD IIIb: *volume depletion: resolved P: -monitor on tele -con home dilt, prn adenosine/lopressor/vagal maneuvers -cont home IH, prn nebs, home O2 -cont ASA/Plavix -pt/ot -ppx: heparin DNR Medical - PN: Qual - VTE Deep Vein Thrombosis/Pulmonary Embolism Present on Admission: No
[2020-04-14] MEDS: ATORVASTATIN 20 MG TABLET PO SCH (08:20)
[2020-04-14] MEDS: DOCUSATE SODIUM 100 MG CAPSULE PO SCH ×2 (08:22→21:01)
[2020-04-14] MEDS: DILTIAZEM 240 MG CAP.XL.24H PO SCH (08:22)
[2020-04-14] MEDS: HEPARIN 5,000 UNIT/ML VIAL SQ SCH ×2 (08:22→21:01)
[2020-04-14] MEDS: ASPIRIN 81 MG TAB.CHEW PO SCH (08:22)
[2020-04-14] MEDS: TRELEGY INH SCH ×2 (08:27→12:09)
[2020-04-14 17:12] LABS: Appearance,Urine CLEAR; Bilirubin,Urine NEG (NEG); Color,Urine YELLOW; Culture Indicated,Urine NO; Glucose,Urine (UA) NEGATIVE (NEG); Ketones,Urine NEG (NEG); Leukocyte Esterase,Urine NEG /uL (NEG); Nitrate,Urine NEG (NEG); Protein,Urine NEG (NEG); Specific Gravity,Urine 1.015 (1.000-1.035); Urine Blood NEG mg/dL (<0.03); Urobilinogen,Urine NEG (NEG)
[2020-04-14] MEDS: TAMSULOSIN 0.4 MG CAPSULE PO SCH (21:01)
[2020-04-15] MEDS: 0.9 % SODIUM CHLORIDE 10 ML SYRINGE IV SCH ×3 (06:04→21:43)
[2020-04-15 06:44] LABS: Blood Urea Nitrogen 24 mg/dl (8-23); Carbon Dioxide 31 mmol/L (22-30); Chloride 99 mmol/L (96-108); Glomerular Filtration Rate 50; Glucose 93 mg/dL (70-105)
[2020-04-15] MEDS: LEVOTHYROXINE 25 MCG TABLET PO SCH (07:28)
[2020-04-15] MEDS: HEPARIN 5,000 UNIT/ML VIAL SQ SCH ×2 (08:52→20:15)
[2020-04-15] MEDS: TRELEGY INH SCH (08:53)
[2020-04-15] MEDS: DILTIAZEM 240 MG CAP.XL.24H PO SCH (08:53)
[2020-04-15] MEDS: DOCUSATE SODIUM 100 MG CAPSULE PO SCH ×2 (08:53→20:15)
[2020-04-15] MEDS: ASPIRIN 81 MG TAB.CHEW PO SCH (08:53)
[2020-04-15] MEDS: 0.9 % SODIUM CHLORIDE 250 ML IV SCH ×2 (09:15→21:43)
[2020-04-15] MEDS ORDERED: DILTIAZEM 25 MG/5 ML VIAL IV ONE ×2 (09:29→09:31)
[2020-04-15] MEDS: ATORVASTATIN 20 MG TABLET PO SCH (09:42)
[2020-04-15] MEDS: DILTIAZEM 125 MG in DEXTROSE 5% IN WATER 100 ML IV SCH ×2 (09:49→21:43)
--- NOTE | 2020-04-15 10:26 | Internal Med Progress Note ---
Medical - PN: Subj Patient information: Note initiated : 04/15/20 at 10:24 am Service Date, if different from initiated Date: [] Patient: Fareed West 84 y/o M admitted on 04/13/20 for Increased weakness and sob. Chief Complaint: [] Interval history: Mr. West is a 84 year old M Presents the ED with several days of shortness of breath and weakness. In the ED he was found to be hypotensive and tachycardic but appeared to be SVT. Than digoxin and then when his blood pressure came up was given diltiazem with better rate control. Old notes mention paroxysmal atrial fibrillation/flutter. Looking at some of the old EKGs no obvious fibrillation/flutter although a couple telemetry strips and the beginning of a EKG look like they might have started to catch this arrhythmia but difficult to tell. When EKG with an SVT in the past. Patient is never been on anticoagulation. Patient reports a chronic cough but nothing new, states he coughs up phlegm. Family members question whether or not he is taking his medications correctly. Patient denies any headache fever chills. Denies chest pain. No swelling in his legs. This x-ray shows chronic changes, including fibrosis. Had a recent CT chest. 04/14 Patient feeling well this morning. No complaints other than occasional shortness of breath but he does have chronic shortness of breath and chronic cough. Rhythm stable overnight. Telemetry with sinus and occasionally bigeminy, does have PVCs and PACs as well. 04/15-patient back in SVT with rate 180 unstable with blood pressure 70s. Vagal maneuvers temporarily slowed rate followed by administration of 10 mg IV diltiazem followed by drip with rate improving around 130s. Will up Titrate oral dose of diltiazem. Labs stable with creatinine 1.3. Status post King's catheter for urine retention up to 1400 cc. Will need outpatient urology follow-up on discharge - Constitutional Vitals: Vital Signs Temp Pulse Resp BP Pulse Ox 97.2 F 78 28 H 128/60 100 04/15/20 08:01 04/15/20 10:01 04/15/20 10:01 04/15/20 10:01 04/15/20 10:01 Period Temp Pulse Resp BP Sys/Roche Pulse Ox Last 24 Hr 97.2 F-99.4 F 25-122 13-32 75-151/34-124 82-100 Intake and Output 04/14/20 04/15/20 04/15/20 21:59 05:59 13:59 Intake Total 340 100 660 Output Total 1700 250 Balance -1360 -150 660 Weight 118 lb 2 oz Intake & Output: Intake & Output 04/14/20 04/15/20 04/15/20 21:59 05:59 13:59 Intake Total 340 100 660 Output Total 1700 250 Balance -1360 -150 660 Weight 118 lb 2 oz Intake: Oral 340 100 660 Output: Urine Catheter Amount 1550 250 Void Amount 150 Other: Meal Dinner Breakfast Percent of Meal Consumed 100% 100% Feeding Ability Independent Urine Appearance Clear Clear Uretheral (King) Clear Clear Clear Urine Color Light Rubi Light Rubi Uretheral (King) Light Rubi Light Rubi Light Rubi Urine Odor Normal Normal Stool Size Large Stool Color Brown Stool Consistency Formed General appearance: no acute distress Exam: Alert oriented Feels weak Telemetry SVT rate 180s Nonlabored breathing King's catheter Medical - PN: Obj Da - Labs CBC & Chem 7: 04/13/20 11:26 04/15/20 04:38 Labs: Abnormal Lab Results 04/15/20 04/14/20 04/13/20 04:38 04:35 11:26 RBC 4.19 L Hgb 12.9 L Hct 39.6 L Carbon Dioxide 31 H BUN 24 H 27 H Creatinine 1.3 H 1.4 H Glucose Uric Acid 9.0 H NT-Pro-B Natriuret Pep 04/13/20 11:25 RBC Hgb Hct Carbon Dioxide BUN 31 H Creatinine 1.7 H Glucose 118 H Uric Acid NT-Pro-B Natriuret Pep 3267.0 H Meds: Medications Acetaminophen (Tylenol) 650 mg PO Q6HP PRN PRN Reason: PAIN/FEVER > 101 Hydrocodone Bitart/Acetaminophen ([place] 7.5/325mg) 1 tab PO Q6HP PRN; Protocol PRN Reason: pain Last Admin: 04/14/20 14:08 Dose: 1 tab Documented by: Adenosine (Adenocard) 6 mg IV ONCE PRN PRN Reason: Tachyarrhythmias Albuterol/Ipratropium (Duoneb) 3 ml NEB Q4HP PRN PRN Reason: Shortness Of Breath Aspirin (Aspirin) 81 mg PO DAILY [facility] Last Admin: 04/15/20 08:53 Dose: 81 mg Documented by: Atorvastatin Calcium (Lipitor) 10 mg PO QDAY [facility] Last Admin: 04/15/20 09:42 Dose: 10 mg Documented by: Diltiazem HCl (Cardizem Cd) 240 mg PO DAILY [facility] Last Admin: 04/15/20 08:53 Dose: 240 mg Documented by: Docusate Sodium (Colace) 100 mg PO BID [facility] Last Admin: 04/15/20 08:53 Dose: 100 mg Documented by: Enalaprilat (Vasotec) 0 mg IV Q3HP PRN PRN Reason: Blood Pressure - High Heparin Sodium (Porcine) (Heparin) 5,000 unit SQ Q12 [facility] Last Admin: 04/15/20 08:52 Dose: 5,000 unit Documented by: Potassium Chloride 40 meq/ (Dextrose) 520 mls @ 130 mls/hr IV UD PRN PRN Reason: Potassium < 3 Magnesium Sulfate (Magnesium Sulfate) 2 gm in 50 mls @ 50 mls/hr IV UD PRN PRN Reason: Magnesium </= 1.6 Diltiazem HCl 125 mg/ Dextrose 125 mls @ 5 mls/hr IV Q12H [facility]; Protocol Last Admin: 04/15/20 09:49 Dose: 5 mg/hr, 5 mls/hr Documented by: Labetalol HCl (Trandate) 0 mg IV Q2HP PRN PRN Reason: Blood Pressure - High Last Admin: 04/14/20 00:39 Dose: 10 mg Documented by: Levothyroxine Sodium (Synthroid) 25 mcg PO QAMAC [facility] Last Admin: 04/15/20 07:28 Dose: 25 mcg Documented by: Nitroglycerin (Nitrostat) 0.4 mg SL Q5M PRN PRN Reason: Chest Pain Ondansetron HCl (Zofran) 4 mg IV Q4HP PRN PRN Reason: Nausea And Vomiting Trelegy Inhaler 1 dose INH DAILY [facility] Last Admin: 04/15/20 08:53 Dose: 1 dose Documented by: Polyethylene Glycol (Miralax) 17 gm PO DAILYP PRN PRN Reason: Constipation Potassium Chloride (Kdur) 40 meq PO UD PRN PRN Reason: Potssium is 3-3.5 Potassium Chloride (Kdur) 40 meq PO UD PRN PRN Reason: Potassium < 3 Senna (Senokot) 2 tab PO DAILYP PRN PRN Reason: Constipation Sodium Chloride (Saline Flush) 10 ml IV Q8 [facility] Last Admin: 04/15/20 06:04 Dose: 10 ml Documented by: Tamsulosin HCl (Flomax) 0.4 mg PO HS [facility] Last Admin: 04/14/20 21:01 Dose: 0.4 mg Documented by: Medical - PN: A/P - Time Spent With Patient Total time spent is greater than 50% in coordination of care (as documented) at patient's floor/unit and/or counseling patient: 25 - 35 minutes - Narrative A/P Narrative: * SVT w/borderline hypotension: several episodes in ED, additional episodes this morning. Requiring diltiazem bolus. * History of arrhythmia: -Old notes mention paroxysmal atrial flutter/fibrillation but unable to find any EKGs definitively showing this and patient not on anticoagulation -one was obviously SVT, others ?MAT specifically -is on diltiazem but family concerned he may not be taking consistently * possible medication noncompliance: * COPD (on 3L NC@home): Stable * HTN: home med diltiazem 240, will uptitrate dose * PVD: incluing HIMANSHU/LE dz/SUE with stents to carotids and LE's * CKD IIIb: Creatinine 1.3 * volume depletion: resolved Plan * Continue telemetry monitoring * Diltiazem up titration * Aspirin Plavix * Pre-existing medical condition management home meds * Discharge planning per case management * prophylaxis heparin Medical - PN: Qual - VTE Deep Vein Thrombosis/Pulmonary Embolism Present on Admission: No
[2020-04-15] MEDS: TAMSULOSIN 0.4 MG CAPSULE PO SCH (20:15)
[2020-04-16] MEDS: 0.9 % SODIUM CHLORIDE 10 ML SYRINGE IV SCH ×3 (05:22→20:12)
[2020-04-16 06:43] LABS: Basophils # (Auto) 0.04 K/mcL (0.00-0.30); Basophils % (Auto) 0.6 % (0.0-2.0); Eosinophils % (Auto) 4.8 % (0.0-7.0); Granulocytes % (Auto) 65.9 % (38.0-78.0); Hematocrit 36.6 % (40.1-51.0); Hemoglobin 11.3 g/dL (13.7-17.5); Lymphocytes # (Auto) 1.23 K/mcL (1.50-4.80); Lymphocytes % (Auto) 19.7 % (15.5-49.0); Mean Cell Volume 98.1 fL (80.0-100.0); Mean Corpuscular HGB Conc 30.9 g/dL (31.0-36.0); Mean Platelet Volume 9.4 fL (7.4-10.4); Monocytes # (Auto) 0.56 K/mcL (0.10-0.90); Platelet Count 212 K/mcL (140-440); RBC 3.73 M/mcL (4.63-6.08); Red Cell Distribution Width 13.1 % (11.5-14.5); WBC 6.2 K/mcL (4.50-11.00)
[2020-04-16 06:51] LABS: ALT/SGPT 9 U/l (0-40); AST/SGOT 14 U/l (0-37); Albumin 2.9 gm/dL (3.2-5.2); Alkaline Phosphatase 63 U/L (39-117); Bilirubin,Direct < 0.2 mg/dL (0.0-0.3); Bilirubin,Total 0.4 mg/dL (0.0-1.0); Blood Urea Nitrogen 21 mg/dl (8-23); Calcium 8.6 mg/dl (8.6-10.4); Carbon Dioxide 25 mmol/L (22-30); Chloride 99 mmol/L (96-108); Globulin 2.8 gm/dL (2.2-3.7); Glomerular Filtration Rate 61; Glucose 91 mg/dL (70-105); Lactate Dehydrogenase 166 U/L (94-250); Phosphorous 2.6 mg/dL (2.7-4.5); Triglycerides 95 mg/dl (<150); Uric Acid 7.5 mg/dL (2.5-8.0)
[2020-04-16] MEDS: LEVOTHYROXINE 25 MCG TABLET PO SCH (07:40)
[2020-04-16] MEDS: DOCUSATE SODIUM 100 MG CAPSULE PO SCH ×2 (08:23→20:11)
[2020-04-16] MEDS: ASPIRIN 81 MG TAB.CHEW PO SCH (08:23)
[2020-04-16] MEDS: HEPARIN 5,000 UNIT/ML VIAL SQ SCH ×2 (08:24→20:11)
[2020-04-16] MEDS: TRELEGY INH SCH (08:24)
[2020-04-16] MEDS: ATORVASTATIN 20 MG TABLET PO SCH (08:29)
[2020-04-16] MEDS ORDERED: DILTIAZEM 180 MG CAP.XL.24H PO SCH (09:00)
--- NOTE | 2020-04-16 10:12 | Internal Med Progress Note ---
Medical - PN: Subj Patient information: Note initiated : 04/16/20 at 10:10 am Service Date, if different from initiated Date: [] Patient: Fareed West 84 y/o M admitted on 04/13/20 for Increased weakness and sob. Chief Complaint: [] Interval history: Mr. West is a 84 year old M Presents the ED with several days of shortness of breath and weakness. In the ED he was found to be hypotensive and tachycardic but appeared to be SVT. Than digoxin and then when his blood pressure came up was given diltiazem with better rate control. Old notes mention paroxysmal atrial fibrillation/flutter. Looking at some of the old EKGs no obvious fibrillation/flutter although a couple telemetry strips and the beginning of a EKG look like they might have started to catch this arrhythmia but difficult to tell. When EKG with an SVT in the past. Patient is never been on anticoagulation. Patient reports a chronic cough but nothing new, states he coughs up phlegm. Family members question whether or not he is taking his medications correctly. Patient denies any headache fever chills. Denies chest pain. No swelling in his legs. This x-ray shows chronic changes, including fibrosis. Had a recent CT chest. 04/14 Patient feeling well this morning. No complaints other than occasional shortness of breath but he does have chronic shortness of breath and chronic cough. Rhythm stable overnight. Telemetry with sinus and occasionally bigeminy, does have PVCs and PACs as well. 04/15-patient back in SVT with rate 180 unstable with blood pressure 70s. Vagal maneuvers temporarily slowed rate followed by administration of 10 mg IV diltiazem followed by drip with rate improving around 130s. Will up Titrate oral dose of diltiazem. Labs stable with creatinine 1.3. Status post King's catheter for urine retention up to 1400 cc. Will need outpatient urology follow-up on discharge 04/16-intermittent SVTs. On diltiazem drip. On p.o. Cardizem 360. Ongoing PT OT. No overnight fever chills or concerns per staff. Creatinine down to 1.1. - Constitutional Vitals: Vital Signs Temp Pulse Resp BP Pulse Ox 98.3 F 51 L 20 125/45 100 04/16/20 08:00 04/15/20 12:01 04/16/20 09:00 04/16/20 09:00 04/16/20 09:00 Period Temp Pulse Resp BP Sys/Roche Pulse Ox Last 24 Hr 97.4 F-99.5 F 51 14-23 103-160/45-96 92-100 Intake and Output 04/15/20 04/16/20 04/16/20 21:59 05:59 13:59 Intake Total 518 240 Output Total 500 450 Balance 18 -210 Weight 119 lb 4.8 oz Intake & Output: Intake & Output 04/15/20 04/16/20 04/16/20 21:59 05:59 13:59 Intake Total 518 240 Output Total 500 450 Balance 18 -210 Weight 119 lb 4.8 oz Intake: IV 308 Sodium Chloride 0.9% 250 ml @ 249 20 mls/hr IV .[id number] [facility] Rx#: [id number] Cardizem 125 mg In Dextrose 5% 59 in Water 100 ml @ 5 MG/HR 5 mls /hr IV Q12H [facility] Rx#:[id number] Oral 210 240 Output: Urine Catheter Amount 500 450 Other: Meal Dinner Breakfast Percent of Meal Consumed 100% 100% Feeding Ability Independent Urine Appearance Clear Clear Uretheral (King) Clear Clear Urine Color Dark Yellow Dark Yellow Uretheral (King) Light Rubi Dark Yellow Urine Odor Normal General appearance: no acute distress Exam: Alert oriented No anxiety Intermittent SVT Nonlabored breathing Medical - PN: Obj Da - Labs CBC & Chem 7: 04/16/20 05:35 04/16/20 05:35 Labs: Abnormal Lab Results 04/16/20 04/16/20 04/15/20 05:35 05:35 04:38 RBC 3.73 L Hgb 11.3 L Hct 36.6 L MCHC 30.9 L Lymph # (Auto) 1.23 L Carbon Dioxide 31 H BUN 24 H Creatinine 1.3 H Glucose Uric Acid Phosphorus 2.6 L NT-Pro-B Natriuret Pep Total Protein 5.7 L Albumin 2.9 L 04/14/20 04/13/20 04/13/20 04:35 11:26 11:25 RBC 4.19 L Hgb 12.9 L Hct 39.6 L MCHC Lymph # (Auto) Carbon Dioxide BUN 27 H 31 H Creatinine 1.4 H 1.7 H Glucose 118 H Uric Acid 9.0 H Phosphorus NT-Pro-B Natriuret Pep 3267.0 H Total Protein Albumin Meds: Medications Acetaminophen (Tylenol) 650 mg PO Q6HP PRN PRN Reason: PAIN/FEVER > 101 Hydrocodone Bitart/Acetaminophen ([place] 7.5/325mg) 1 tab PO Q6HP PRN; Protocol PRN Reason: pain Last Admin: 04/14/20 14:08 Dose: 1 tab Documented by: Adenosine (Adenocard) 6 mg IV ONCE PRN PRN Reason: Tachyarrhythmias Albuterol/Ipratropium (Duoneb) 3 ml NEB Q4HP PRN PRN Reason: Shortness Of Breath Aspirin (Aspirin) 81 mg PO DAILY [facility] Last Admin: 04/16/20 08:23 Dose: 81 mg Documented by: Atorvastatin Calcium (Lipitor) 10 mg PO QDAY [facility] Last Admin: 04/16/20 08:29 Dose: 10 mg Documented by: Diltiazem HCl (Cardizem Cd) 360 mg PO DAILY [facility] Last Admin: 04/16/20 08:24 Dose: 360 mg Documented by: Docusate Sodium (Colace) 100 mg PO BID [facility] Last Admin: 04/16/20 08:23 Dose: 100 mg Documented by: Enalaprilat (Vasotec) 0 mg IV Q3HP PRN PRN Reason: Blood Pressure - High Heparin Sodium (Porcine) (Heparin) 5,000 unit SQ Q12 [facility] Last Admin: 04/16/20 08:24 Dose: 5,000 unit Documented by: Potassium Chloride 40 meq/ (Dextrose) 520 mls @ 130 mls/hr IV UD PRN PRN Reason: Potassium < 3 Magnesium Sulfate (Magnesium Sulfate) 2 gm in 50 mls @ 50 mls/hr IV UD PRN PRN Reason: Magnesium </= 1.6 Diltiazem HCl 125 mg/ Dextrose 125 mls @ 5 mls/hr IV Q12H [facility]; Protocol Last Admin: 04/15/20 21:43 Dose: Not Given Documented by: Sodium Chloride (Sodium Chloride 0.9%) 250 mls @ 20 mls/hr IV .[id number] [facility] Last Infusion: 04/15/20 21:43 Dose: 0 mls/hr Documented by: Labetalol HCl (Trandate) 0 mg IV Q2HP PRN PRN Reason: Blood Pressure - High Last Admin: 04/14/20 00:39 Dose: 10 mg Documented by: Levothyroxine Sodium (Synthroid) 25 mcg PO QAMAC [facility] Last Admin: 04/16/20 07:40 Dose: 25 mcg Documented by: Nitroglycerin (Nitrostat) 0.4 mg SL Q5M PRN PRN Reason: Chest Pain Ondansetron HCl (Zofran) 4 mg IV Q4HP PRN PRN Reason: Nausea And Vomiting Trelegy Inhaler 1 dose INH DAILY [facility] Last Admin: 04/16/20 08:24 Dose: 1 dose Documented by: Polyethylene Glycol (Miralax) 17 gm PO DAILYP PRN PRN Reason: Constipation Potassium Chloride (Kdur) 40 meq PO UD PRN PRN Reason: Potssium is 3-3.5 Potassium Chloride (Kdur) 40 meq PO UD PRN PRN Reason: Potassium < 3 Senna (Senokot) 2 tab PO DAILYP PRN PRN Reason: Constipation Sodium Chloride (Saline Flush) 10 ml IV Q8 [facility] Last Admin: 04/16/20 05:22 Dose: 10 ml Documented by: Tamsulosin HCl (Flomax) 0.4 mg PO HS [facility] Last Admin: 04/15/20 20:15 Dose: 0.4 mg Documented by: Medical - PN: A/P - Time Spent With Patient Total time spent is greater than 50% in coordination of care (as documented) at patient's floor/unit and/or counseling patient: 25 - 35 minutes - Narrative A/P Narrative: * SVT w/borderline hypotension: several episodes in ED, additional episodes this morning. Transition to oral diltiazem 360 and uptitrate to effect * History of arrhythmia: -Old notes mention paroxysmal atrial flutter/fibrillation but unable to find any EKGs definitively showing this and patient not on anticoagulation -one was obviously SVT, others ?MAT specifically -is on diltiazem but family concerned he may not be taking consistently * possible medication noncompliance: * COPD (on 3L NC@home): Stable * HTN: On diltiazem * PVD: incluing HIMANSHU/LE dz/SUE with stents to carotids and LE's * CKD IIIb: Creatinine 1.3 * volume depletion: resolved Plan * Continue uptitrating diltiazem/telemetry monitoring * Pre-existing medical condition management home meds * Discharge planning per case management * PT OT nutrition support * prophylaxis heparin Medical - PN: Qual - VTE Deep Vein Thrombosis/Pulmonary Embolism Present on Admission: No
[2020-04-16] MEDS: DILTIAZEM 125 MG in DEXTROSE 5% IN WATER 100 ML IV SCH ×3 (12:12→21:17)
[2020-04-16] MEDS: 0.9 % SODIUM CHLORIDE 250 ML IV SCH ×2 (12:13→15:24)
[2020-04-16] MEDS: 0.9 % SODIUM CHLORIDE 1,000 ML IV SCH ×2 (12:43→20:00)
[2020-04-16] MEDS ORDERED: DILTIAZEM 125 MG/25 ML VIAL IV ONE (15:25)
[2020-04-16] MEDS: DILTIAZEM 30 MG TABLET PO SCH (20:11)
[2020-04-16] MEDS: TAMSULOSIN 0.4 MG CAPSULE PO SCH (20:11)
[2020-04-17] MEDS: DILTIAZEM 30 MG TABLET PO SCH ×2 (00:21→05:54)
[2020-04-17] MEDS: 0.9 % SODIUM CHLORIDE 250 ML IV SCH (00:57)
[2020-04-17] MEDS: 0.9 % SODIUM CHLORIDE 10 ML SYRINGE IV SCH (05:54)
[2020-04-17] MEDS ORDERED: DILTIAZEM 125 MG in DEXTROSE 5% IN WATER 100 ML IV PRN (07:15)
[2020-04-17] MEDS: LEVOTHYROXINE 25 MCG TABLET PO SCH (07:24)
[2020-04-17] MEDS: ASPIRIN 81 MG TAB.CHEW PO SCH (08:26)
[2020-04-17] MEDS: ATORVASTATIN 20 MG TABLET PO SCH (08:26)
[2020-04-17] MEDS: DOCUSATE SODIUM 100 MG CAPSULE PO SCH (08:26)
[2020-04-17] MEDS: TRELEGY INH SCH (08:26)
[2020-04-17] MEDS: HEPARIN 5,000 UNIT/ML VIAL SQ SCH (08:26)
[2020-04-17] MEDS ORDERED: DILTIAZEM 240 MG CAP.XL.24H PO ONE (09:15)
--- NOTE | 2020-04-17 10:28 | Discharge Summary ---
Medical - DS: Prov Patient information: Note initiated : 04/17/20 at 10:24 am Service Date, if different from initiated Date: [] Patient: Fareed West 84 y/o M admitted on 04/13/20 for Increased weakness and sob. Chief Complaint: [] Date of admission: 04/13/20 15:15 Discharge date: 04/17/20 Primary care physician: Janine Andujar Consults: 04/13/20 13:47 Consult to Physician [CONS] Stat Comment: Consulting Provider: Dale Romano Reason For Exam: Physician to Consult Medical - DS: Meds - Discharge Medications Prescriptions: Diltiazem [Cardizem Cd] 240 mg PO BID #60 cap.xl.24h Transmission Status: Pending to [facility] Tamsulosin [Flomax] 0.4 mg PO HS #30 cap Transmission Status: Pending to [facility] Active and Home Medications: Home Medications ascorbic acid (vitamin C) 250 mg tablet 500 mg PO QHS tab 01/21/18 [History Confirmed 04/13/20 Last Taken 04/12/20] aspirin 325 mg tablet 325 mg PO QDAY 01/21/18 [History Confirmed 04/13/20 Last Taken 04/13/20] atorvastatin 10 mg tablet 10 mg PO QDAY #90 tab 03/10/18 [Rx Confirmed 04/13/20 Last Taken 04/13/20] cholecalciferol (vitamin D3) 50 mcg (2,000 unit) capsule 2,000 unit PO QDAY cap 07/06/18 [History Confirmed 04/13/20 Last Taken 04/13/20] cyanocobalamin (vitamin B-12) 1,000 mcg tablet 1,000 mcg PO QDAY 07/06/18 [History Confirmed 04/13/20 Last Taken 04/13/20] hydrocodone 7.5 mg-acetaminophen 325 mg tablet 1 tab PO Q6H PRN #30 tab 09/13/18 [Rx Confirmed 04/13/20 Last Taken 05/14/19] nitroglycerin 0.4 mg sublingual tablet 0.4 mg SUBLINGUAL Q5-15M PRN 02/28/19 [History Confirmed 04/13/20 Last Taken Unknown] furosemide 20 mg tablet 20 mg PO BID #180 tab 07/03/19 [History Confirmed 04/13/20 Last Taken 04/13/20] levothyroxine 25 mcg capsule 25 mcg PO QDAY 07/03/19 [History Confirmed 04/13/20 Last Taken 04/13/20] Trelegy 1 puff IH DAILY 04/06/20 [History Confirmed 04/13/20 Last Taken 04/13/20] Diltiazem [Cardizem Cd] 240 mg PO BID #60 cap.xl.24h 04/17/20 [Rx Last Taken Unknown] Tamsulosin [Flomax] 0.4 mg PO HS #30 cap 04/17/20 [Rx Last Taken Unknown] Medical - DS: Hosp Hospital Course: Discharge diagnosis * Recurrent SVT/a flutter with RVR responded well to diltiazem 480 mg daily in 2 divided doses. Patient has prior history of arrhythmia. Old notes mention paroxysmal atrial flutter/fibrillation , he was on diltiazem 240 but family concerned he may not be taking consistently. Medication noncompliance remains a high risk for future recurrence of SVTs and consideration of anticoagulation for CVA prophylaxis. * COPD (on 3L NC@home): Stable on intermittent bronchodilators * HTN: Now on diltiazem 240 CD twice daily(total dose 480) * PVD: incluing HIMANSHU/LE dz/SUE with stents to carotids and LE's * CKD IIIb: Creatinine 1.3 * volume depletion: resolved Brief hospital course Mr. West is a 84 year old M Presents the ED with several days of shortness of breath and weakness. In the ED he was found to be hypotensive and tachycardic but appeared to be SVT. Than digoxin and then when his blood pressure came up was given diltiazem with better rate control. Old notes mention paroxysmal atrial fibrillation/flutter. Looking at some of the old EKGs no obvious fibrillation/flutter although a couple telemetry strips and the beginning of a EKG look like they might have started to catch this arrhythmia but difficult to tell. When EKG with an SVT in the past. Patient is never been on anticoagulation. Patient reports a chronic cough but nothing new, states he coughs up phlegm. Family members question whether or not he is taking his medications correctly. Patient denies any headache fever chills. Denies chest pain. No swelling in his legs. This x-ray shows chronic changes, including fibrosis. Had a recent CT chest. 04/14 Patient feeling well this morning. No complaints other than occasional shortness of breath but he does have chronic shortness of breath and chronic cough. Rhythm stable overnight. Telemetry with sinus and occasionally bigeminy, does have PVCs and PACs as well. 04/15-patient back in SVT with rate 180 unstable with blood pressure 70s. Vagal maneuvers temporarily slowed rate followed by administration of 10 mg IV diltiazem followed by drip with rate improving around 130s. Will up Titrate oral dose of diltiazem. Labs stable with creatinine 1.3. Status post King's catheter for urine retention up to 1400 cc. Will need outpatient urology follow-up on discharge 04/16-intermittent SVTs. On diltiazem drip. On p.o. Cardizem 360. Ongoing PT OT. No overnight fever chills or concerns per staff. Creatinine down to 1.1. 04/17-patient clinically improved. Now on diltiazem for a KENZIE however divided into doses due to batch freezer weaning effect leading to RVR. Patient tolerating 480 diltiazem fairly well without hypotension or episodic low heart rate. Discharging with advised to follow-up with primary care physician. At this time due to prior history of noncompliance anticoagulation is not started despite patient remaining high risk cardioembolic phenomena due to chads score. Will defer discussion with primary care physician and should patient become adherent to his medications would be a good candidate for lifelong anticoagulation for CVA prophylaxis. Discharge diagnosis: . - Time Spent with Patient Total time spent providing and/or coordinating discharge services: Greater than 30 minutes Medical - DS: Exam - Constitutional Vitals: Vital Signs Temp Pulse Resp BP Pulse Ox 04/17/20 09:10 21 125/53 99 04/17/20 08:01 97.4 F 20 142/54 91 04/17/20 08:00 19 92 04/17/20 07:28 20 92 04/17/20 07:02 18 97 04/17/20 07:01 21 129/61 96 04/17/20 06:01 18 159/56 96 04/17/20 05:01 15 146/59 94 04/17/20 04:01 97.9 F 20 126/54 94 04/17/20 03:01 24 H 139/53 97 04/17/20 02:01 21 139/49 97 04/17/20 01:42 77 21 92 04/17/20 01:02 21 119/52 99 04/17/20 00:01 99.1 F H 20 142/64 100 04/16/20 23:01 22 125/53 98 04/16/20 22:01 25 H 128/53 100 04/16/20 21:01 20 132/56 95 04/16/20 20:01 98.8 F 21 133/56 98 04/16/20 19:02 21 127/46 99 04/16/20 18:01 24 H 156/52 96 04/16/20 17:01 18 152/56 100 04/16/20 16:00 99.2 F H 24 H 121/59 99 04/16/20 15:01 15 97/47 96 04/16/20 14:01 34 H 117/56 98 04/16/20 14:00 21 117/56 98 04/16/20 13:47 77 20 98 04/16/20 13:06 20 125/51 99 04/16/20 13:00 97.2 F 20 125/51 98 04/16/20 12:02 19 99 04/16/20 12:01 98.9 F 20 121/53 100 04/16/20 11:01 22 123/59 96 04/16/20 11:00 20 98 Intake and Output 04/16/20 04/17/20 04/17/20 21:59 05:59 13:59 Intake Total 1264 172 240 Output Total 450 325 Balance 814 -153 240 Intake: Nourishment/Supplement quantity 240 (ml) IV 1054 172 Sodium Chloride 0.9% 1,000 ml @ 1000 150 mls/hr IV .[id number] ONOFRE Rx#: [id number] Sodium Chloride 0.9% 250 ml @ 0 172 20 mls/hr IV .[id number] ONOFRE Rx#: [id number] Cardizem 125 mg In Dextrose 5% 54 in Water 100 ml @ 5 MG/HR 5 mls /hr IV Q12H ONOFRE Rx#:[id number] Oral 210 Output: Urine Catheter Amount 450 325 Other: Meal Breakfast Percent of Meal Consumed 100% Feeding Ability Independent Nourishment/Supplement name ensure Urine Appearance Clear Clear Clear Uretheral (King) Clear Clear Clear Urine Color Bright Yellow Bright Yellow Dark Yellow Uretheral (King) Bright Yellow Dark Yellow Dark Yellow Urine Odor Normal Normal Weight 121 lb 8 oz Medical - DS: A/P - Patient/Caregiver Discharge Instructions Activity: increase activity as tolerated Diet: Regular Diet Additional Instructions: Follow-up PCP in 5- 7 days Continue diltiazem 240 CD twice daily(total dose 480) I recommend primary care physician to check CBC BMP UA as a posthospital follow- up in 1 week. Primary care to discuss anticoagulation for CVA prophylaxis if patient remains compliant and adherent to his medications Continue fall precautions High protein calorie supplements All meals on chair sitting upright at 90 degrees to prevent aspiration Return to ER if worsening fever chills shortness of breath, diarrhea, bleeding Review risk and side effect profile of medications including higher dose of diltiazem. Side effect may include mild to severe reaction including bradycardia/hypotension/dizziness and fall and even which can be prevented by close follow-up with PCP and monitoring for side effects Continue diet and activity as advised Discussed importance of medication adherence Please review medication list with patient prior to discharge Please schedule follow-up with PCP/Providers prior to discharge and provide printouts Prescriptions: Diltiazem [Cardizem Cd] 240 mg PO BID #60 cap.xl.24h Transmission Status: Pending to [facility] Tamsulosin [Flomax] 0.4 mg PO HS #30 cap Transmission Status: Pending to [facility] - Follow up Plan Follow up with: Janine Andujar, ANDREEA, [employer] [Primary Care Provider] - 04/24/20 10:00 am (Please ch mitzy in at 9:45 am and wear a mask. If you do not have one, they will supply one.) Goldy Garcia MD [Physician] - (A referral has been sent, they will contact you to schedule an appointment) Disposition: Home, Self-Care Care Plan Goals: This discharge packet is provided to you to help keep you informed about your care. We want to ensure you get everything you need when you go home. You will also be receiving a call from us in a few days to follow up with you and see how you are doing since your discharge. This gives us a chance to listen to any concerns you maybe experiencing since you were discharged or any additional needs you may have, as well as providing us feedback on your care experience. We strive to always provide excellent care and thank you for your feedback and for choosing [facility]. Prognosis: Fair Rehab Potential: Fair I certify that the patient requires SNF services: No Overall status at discharge: patient is progressing back to baseline Medical - DS: Qual - VTE Deep Vein Thrombosis/Pulmonary Embolism Present on Admission: No
== END 2020-04-17 11:32 | disposition home or self-care (01) | DRG 309 ==
LOC: ED 10:57 → ICU 15:15 → INTOOBSV 15:15 → OBSVTOIN 15:15
PROVIDERS: ADMIT Internal Medicine; ATTEND Internal Medicine